=== PATIENT | male | born 1935 | race Caucasian/White ===

== ENCOUNTER 2022-08-05 05:32 | Inpatient (IN) | payer MEDICARE, SELFPAY ==
[2022-08-05] VITALS (175 sets, daily range): BP systolic 87–119; BP diastolic 45–75; PULSE 65–87; RESP 11–33; TEMP 36.5–36.6; O2SAT 74–99; BMI 22.3
--- NOTE | 2022-08-05 05:49 | ECG_ITS ---
[facility] Test Date: 2022-08-05 Pat Name: Donny Marshall Department: Room: ICU02 Gender: Male Irrigator: : 1935 Requested By: Virginia Romero Order Number: [id number] Crystal MD: Benigno Geller M.D. Measurements Intervals [place] Rate: 86 P: 39 VA: 136 QRS: -54 QRSD: 129 T: 74 QT: 386 QTc: 464 Interpretive Statements SINUS RHYTHM LEFT ANTERIOR FASCICULAR BLOCK [QRS AXIS <= -45, QR IN I, RS IN II] MARKED ST DEPRESSION, CONSIDER SUBENDOCARDIAL INJURY [0.2+ mV ST DEPRESSION] ACUTE [place] No previous ECG available for comparison Electronically Signed On 08-05-2022 17:37:12 CDT by Benigno Geller M.D. [id number]
--- NOTE | 2022-08-05 05:52 | XRR_ITS ---
PROCEDURE INFORMATION: Exam: XR Chest Exam date and time: 08/05/2022 6:00 AM Age: 87 years old Clinical indication: Shortness of breath; Prior surgery; Surgery date: 6+ months; Surgery type: Cabg. Valve replacement; Patient HX: SOB. History of chf. TECHNIQUE: Imaging protocol: Radiologic exam of the chest. Views: 1 view. COMPARISON: No relevant prior studies available. FINDINGS: Lungs: There is central lower lung predominant ground-glass opacity. Central interstitial markings are ill-defined. Pleural spaces: There is no pleural effusion or pneumothorax. Heart/Mediastinum: There is mild enlargement of the cardiac silhouette. Bones/joints: Sternal wires are present. There is no displacement to suggest sternal dehiscence. No acute fracture. XR/XR chest 1V portable [id number] IMPRESSION: Probable pulmonary edema. Infection is not excluded.
--- NOTE | 2022-08-05 05:52 | USCV_ITS ---
Donny Marshall Age: 87 Gender: M : 1935 Exam Date: 08/05/2022 08:09 Ordering Phys: Virginia Romero MD Technologist: Ariel Bland Exam Location: [facility] [place] Indication: nstemi BP: 112 / 64 HR: 75 Rhythm: Sinus Technical Quality: Technically difficult study MEASUREMENTS (Male / Female) Normal Values 2D ECHO LVOT Diameter 2.0 cm LV Ejection Fraction MOD 2C 35.6 % LV Ejection Fraction 2C AL 36.6 % IVC Diameter 1.5 cm DOPPLER AV Peak Velocity 256.4 cm/s LVOT Peak Velocity 83.0 cm/s AV Area Cont Eq vti 1.1 cm squared AV Area Cont Eq pk 1.0 cm squared MV Area PHT 5.0 cm squared Mitral E to A Ratio 2.1 MV E' Velocity 74.0 cm/s Mitral E to MV E' Ratio 31.9 Mitral E to LV E' Lateral Ratio 32.6 Mitral E to LV E' Septal Ratio 31.9 TR Peak Velocity 233.0 cm/s TR Peak Gradient 21.7 mmHg TV Peak E Velocity 76.0 cm/s Right Atrial Pressure 3.0 mmHg Pulmonary Artery Systolic Pressu 24.7 mmHg FINDINGS Left Ventricle Technically limited quality echocardiogram. Grossly LV systolic function is moderately reduced with EF of 35 to 40%. Right Ventricle Not well visualized Right Atrium Not well visualized Left Atrium Not well visualized Mitral Valve Mitral valve is grossly thickened and calcified. Aortic Valve Not well-visualized. Mildly elevated gradients across the aortic valve with mean gradient across aortic valve is 17 mmHg. Tricuspid Valve Not well-visualized. Trace tricuspid regurgitation Pulmonic Valve Not well visualized Pericardium Grossly normal Aorta Normal in size IVC Not well visualized CONCLUSIONS Technically limited quality echocardiogram because of poor ultrasonic windows. Grossly LV systolic function is moderately reduced with EF of 35 to 40%. Mildly elevated gradients across aortic valve with mean gradient across valve of 17mmHg. Trace tricuspid regurgitation. No comparison studies are available. Benigno Geller MD (Electronically Signed) Final Date: 05 August 2022 18:46 S
--- NOTE | 2022-08-05 05:58 | USCV_ITS ---
Donny Marshall Age: 87 Gender: M : 1935 Exam Date: 08/05/2022 08:38 Ordering Phys: Virginia Romero MD Technologist: Ariel Bland [place] [facility] [place]: edema PROCEDURES: Venous duplex imaging was performed in bilateral lower extremities. The venous duplex Doppler examination of both lower extremities was performed in the standard fashion. Bilaterally, the common femoral, superficial femoral, profunda femoral, popliteal, posterior tibial, greater saphenous veins, and the peroneal trunk . FINDINGS: Normal 2-D Doppler and augmentation and compressibility throughout the lower extremity venous structures. Additional imaging through the proximal calf veins also reveals no thrombus. Limited evaluation of the greater saphenous vein is patent with no thrombus. CONCLUSIONS No DVT bilateral lower extremities. Dr. Kathia Holliday DO (Electronically Signed) Final Date: 05 August 2022 11:28 S
[2022-08-05] MEDS: FUROsemide 10 mg/mL SDV 4mL 40 MG IVP ×3 (06:07→18:58)
[2022-08-05] MEDS: heparin drip 25,000 UNIT/500 ML PREMIX 20 UNIT IV (06:08)
[2022-08-05 06:11] LABS: Basophils % 0.2 %; Eosinophils % 0.1 %; Hematocrit 26.1 % (42.0-52.0); Hemoglobin 8.7 g/dL (11.7-16.6); Lymphocytes # 1.8 10^3/uL (0.8-4.8); Lymphocytes % 14.7 %; Mean Corpuscular HGB Conc 33.3 g/dL (30.0-36.0); Mean Corpuscular Volume 98.9 fl (80-94); Monocytes # 1.2 10^3/uL (0.2-0.9); Monocytes % 9.8 %; Neutrophils # 9.36 10^3/uL (1.8-7.7); Neutrophils % 74.7 %; Nucleated Red Blood Cells % 0 %; Platelet Count 206 10^3/cmm (130-400); Red Blood Count 2.64 10^6/uL (4.1-5.3); Red Cell Distribution Width 15.3 % (12.1-15.1); White Blood Count 12.5 10^3/uL (4.0-10.0)
[2022-08-05 06:28] LABS: Alanine Aminotransferase 23 U/L (0-41); Albumin Level 3.4 g/dL (3.5-5.2); Alkaline Phosphatase 50 U/L (40-130); Anion Gap 14.2 (5-19); Aspartate Amino Transferase 26 U/L (0-40); Blood Urea Nitrogen 38 mg/dL (8-23); Calcium 7.9 mg/dL (8.5-10.5); Carbon Dioxide 26 mmol/L (22-29); Chloride 96 mmol/L (98-107); Globulin 2.1 g/dL (1.3-4.6); Glucose 128 mg/dL (65-115); Osmolality Calculated 285 mOsm/kg (285-295); Potassium 4.2 mmol/L (3.5-5.1); Sodium 132 mmol/L (136-145); Total Bilirubin 0.3 mg/dL (0.15-1.2); Total Protein 5.5 g/dL (6.6-8.7)
[2022-08-05 06:32] LABS: Troponin(5th) Baseline 134 ng/L (0-15)
[2022-08-05] MEDS: morphine 4 mg/mL SDV 1 mL 2 MG IVP ×2 (06:48→15:57)
[2022-08-05 06:53] LABS: Partial Thromboplastin Time 196.9 SECONDS (23.9-36.7)
[2022-08-05 07:11] LABS: ABG PCO2 46.2 mmHg (35-45); Arterial Blood Gas Hematocrit 28.7 % (42-52); Base Excess ABG 2.9 mmol/L (-2.0-2.0); Blood Gas Allen Test Pos; Blood Gas Operator Identificat WALCI; Blood Gas Sample Site Radial, right; Blood Gas Sample Type Arterial; HCO3 ABG 28.3 mmol/L (22-26); Oxygen Device NRB; PO2 ABG 79.5 mmHg (80.0-100.0)
--- NOTE | 2022-08-05 07:12 | PM.HP ---
Providers/Chief Complaint Admitting Physician: Virginia Romero MD Chief Complaint: Chest Pain History of Present Illness Donny Marshall is a 87 year old male with a past medical history of CAD, status post CABG many years ago, history of aortic valve replacement, history of abdominal aortic aneurysm, last stents placed in 2018. He presented to [facility] last evening with chief complaints of chest pain which started close to 9 PM. Patient was in his usual state of health prior to this. Pain was rated 8 out of 10, substernal, associated with diaphoresis and shortness of breath. Patient is significantly dyspneic at the time of arrival at our facility. He is requiring 10 L on nonrebreather mask and saturating 94%. Patient's blood pressure at the outside facility was 90/60 so he did receive a 2 L fluid bolus and was running IV fluids which have now been discontinued due to concern for CHF. At this present time he rates his chest pain as 6 out of 10. States that his breathing is slightly better than before. He has not received any diuretics thus far. EMS did give him 2-3 nitros which appeared to improve in pain, however further doses have been held off due to soft blood pressures. His EKG is showing diffuse ST depression between leads V2 to V6, baseline troponin here is at 136. Previous values of Trop I from [facility] are at 0.012 and 0.04. Since presenting to the hospital he has developed a slight cough however did not have any complains of fever chills cough or expectoration prior to being at the hospital. Review of Systems General: Reports: 10 or more systems reviewed and unremarkable except in HPI and below Const: Denies: fever(s), chills or body aches Eyes: Denies: change in vision, blurry vision or photophobia ENMT: Reports: hoarseness; Denies: throat pain, enlarged tonsils, odynophagia or nasal congestion Card: Denies: chest pain, palpitations, irregular heart rhythm, edema, swelling of feet/ankles, lightheadedness, pre-syncope, dyspnea on exertion or orthopnea Resp: Denies: dyspnea, productive cough, non-productive cough, wheezing, stridor, pain on inspiration, change in phlegm color, hemoptysis or chest congestion GI: Denies: abdominal pain, nausea, vomiting, hematemesis, coffee ground emesis, dysphagia, heartburn, diarrhea, constipation, GI cramping, change in stool character, hematochezia or melena : Denies: flank pain, dysuria, urinary frequency, urinary urgency, urinary hesitancy or hematuria Musc: Denies: neck pain, back pain, extremity pain, joint swelling, joint warmth or deformity Neuro: Denies: headache(s), numbness in extremities, weakness in extremities, sensory changes, difficulty walking, frequent falls, dizziness, vertigo, behavioral changes, Slurred speech present or seizure-like activity Psych: Denies: anxiety, depression, suicidal ideation or homicidal ideation Endo: Denies: polyuria, polydipsia, tired all the time, cold intolerance or hot flashes Khris/Lymph: Denies: easy bruising or easy bleeding Medications/Allergies Allergies Allergy/AdvReac Type Severity Reaction Status Date / Time No Known Allergies Allergy Verified 08/05/22 05:50 PFSH Acute PFSH: Medical History (Updated 08/05/22 @ 07:20 by Virginia Romero MD) Abdominal aortic aneurysm Coronary artery disease Hypertension Surgical History (Updated 08/05/22 @ 07:17 by Virginia Romero MD) Aortic valve replaced S/P CABG (coronary artery bypass graft) Vitals/I&O/Wt Last Vital Signs Temp 97.9 F 08/05/22 05:30 Pulse 80 08/05/22 06:30 Resp 31 H 08/05/22 06:48 BP 117/64 08/05/22 06:30 Pulse Ox 94 08/05/22 06:48 O2 Del Method Non-Rebreather 08/05/22 05:46 08/04/22 08/05/22 08/05/22 22:59 06:59 14:59 Intake Total 15.333 / 15.333 Balance 15.333 / 15.333 Weight last 48 hrs Weight 72.5 kg Physical Exam Narrative: General: Tachypneic, on NRB currently HEENT: PERRLA, pupils bilaterally equal and reactive, pallors not present Chest: Crackles to auscultation bilateral infra axillary and infrascapular areas. CVS: S1-S2 regular, no murmurs, no tachycardia, no gallops, no rubs Abdomen: Soft, nontender, no organomegaly, bowel sounds present Neuro: No focal deficits, no facial deformity, AO x3, power 5/5 in all limbs Extremities: Pitting edema bilateral lower extremities Urinary Catheter Management: Elizabeth: Cath Placed During This Visit: yes Urinary Catheter Date of Insertion: 08/05/22 Urinary Catheter Time of Insertion: 06:15 Data 08/05/22 05:59 08/05/22 05:59 A&P Assessment and plan (1) NSTEMI (non-ST elevated myocardial infarction): Admit to ICU 87-year-old male with significant past medical history as above presenting currently with chest pain that started last night. EKG shows diffuse ST depression between leads V2 to V6. Baseline troponin here is at 130, previously dropped by from [facility] at 0.01-1.04. Patient is currently on a heparin drip which was started at outside hospital, we will continue the same He has received aspirin 325 and 3 nitros via EMS. Further doses of nitroglycerin are being held currently because of low blood pressure. Aspirin 81 mg, atorvastatin 40 mg going forward. Initial MAP 55 upon arrival, started on Levophed infusion with a goal map of greater than 65. Hypotension may be a result of nitrate therapy versus cardiogenic shock. Echocardiogram has been ordered. Cardiology consult (2) CHF (congestive heart failure): Clinically showing signs of CHF. Bilateral lower extremity edema BNP 1300 from outside hospital Check chest x-ray, bilateral crackles on auscultation currently. Unable to comment on type or chronicity of heart failure. Patient reports he takes Lasix at home, does not know his last EF. Echo ordered today Lasix 40 mg IV stat, further to be dependent on urine output Discontinue IV fluids as started at outside hospital Stat ABG, followed by BiPAP if needed, currently patient is requiring 10 to 11 L/min via nonrebreather mask. He is okay to be intubated if needed to undergo coronary angiogram today. Prior records requested from [facility]. (3) Cardiogenic shock: Currently on Levophed, titrated to a map of 65 Plan DVT prophylaxis: Currently on a heparin drip which will suffice Full code All updates discussed with his son Gigi Marshall, son request that we call son with all updates and not patient's as she is currently ill. Attestations Medical Necessity Statement*: Greater than 2 midnight admission will be needed for above defined care Coding Level of Care Code Critical Care >/= 30 minutes Diagnoses NSTEMI (non-ST elevated myocardial infarction) I21.4 CHF (congestive heart failure) I50.9 Cardiogenic shock R57.0
[2022-08-05] MEDS: ondansetron 2 mg/ML SDV 2 mL 4 MG IVP (07:34)
--- NOTE | 2022-08-05 07:46 | ECG_ITS ---
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 Measurements Intervals Davin Rate: 73 P: 34 OK: 156 QRS: -39 QRSD: 109 T: 91 QT: 389 QTc: 431 Interpretive Statements SINUS RHYTHM LEFT AXIS DEVIATION [QRS AXIS < -30] SEPTAL MYOCARDIAL INFARCTION , PROBABLY OLD [40+ ms Q WAVE IN V1/V2] ST DEPRESSION, CONSIDER SUBENDOCARDIAL INJURY [0.1+ mV ST DEPRESSION] No previous ECG available for comparison Electronically Signed On 08-05-2022 17:38:40 CDT by Benigno Geller M.D. [id number]
[2022-08-05] MEDS: perflutren protein-a microsphr 0.22 mg/mL SDV 3 mL IV (08:48)
--- NOTE | 2022-08-05 09:19 | P.CONIM_ITS ---
Providers/Reason For Consult Consulting Physician/Specialty*: Benigno Geller MD/ Cardiology Reason for Consult*: NSTEMI Requesting Physician: Dr Romero Attending Physician: Reese Garcia History of Present Illness History of Present Illness Donny Marshall is a 87 year old male With past medical history of CAD s/p CABG x2,Aortic valve replacement who presented to outside hospital with several hours of substernal chest pain. It was severe in intensity. He was transferred to our center overnight. Initial troponin was 134 . Still having mild to moderate substernal chest pain.EKG shows diffuse ST depressions with aVR elevation.Patient is also having significant shortness of breath and on non- rebreather mask. Review of Systems General: Reports: 10 or more systems reviewed and unremarkable except in HPI and below Const: Denies: fever(s), chills or body aches Eyes: Denies: change in vision, blurry vision or photophobia ENMT: Reports: hoarseness; Denies: throat pain, enlarged tonsils, odynophagia or nasal congestion Card: Denies: chest pain, palpitations, irregular heart rhythm, edema, swelling of feet/ankles, lightheadedness, pre-syncope, dyspnea on exertion or orthopnea Resp: Denies: dyspnea, productive cough, non-productive cough, wheezing, stridor, pain on inspiration, change in phlegm color, hemoptysis or chest catrina estion GI: Denies: abdominal pain, nausea, vomiting, hematemesis, coffee ground emesis, dysphagia, heartburn, diarrhea, constipation, GI cramping, change in stool character, hematochezia or melena : Denies: flank pain, dysuria, urinary frequency, urinary urgency, urinary hesitancy or hematuria Musc: Denies: neck pain, back pain, extremity pain, joint swelling, joint warmth or deformity Neuro: Denies: headache(s), numbness in extremities, weakness in extremities, sensory changes, difficulty walking, frequent falls, dizziness, vertigo, behavioral changes, Slurred speech present or seizure-like activity Psych: Denies: anxiety, depression, suicidal ideation or homicidal ideation Endo: Denies: polyuria, polydipsia, tired all the time, cold intolerance or hot flashes Khris/Lymph: Denies: easy bruising or easy bleeding Medications/Allergies Home Medications Medication Instructions Recorded Confirmed Last Taken Type allopurinol 300 mg tablet 300 mg PO DAILY 08/05/22 08/05/22 Unknown History amlodipine 10 mg tablet 10 mg PO QPM 08/05/22 08/05/22 Unknown History atorvastatin 80 mg tablet 80 mg PO QPM 08/05/22 08/05/22 Unknown History carvedilol 6.25 mg tablet 12.5 mg PO BID 08/05/22 08/05/22 Unknown History furosemide 20 mg tablet 40 mg PO DAILY 08/05/22 08/05/22 Unknown History hydralazine 25 mg tablet 25 mg PO Q8H 08/05/22 08/05/22 Unknown History levothyroxine 88 mcg tablet 88 mcg PO QAM 08/05/22 08/05/22 Unknown History potassium chloride 20 mEq 20 meq PO QAM 08/05/22 08/05/22 Unknown History tablet,extended release prednisone 20 mg tablet 20 mg PO BID 08/05/22 08/05/22 Unknown History rivaroxaban 15 mg tablet (Xarelto) 15 mg PO QPM 08/05/22 08/05/22 Unknown History tamsulosin 0.4 mg capsule 0.4 mg PO QPM 08/05/22 08/05/22 Unknown History tramadol 50 mg tablet 50 mg PO Q8H PRN Pain 08/05/22 08/05/22 Unknown History vitamin B12 2,500 mcg-folic acid 1 tab PO DAILY 08/05/22 08/05/22 Unknown History 400 mcg disintegrating tablet Allergies Allergy/AdvReac Type Severity Reaction Status Date / Time No Known Allergies Allergy Verified 08/05/22 05:50 Current Medications Generic Name Dose Route Start Last Admin Trade Name Farshadq PRN Reason Stop Dose Admin Norepinephrine Bitartrate 4 mg 254 mls @ 0 mls/hr 08/05/22 06:00 08/05/22 06:07 / Dextrose IV 2 mcg/min .Q0M MELISSA 7.62 mls/hr Administration Protocol Per Protocol Heparin Sodium/Sodium Chloride 25,000 unit in 500 mls @ 0 mls/hr 08/05/22 06:00 08/05/22 06:54 Heparin Drip IV 0 unit/kg/hr .Q0M MELISSA 0 mls/hr Titration Protocol Per Protocol Morphine Sulfate 2 mg 08/05/22 06:26 08/05/22 06:48 Morphine 4 Mg/Ml Sdv 1 Ml IVP 2 mg Q4H PRN Administration SEVERE PAIN Ondansetron HCl 4 mg 08/05/22 06:28 08/05/22 07:34 Ondansetron 2 Mg/Ml Sdv 2 Ml IVP 4 mg Q6H PRN Administration NAUSEA AND VOMITING PFSH Acute PFSH: Medical History Abdominal aortic aneurysm Coronary artery disease Hypertension Surgical History Aortic valve replaced S/P CABG (coronary artery bypass graft) Vitals/I&O/Wt Last Vital Signs Temp 97.9 F 08/05/22 07:36 Pulse 75 08/05/22 07:43 Resp 24 H 08/05/22 07:30 BP 111/62 08/05/22 07:30 Pulse Ox 94 08/05/22 09:17 O2 Del Method Non-Rebreather 08/05/22 05:46 FiO2 80 08/05/22 09:17 08/04/22 08/05/22 08/05/22 22:59 06:59 14:59 Intake Total 15.333 / 15.333 Output Total 500 / 500 Balance 15.333 / 15.333 -500 / -500 Weight last 48 hrs Weight 159 lb 13.362 oz Physical Exam Narrative: GENERAL: Patient is alert, On nonrebreather mask NECK: No jugular vein distension. [] HEENT: No cyanosis. No icterus. No pallor. [] HEART: Regular S1 and S2. ] LUNGS: Bilateral crackles CENTRAL NERVOUS SYSTEM: Grossly nonfocal. [] EXTREMITIES: Lower extremities with 1+ edema bilaterally. Urinary Catheter Management: Elizabeth: Cath Placed During This Visit: yes Urinary Catheter Date of Insertion: 08/05/22 Urinary Catheter Time of Insertion: 06:15 Data 08/05/22 05:59 08/05/22 05:59 A&P Assessment and plan (1) CHF (congestive heart failure): (2) NSTEMI (non-ST elevated myocardial infarction): (3) Cardiogenic shock: Plan Patient has presented with non-STEMI,Cardiogenic shock and is having active chest discomfort. We will diurese patient further. Will put him on BiPAP. As patient is having chest pain, will proceed with coronary angiogram in a few hours. Trend troponins. Titrate levophed IV heparin ECHO ordered Dual antiplatelet therapy Thank you for involving us with care of this patient. We will continue to follow. Please call with questions Consult Attestations Medical Necessity Statement: Care expected to cross 2 midnights. Coding Level of Care Code Acute Code for [facility] Fwd Diagnoses CHF (congestive heart failure) I50.9 NSTEMI (non-ST elevated myocardial infarction) I21.4 Cardiogenic shock R57.0
[2022-08-05 09:27] LABS: Troponin 5 2HR 466.7 ng/L (0-15); Troponin 5 2HR Delta 332.7 ABS# (0-10)
--- NOTE | 2022-08-05 09:43 | PC.NURSE ---
Patient son, Gigi, notified of current plan, updated on vitals and possibility of intubation during procedure and that patient will go to [employer] on Bipap. Son verbalized understanding and had no questions at this time.
[2022-08-05] MEDS: aspirin 81 mg EC Tablet PO (09:51)
--- NOTE | 2022-08-05 09:56 | XACV_ITS ---
Exam Room: [facility] Ht: 180 cm Wt: 72 kg BSA: 1.90 m2 Gender: Male : 1935 Exam Priority: Routine Procedure(s): Procedure Description: Diagnostic procedure Procedure Description: Venous Graft Catheterization Procedure Description: BLAS Graft Catheterization Procedure Description: Miscellaneous Procedure Description: ACT Procedure Description: Coronary Angiography Diagnostic Cath Status: Urgent Diagnostic Findings * Bypass grafts: * BLAS to LAD is patent. SVG to RCA is patent. SVG to LCx is patent. Post anastamosis tun[place]biloxi arteries have diffuse disease. * Left Main: total occlusion, TERRIE: 0 flow. * Proximal Right Coronary Artery: total occlusion, TERRIE: 0 flow. * Coronary angiography shows right dominance. PCI Status: Elective Conclusions 1. 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 4. . 5. Bypass grafts are patent. [place] arteries after anastomosis have diffuse disease. 6. Patient has prior CABG. Recommendations * Guideline directed heart failure management. * Medical therapy for non-ST elevation MN. Possibly had a thrombus that resolved with medical therapy. * Transfer back to ICU. Interventional RX Recommendation: medical therapy and/or counseling Diagnostic RX Recommendation: medical therapy and/or counseling Pressures Phase:Rest AO : 75 / 53 ( 63 ) @ 12:23:00 PM 97 / 47 ( 66 ) @ 12:29:00 PM 96 / 49 ( 67 ) @ 12:32:00 PM 74 / 57 ( 66 ) @ 12:33:00 PM Clinical Evaluation EBL: 5mL-10mL Procedural Details Procedure Consent Obtained. Pre-Procedure Time Out. Identified patient by full name and date of as verbalized by the patient/guarantor. Does the consent match the physician's order: Yes. Accurate & Complete Informed Consent: Yes. Inpatient/Outpatient History & Physical on Chart: Yes. If H&P is completed, is and addenduem needed: No; If yes, is the addendum complete: N/A. Visualize and Verify Site with Patient/Guarantor: N/A. Relevant Radiology Images available: N/A. The risks, benefits, and alternatives of sedation and/or procedure were discussed by physician. The patient agrees to continue. Procedure started. [facility] Clinical Fraility Score: 6: Moderately Frail. [employer] Indications: ACS <= 24 hours. Chest Pain Symptom Assessment: Typical Angina Symptoms. Correct patient, site and procedure confirmed by cath team. PERRLA. Strong, equal hand manufacturing mechanic bilaterally. Lungs clear x 5 lobes. IV Site on Arrival: 20 gauge in the right anticubital. IV Site on Arrival: 18 gauge in the left anticubital. Pre Procedural Pulses: bilateral dorsalis pedis was Doppled. Pt on bipap mangaged by Resp. bilateral groins was prepped with chloroprep then draped in the usual sterile fashion. Baseline sample Acquired. HR: 81 BPM. Physician notified. Admit Source: In Patient. Physician arrived. Physician scrubbed in. Immediate Pre-Procedure Time Out. Correct Patient: Yes; Correct Procedure: Yes; Correct Site: Yes; Correct Patient Position: Yes; Correct Supplies: Yes; Dried Flammable Prep: Yes; Blood Products Available: N/A;. Left AC- leovophed 2mcg/mins arrived running. IV Fluids: 0.9% NaCl at KVO. 0 mL infused prior to concrete plant laborer. Lidocaine 1% infiltrated to the right groin. Arterial access obtained with micropuncture set. A 5 [place] JL4 catheter in over wire. ACT drawn. Results 136 seconds. Therapeutic limits - pre-heparin administration 90-150 seconds and monitoring heparin during a vascular procedure >250 seconds. Views taken of left [place] coronary artery. Catheter out. A 5 [place] JR4 catheter in over wire. Multiple views taken of [place] right coronary artery. SVG's to RCA visualized and patent. BLAS to LAD visualized. Glidewire inserted. Catheter out. Wire out. Physician review of cine films. Post Procedure: Pulses reassessed and unchanged. PERRLA. Strong, equal hand manufacturing mechanic bilaterally. No VTE prophylaxis required. Medication's Wasted: Lidocaine 1% = 1 mL. Medication's Wasted: Heparin = 1000 units. Medication's Wasted: Other = 1 mg versed. Medication's Wasted: Other = 75 mcg fentanyl. Total IV fluids: 37 mL. A Manual Compression was successful obtaining hemostatsis at the Right Femoral artery insertion site. Post-op diagnosis: patent bypass grafts, occulded tun[place]bilox[place] arteries. Complications: none. Estimated blood loss: 5mL-10mL. Responsiveness - Normal response to verbal stimuli; alert and oriented, PERRLA. Airway - Unaffected, no intervention required; spontaneous ventilation. Circulation: W/N/L, pulses unchanged. Nausea/Vomiting: No. Procedure completed. Patient transferred by bed to ICU. Vital chart was stopped. Procedure started. Access Site Site: Right Femoral artery Sheath Size: 6 Fr Hemostasis Method: Manual Compression Hemostasis Success: Successful Procedure Medications Start: 11:17 AM Stop: 11:17 AM Medication: Versed 1 mg and Fentanyl 25 mcg Amount: 1 Route: I.V. I, the attending physician, have reviewed and verified all procedure medications. Yes, all medications given per verbal order History/Risk Factors Hypertension: Yes Dyslipidemia: No Peripheral Arterial Disease (PAD): No Myocardial Infarction (MN): No Obesity: No Prior Interventions PCI: Yes CABG: Yes Valve Surgery: No Report Signatures Finalized by Benigno Geller MD on 08/15/2022 01:07 PM
--- NOTE | 2022-08-05 10:58 | PC.NURSE ---
Patient in care of collaborative teacher staff at this time. RT with patient for Bipap set up.
--- NOTE | 2022-08-05 11:10 | W.PM.OPSUD ---
Surgery/Procedure H&P Update DATE OF PROCEDURE: August 05, 2022 DATE H&P PERFORMED: 08/05/22 H&P UPDATE INFORMATION: I have reviewed H&P completed within last 30 days, I have examined patient prior to procedure and No changes to prior documentation PREOP DIAGNOSIS: NSTEMI/Pulmonary edema PRIMARY INDICATION FOR PROCEDURE: NSTEMI/Pulmonary edema PLANNED PROCEDURE: Left heart cath with possible percutaneous coronary intervention PATIENT REASSESSED PRIOR TO SEDATION, WITH NO CHANGE NOTED: Yes PHYSICAL EXAM: alert, oriented x 3 and regular rate & rhythm OTHER PERTINENT EXAM FINDINGS: Has mild crackles bilaterally AIRWAY EVAL/ANESTHESIA PLAN: normal airway, ASA IV, Local Anesthesia, Risks, benefits & alternatives of sedation and/or procedure discussed and Patient agrees to continue as planned ADDITIONAL INFORMATION: Moderate sedation
--- NOTE | 2022-08-05 13:08 | ECG_ITS ---
[facility] Test Date: 2022-08-05 Pat Name: Donny Marshall Department: Room: ICU02 Gender: Male Cap Blocker: : 1935 Requested By: Virginia Romero Order Number: [id number] Crystal MD: Benigno Geller M.D. Measurements Intervals [place] Rate: 72 P: 47 SC: 150 QRS: -39 QRSD: 106 T: 90 QT: 400 QTc: 439 Interpretive Statements SINUS RHYTHM LEFT AXIS DEVIATION [QRS AXIS < -30] MODERATE ST DEPRESSION [0.05+ mV ST DEPRESSION] Compared to ECG 08/05/2022 07:46:38 Myocardial infarct finding no longer present ST (T wave) deviation still present Electronically Signed On 08-05-2022 17:37:57 CDT by Benigno Geller M.D. [id number]
[2022-08-05 13:12] LABS: Troponin 5 6HR 1152 ng/L (0-15); Troponin 5 6HR Delta 1018 ng/L (0-12)
[2022-08-05 14:22] LABS: Magnesium 1.8 mg/dL (1.7-2.3)
[2022-08-05] MEDS: clopidogrel 300 mg Tablet PO (16:10)
--- NOTE | 2022-08-05 20:00 | P.PN_ITS ---
Subjective Subjective: During visit this morning after he received Lasix, started on BiPAP, he reports he is feeling slightly better. Chest pain improving. Denies pleuritic component. Vitals/I&O/Wt Last Vital Signs Temp 97.7 F 08/05/22 16:00 Pulse 82 08/05/22 18:30 Resp 24 H 08/05/22 18:30 BP 100/62 08/05/22 18:30 Pulse Ox 91 08/05/22 18:30 O2 Del Method BiPAP 08/05/22 11:13 O2 Flow Rate 60 08/05/22 17:13 FiO2 90 08/05/22 17:13 08/05/22 08/05/22 08/05/22 06:59 14:59 22:59 Intake Total 15.333 / 15.333 0 / 0 Output Total 1400 / 1400 1300 / 2700 Balance 15.333 / 15.333 -1400 / -1400 -1300 / -2700 Weight last 48 hrs Weight 72.5 kg Physical Exam Const: COMMON NORMALS: patient oriented x3 and alert GENERAL APPEARANCE: cooperative ORIENTATION/CONSCIOUSNESS: Yes awake OTHER: Sitting up in bed. BiPAP on. HENMT: COMMON NORMALS: oropharynx normal Resp: AUSCULTATION: diminished lung sounds Cardio: COMMON NORMALS: regular rhythm, S1 normal heart sound present, S2 normal heart sound present and No murmurs present (Cardio) RHYTHM: regular rhythm HEART SOUNDS: S1 normal heart sound present and S2 normal heart sound present GI: COMMON NORMALS: Normal to inspection, nondistended, normoactive bowel sounds present, Soft to palpation and non-tender PALPATION: Yes Soft to palpation Extremity: COMMON NORMALS: no joint enlargement GENERAL: Yes edema (3+) Neuro: COMMON NORMALS: patient oriented x3 and moves all extremities SENSORIUM/ORIENTATION: Yes alert Urinary Catheter Management: Elizabeth: Cath Placed During This Visit: yes Reason for Continuing Indwelling Catheter: Accurate Measurement of Urinary Output in Critically Ill Patients Urinary Catheter Date of Insertion: 08/05/22 Urinary Catheter Time of Insertion: 06:15 Data 08/05/22 05:59 08/05/22 05:59 A&P Assessment and plan (1) NSTEMI (non-ST elevated myocardial infarction): Underwent coronary angiography without findings of any significant blockage. Consideration of possible clot that has resolved with treatment. Differential diagnosis including possibly myocarditis. Appears to be less likely secondary to PE, without pleuritic symptoms, tachycardia, no RV strain. Venous duplex was done as well and without DVT. Currently continues on anticoagulation. Consider additional assessment subsequently. Assess respiratory viral panel. Echocardiogram noted with decrease ejection fraction, 35-40%. Technically limited. Continue aspirin 81 mg, atorvastatin 40 mg going forward. Initial MAP 55 upon arrival, started on Levophed infusion with a goal map of g reater than 65. Suspected cardiogenic shock improving, weaning of pressor. Discussed with cardiology. (2) CHF (congestive heart failure): Acute systolic CHF. Showing improvement so far with Lasix, BiPAP support. Improvement in crackling. In negative balance, producing urine. Reassess volume status, renal function. Subjectively he states is starting to feel better. Follow-up chemistry panel requested. Follow-up chest x-ray. Magnesium 1.8. Replacement requested. Follow-up magnesium. Clinically showing signs of CHF. Bilateral lower extremity edema BNP 1300 from outside hospital He is okay to be intubated if needed to undergo coronary angiogram today. Prior records requested from [facility]. (3) Cardiogenic shock: Improving. Weaning off Levophed. Plan DVT prophylaxis: Currently on a heparin drip which will suffice Full code All updates discussed with his son Gigi Marshall, son request that we call son with all updates and not patient's as she is currently ill. Attestations Medical Necessity Statement*: Continue mission for assessment management of NSTEMI, acute CHF Coding Level of Care Code Critical Care >/= 30 minutes Critical care time (in minutes): 35 The high probability of a clinically significant, sudden or life threatening deterioration, as referenced in this documentation, required my full and direct attention, intervention and personal management. The critical care time shown is in addition to time spent performing any reported separately billable procedures and includes the following: [x] Data and vital sign review and interpretation [x ] Patient assessment, examination and intervention [x] Medication orders and management [x] Patient/Family updates as able [x] Care Coordination and Documen tation. Diagnoses NSTEMI (non-ST elevated myocardial infarction) I21.4 CHF (congestive heart failure) I50.9 Cardiogenic shock R57.0
[2022-08-05] MEDS: magnesium sulfate premix 2 GM/50 ML PIGGYBACK IV (20:39)
[2022-08-05 20:59] LABS: Adenovirus Not Detected (NOT DETECT); Chlamydia Pneumoniae Not Detected (NOT DETECT); Coronavirus 229E,HKU1,NL63,OC4 Not Detected (NOT DETECT); Human Metapneumovirus Not Detected (NOT DETECT); Human Rhinovirus/Enterovirus Not Detected (NOT DETECT); Influenza A Not Detected (NOT DETECT); Influenza A H1 Not Detected (NOT DETECT); Influenza A H1-2009 Not Detected (NOT DETECT); Influenza A H3 Not Detected (NOT DETECT); Influenza B Not Detected (NOT DETECT); Mycoplasma Pneumoniae Not Detected (NOT DETECT); Parainfluenza Virus Type 1 Not Detected (NOT DETECT); Parainfluenza Virus Type 2 Not Detected (NOT DETECT); Parainfluenza Virus Type 3 Not Detected (NOT DETECT); Parainfluenza Virus Type 4 Not Detected (NOT DETECT); Respiratory Syncytial Virus A Not Detected (NOT DETECT); Respiratory Syncytial Virus B Not Detected (NOT DETECT); SARS-COV-2 Not Detected (NOT DETECT)
[2022-08-06] VITALS (242 sets, daily range): BP systolic 92–124; BP diastolic 56–92; PULSE 70–101; RESP 11–32; TEMP 36.8–37.4; O2SAT 84–100
[2022-08-06 01:29] LABS: Partial Thromboplastin Time 80.3 SECONDS (23.9-36.7)
[2022-08-06 04:13] LABS: Basophils % 0.1 %; Hematocrit 29.7 % (42.0-52.0); Hemoglobin 9.6 g/dL (11.7-16.6); Lymphocytes # 1.2 10^3/uL (0.8-4.8); Lymphocytes % 6.3 %; Mean Corpuscular HGB Conc 32.3 g/dL (30.0-36.0); Mean Corpuscular Hemoglobin 32.7 pg (28.0-34.0); Mean Platelet Volume 10.5 fL (7.4-10.4); Monocytes # 1.7 10^3/uL (0.2-0.9); Neutrophils # 15.81 10^3/uL (1.8-7.7); Neutrophils % 84.1 %; Nucleated Red Blood Cells % 0 %; Platelet Count 222 10^3/cmm (130-400); Red Blood Count 2.94 10^6/uL (4.1-5.3); Red Cell Distribution Width 15.7 % (12.1-15.1); White Blood Count 18.8 10^3/uL (4.0-10.0)
[2022-08-06 04:42] LABS: Alanine Aminotransferase 53 U/L (0-41); Albumin Level 3.2 g/dL (3.5-5.2); Alkaline Phosphatase 59 U/L (40-130); Aspartate Amino Transferase 238 U/L (0-40); Blood Urea Nitrogen 33 mg/dL (8-23); Calcium 7.9 mg/dL (8.5-10.5); Carbon Dioxide 27 mmol/L (22-29); Chloride 97 mmol/L (98-107); Globulin 2.2 g/dL (1.3-4.6); Glucose 128 mg/dL (65-115); Magnesium 2.3 mg/dL (1.7-2.3); Osmolality Calculated 289 mOsm/kg (285-295); Sodium 135 mmol/L (136-145); Total Bilirubin 0.3 mg/dL (0.15-1.2); Total Protein 5.4 g/dL (6.6-8.7)
[2022-08-06 04:44] LABS: Anion Gap 15.1 (5-19); Potassium 4.1 mmol/L (3.5-5.1)
[2022-08-06] MEDS: FUROsemide 10 mg/mL SDV 4mL 40 MG IVP ×2 (06:02→15:43)
[2022-08-06] MEDS: morphine 4 mg/mL SDV 1 mL 2 MG IVP ×2 (07:40→23:08)
[2022-08-06] MEDS: ALPRAZolam 0.5 mg Tablet 0.25 MG PO (07:40)
[2022-08-06] MEDS: aspirin 81 mg EC Tablet PO (07:41)
[2022-08-06 08:06] LABS: Partial Thromboplastin Time 108.7 SECONDS (23.9-36.7)
--- NOTE | 2022-08-06 08:19 | PM.PN ---
Subjective Subjective: Patient underwent coronary angiogram Yesterday that showed a patent BLAS to LAD, SVG to RCA and SVG to left circumflex artery.[place] coronary arteries are totally occluded.Patient is feeling better. Denies chest pain. Breathing is improved. He is diuresing well. Vitals/I&O/Wt Last Vital Signs Temp 97.7 F 08/05/22 16:00 Pulse 84 08/06/22 07:20 Resp 18 08/06/22 07:40 BP 121/76 08/06/22 06:00 Pulse Ox 95 08/06/22 07:40 O2 Del Method BiPAP 08/06/22 07:20 O2 Flow Rate 60 08/05/22 17:13 FiO2 90 08/06/22 07:20 08/05/22 08/06/22 08/06/22 22:59 06:59 14:59 Intake Total 159.601 / 159.601 174.8 / 334.401 148.733 / 148.733 Output Total 1625 / 3025 300 / 3325 Balance -1465.399 / -2865.399 -125.2 / -2990.599 148.733 / 148.733 Weight last 48 hrs Weight 157 lb 10.088 oz Weight 159 lb 13.362 oz Physical Exam Narrative: GENERAL: Patient is alert, On BiPAP NECK: No jugular vein distension. [] HEENT: No cyanosis. No icterus. No pallor. [] HEART: Regular S1 and S2. ] LUNGS: Bilateral crackles CENTRAL NERVOUS SYSTEM: Grossly nonfocal. [] EXTREMITIES: Lower extremities with 1+ edema bilaterally. Urinary Catheter Management: Elizabeth: Cath Placed During This Visit: yes Reason for Continuing Indwelling Catheter: Accurate Measurement of Urinary Output in Critically Ill Patients Urinary Catheter Date of Insertion: 08/05/22 Urinary Catheter Time of Insertion: 06:15 Data 08/06/22 03:48 08/06/22 03:48 A&P Assessment and plan (1) CHF (congestive heart failure): (2) NSTEMI (non-ST elevated myocardial infarction): (3) Cardiogenic shock: Plan Patient has non-ST elevation HI. However Bypass grafts are patent.Possibly may have formed thrombus that resolved with anticogulation. Dual antiplatelet therapy with aspirin and plavix. Continue heparin gtt for 48 hours. Continue IV diuresis. Patient diuresing well. Close I and Os. Renal function is improving. ECHO shows moderate to severe LV dysfunction. Once blood pressure is stable, will start low dose beta blockers. Thank you for involving us with care of this patient. We will continue to follow. Please call with questions Attestations Medical Necessity Statement*: Care expected to cross 2 midnights. Coding Level of Care Code Acute Code for g Fwd Diagnoses CHF (congestive heart failure) I50.9 NSTEMI (non-ST elevated myocardial infarction) I21.4 Cardiogenic shock R57.0
--- NOTE | 2022-08-06 08:59 | PC.PHAR ---
Vanc trough to be drawn before 3rd dose assuming stable renal function.... Patient: Floor: Age: 87 yo Serum creatinine: 1.2 mg/dL Height: 70.9 Inches Weight (kg): 71 IBW (kg): 75.07 Dosing wt(kg): 71 Estimated Creatinine clearance (ml/min): 45.2 CRCL method: Cockcroft and Gault using ibw(default). Drug selected: Vancomycin Loading dose (mg): Vd (liters): 49.7 (factor used: 0.7 L/kg) Michael (hr-1): 0.042 Half life (hrs): 16.50 CLvanco=?? 2.087 L/hr Recommended dose: 1250 mg Interval: 24 hrs Infusion time (hrs): 1 Predicted peak (mcg/mL): 38.8 Predicted trough (mcg/mL): 14.77 Total body weight is being used for vancomycin dosing. Renal function is stable [ ] /unstable [ ] Recommendations: Give Vancomycin 1250 mg q 24 hrs with an expected Cpeak of 38.8 mcg/ml and an expected Ctrough of 14.77 mcg/ml AUC 0-24 /LIDYA Data: LIDYA 0.5 mcg/mL:?? AUC/LIDYA:? 1197.9 LIDYA 1.0 mcg/mL:?? AUC/LIDYA:? 598.9 --------- LIDYA 1.5 mcg/mL:?? AUC/LIDYA:? 399.3 LIDYA 2.0 mcg/mL:?? AUC/LIDYA:? 299.5 Renal dosing of other antibiotics (review renal dosing of other medications and list guidelines here): Thank you for the consult, will continue to follow. Signature: Christiano Staples PharmD
[2022-08-06] MEDS: clopidogrel 75 mg Tablet PO (09:37)
[2022-08-06] MEDS: vancomycin 1,250 MG/250 ML PIGGYBACK 200 MG IV (09:37)
[2022-08-06] MEDS: cefepime 1,000 MG in sodium chloride 0.9% (plus) 50 ML 100 MG IV ×2 (09:37→23:08)
[2022-08-06 10:27] LABS: Add Urine Microscopic? YES; Bilirubin Urine Neg (Negative); Blood Urine 2+ (Negative); Glucose Urine UA Norm (Normal); Ketones Urine Negative (Negative); Leukocyte Esterase Urine Negative (Negative); Nitrate Urine Negative (Negative); Protein Urine Neg (Negative); Specific Gravity, Urine 1.015 (1.005-1.030); Urine Appearance Clear (CLEAR); Urine Color Yellow (Yellow); Urobilinogen Urine Neg (Negative); pH Urine 5 (5-7)
[2022-08-06 10:28] LABS: Add Urine Culture? No; Bacteria Urine TRACE /hpf; Mucus Urine 1+ /hpf; RBC Urine 0-4 /hpf (0-2); Squamous Epithelial Cell Urine 0-4 /hpf (0-5); WBC Urine 0-4 /hpf (0-5)
[2022-08-06] MEDS: heparin drip 25,000 UNIT/500 ML PREMIX 20 UNIT IV (13:20)
[2022-08-06 14:14] LABS: Partial Thromboplastin Time 85.4 SECONDS (23.9-36.7)
[2022-08-06] MEDS: fixodent 39 gm Tube 1 APPLIC DENTAL (14:52)
--- NOTE | 2022-08-06 15:43 | PC.NURSE ---
Patient O2 on monitor remaining in mid to upper 80's, Patient on bipap at this time. Urine output for shift thus far 550ml with 480ml oral intake. Dr. Garcia verbally okayed giving dose of Lasix now instead of scheduled 1900 time.
[2022-08-06 20:06] LABS: Albumin Level 3.2 g/dL (3.5-5.2); Alkaline Phosphatase 60 U/L (40-130); Blood Urea Nitrogen 40 mg/dL (8-23); Calcium 7.9 mg/dL (8.5-10.5); Carbon Dioxide 21 mmol/L (22-29); Chloride 98 mmol/L (98-107); Globulin 2.6 g/dL (1.3-4.6); Glucose 170 mg/dL (65-115); Osmolality Calculated 292 mOsm/kg (285-295); Sodium 134 mmol/L (136-145); Total Bilirubin 0.3 mg/dL (0.15-1.2); Total Protein 5.8 g/dL (6.6-8.7)
[2022-08-06 20:07] LABS: Anion Gap 19.6 (5-19); Potassium 4.6 mmol/L (3.5-5.1)
[2022-08-06 20:08] LABS: Alanine Aminotransferase 51 U/L (0-41); Aspartate Amino Transferase 192 U/L (0-40)
[2022-08-06 20:09] LABS: Creatine Phosphokinase 780 U/L (39-308)
--- NOTE | 2022-08-06 20:11 | PC.NURSE ---
Notified primairy nurse, DORCAS Wallis of critical result
--- NOTE | 2022-08-06 20:14 | PC.NURSE ---
Notified greenhouse worker of order for picc line placement tonight.
--- NOTE | 2022-08-06 20:28 | P.PN_ITS ---
Subjective Subjective: On BiPAP this morning, he is subjectively continue to improve. Denies chest pain or pressure. Breathing continuing to improve. Vitals/I&O/Wt Last Vital Signs Temp 99.3 F 08/06/22 18:10 Pulse 93 08/06/22 19:42 Resp 32 H 08/06/22 19:42 BP 119/68 08/06/22 18:10 Pulse Ox 93 08/06/22 19:42 O2 Del Method BiPAP 08/06/22 19:42 O2 Flow Rate 6 08/06/22 15:55 FiO2 40 08/06/22 19:42 08/06/22 08/06/22 08/06/22 06:59 14:59 22:59 Intake Total 174.8 / 334.401 692.066 / 692.066 720 / 1412.066 Output Total 300 / 3325 550 / 550 Balance -125.2 / -2990.599 692.066 / 692.066 170 / 862.066 Weight last 48 hrs Weight 71.5 kg Weight 72.5 kg Physical Exam Const: COMMON NORMALS: patient oriented x3 and alert GENERAL APPEARANCE: cooperative ORIENTATION/CONSCIOUSNESS: Yes awake OTHER: Sitting up in bed. BiPAP on. HENMT: COMMON NORMALS: oropharynx normal Resp: AUSCULTATION: diminished lung sounds Cardio: COMMON NORMALS: regular rhythm, S1 normal heart sound present, S2 normal heart sound present and No murmurs present (Cardio) RHYTHM: regular rhythm HEART SOUNDS: S1 normal heart sound present and S2 normal heart sound present GI: COMMON NORMALS: Normal to inspection, nondistended, normoactive bowel sounds present, Soft to palpation and non-tender PALPATION: Yes Soft to palpation Extremity: COMMON NORMALS: no joint enlargement GENERAL: Yes edema (3+) Neuro: COMMON NORMALS: patient oriented x3 and moves all extremities SENSORIUM/ORIENTATION: Yes alert Urinary Catheter Management: Elizabeth: Cath Placed During This Visit: yes Reason for Continuing Indwelling Catheter: Accurate Measurement of Urinary Output in Critically Ill Patients Urinary Catheter Date of Insertion: 08/05/22 Urinary Catheter Time of Insertion: 06:15 Data 08/06/22 03:48 08/06/22 19:30 A&P Assessment and plan (1) CHF (congestive heart failure): Improving this morning, and negative balance, maintaining blood pressure, weaning down on oxygen requirement, came down to as low as 40% on FiO2 on BiPAP, wean down to nasal cannula 6 L. However, in the afternoon again somewhat worse breathing, had to go back on BiPAP at 40%. Noted some decrease in urine output. Bladder scan obtained, no sign of retention in the bladder. Rechecked blood chemistry, noted rise in BUN and creatinine up to 40, creatinine up to 1.6. Acute systolic CHF. Showing improvement so far with Lasix, BiPAP support. Improvement in crackling. In negative balance, producing urine. Reassess volume status, renal function. Subjectively he states is starting to feel better. Follow-up chemistry panel requested. Follow-up magnesium 2.3 Clinically showing signs of CHF. Bilateral lower extremity edema BNP 1300 from outside hospital (2) ANGELLA (acute kidney injury): With noted decrease in urine output this afternoon, rechecking chemistry, BUN up to 40, creatinine up to 1.6 from 1.2 earlier this morning. Requesting albumin infusion, changed Lasix to Lasix drip. Bladder scan obtained, without sign of retention in the bladder. Obtaining nephrology consultation. Kidney ultrasound. CK checked, 780. UA done earlier today without significant hematuria, 0.4 RBC. (3) NSTEMI (non-ST elevated myocardial infarction): Underwent coronary angiography without findings of any significant blockage. Consideration of possible clot that has resolved with treatment. Differential diagnosis including possibly myocarditis. Appears to be less likely secondary to PE, without pleuritic symptoms, tachycardia, no RV strain. Venous duplex was done as well and without DVT. Currently continues on anticoagulation. Consider additional assessment subsequently. Assess respiratory viral panel. Echocardiogram noted with decrease ejection fraction, 35-40%. Technically limited. Continue aspirin 81 mg, atorvastatin 40 mg going forward. Initial MAP 55 upon arrival, started on Levophed infusion with a goal map of greater than 65. Suspected cardiogenic shock improving, weaning of pressor. Discussed with cardiology. (4) Cardiogenic shock: Improving. Weaning off Levophed. (5) Goals of care, counseling/discussion: In addition to above conditions discussed worsening renal function with his son vicky, he will be also visited by his sister tomorrow, they will be further considering with regards to possibility of need of hemodialysis. Discussed despite initial improvement he still remains in critical condition, currently p rognosis in jeopardy with worsening renal function. The family are not sure that he would want overly aggressive care, however, will try to visit with him further. Plan DVT prophylaxis: Currently on a heparin drip which will suffice Full code All updates discussed with his son Gigi Marshall, son request that we call son with all updates and not patient's as she is currently ill. Attestations 2 Medical Necessity Statement*: Continue admission for assessment management of decompensated CHF with decreased ejection fraction, respiratory failure, worsening renal function in a gentleman of advanced age. Coding Level of Care Code Critical Care >/= 30 minutes Critical care time (in minutes): 65 The high probability of a clinically significant, sudden or life threatening deterioration, as referenced in this documentation, required my full and direct attention, intervention and personal management. The critical care time shown is in addition to time spent performing any reported separately billable procedures and includes the following: [x] Data and vital sign review and interpretation [x ] Patient assessment, examination and intervention [x] Medication orders and management [x] Patient/Family updates as able [x] Care Coordination and Documentation. Diagnoses CHF (congestive heart failure) I50.9 ANGELLA (acute kidney injury) N17.9 NSTEMI (non-ST elevated myocardial infarction) I21.4 Cardiogenic shock R57.0 Goals of care, counseling/discussion Z71.89
[2022-08-06] MEDS: atorvastatin 40 mg Tablet PO (22:07)
--- NOTE | 2022-08-06 22:26 | XRR_ITS ---
PROCEDURE INFORMATION: Exam: XR Chest Exam date and time: 08/06/2022 10:35 PM Age: 87 years old Clinical indication: Device placement; Picc; Additional info: Picc placement TECHNIQUE: Imaging protocol: Radiologic exam of the chest. Views: 1 view. COMPARISON: CR (CHEST, ) 08/05/2022 6:00 AM FINDINGS: Tubes, catheters and devices: Right-sided PICC line with tip in the superior vena cava. Lungs: Bilateral hilar to lower lobe atelectasis versus infiltrate. Pleural spaces: Unremarkable. No pleural effusion. No pneumothorax. Heart/Mediastinum: Cardiomegaly, pulmonary vascular congestion and interstitial edema. Bones/joints: Sternotomy wires. XR/XR chest 1V portable [id number] IMPRESSION: 1. Right-sided PICC line with tip in the superior vena cava. 2. Sternotomy wires. 3. Cardiomegaly, pulmonary vascular congestion and interstitial edema. 4. Bilateral hilar to lower lobe atelectasis versus infiltrate.
[2022-08-06] MEDS: albumin 25 G/100 ML BAG 60 G IV (23:06)
[2022-08-06] MEDS: FUROsemide 100 MG in sodium chloride 0.9% 40 ML IV (23:07)
[2022-08-06 23:45] LABS: Partial Thromboplastin Time 57.8 SECONDS (23.9-36.7)
[2022-08-07] VITALS (99 sets, daily range): BP systolic 76–125; BP diastolic 51–77; PULSE 70–114; RESP 10–37; TEMP 36.4–36.9; O2SAT 83–99; BMI 24.3
[2022-08-07 05:33] LABS: Basophils % 0.1 %; Hematocrit 25.9 % (42.0-52.0); Hemoglobin 8.4 g/dL (11.7-16.6); Lymphocytes # 1.3 10^3/uL (0.8-4.8); Lymphocytes % 9.2 %; Mean Corpuscular HGB Conc 32.4 g/dL (30.0-36.0); Mean Corpuscular Hemoglobin 33.1 pg (28.0-34.0); Mean Platelet Volume 10.8 fL (7.4-10.4); Monocytes # 1.3 10^3/uL (0.2-0.9); Monocytes % 9.3 %; Neutrophils # 11.35 10^3/uL (1.8-7.7); Neutrophils % 80.8 %; Nucleated Red Blood Cells % 0 %; Platelet Count 184 10^3/cmm (130-400); Red Blood Count 2.54 10^6/uL (4.1-5.3); Red Cell Distribution Width 16.1 % (12.1-15.1)
[2022-08-07 05:45] LABS: Partial Thromboplastin Time 51.4 SECONDS (23.9-36.7)
[2022-08-07 05:47] LABS: Alanine Aminotransferase 39 U/L (0-41); Albumin Level 3.3 g/dL (3.5-5.2); Alkaline Phosphatase 51 U/L (40-130); Blood Urea Nitrogen 49 mg/dL (8-23); Calcium 8.6 mg/dL (8.5-10.5); Carbon Dioxide 27 mmol/L (22-29); Chloride 96 mmol/L (98-107); Globulin 2.3 g/dL (1.3-4.6); Glucose 138 mg/dL (65-115); Magnesium 2.3 mg/dL (1.7-2.3); Osmolality Calculated 295 mOsm/kg (285-295); Sodium 135 mmol/L (136-145); Total Bilirubin 0.4 mg/dL (0.15-1.2); Total Protein 5.6 g/dL (6.6-8.7)
[2022-08-07] MEDS: heparin 5,000 unit/mL INJ 1 mL IV ×2 (05:51→20:06)
[2022-08-07 06:11] LABS: Anion Gap 16.9 (5-19); Aspartate Amino Transferase 113 U/L (0-40); Potassium 4.9 mmol/L (3.5-5.1)
[2022-08-07] MEDS: cefepime 1,000 MG in sodium chloride 0.9% (plus) 50 ML 100 MG IV ×2 (08:37→21:22)
[2022-08-07] MEDS: clopidogrel 75 mg Tablet PO (08:39)
[2022-08-07] MEDS: aspirin 81 mg EC Tablet PO (08:39)
--- NOTE | 2022-08-07 08:51 | P.CONIM_ITS ---
Providers/Reason For Consult Consulting Physician/Specialty*: [facility]/Nephrology Reason for Consult*: ANGELLA Attending Physician: Reese Garcia Primary Care Provider: Reva Alcantara MD History of Present Illness History of Present Illness Patient is a 87-year-old male with past medical history of coronary artery disease status post CABG, history of aortic valve replacement presented to the hospital due to chest pain and shortness of breath. Patient required nonrebreather mask on presentation . Patient was seen by cardiology, noted to be in cardiogenic shock with NSTEMI, currently on BiPAP and Lasix drip. Creatinine was normal on presentation worsened to 1.6 currently, nonoliguric with urine output of around 1100 cc in the last 24 hours. Electrolytes are stable. Review of Systems Narrative: CANNOT OBTAIN Medications/Allergies Home Medications Medication Instructions Recorded Confirmed Last Taken Type allopurinol 300 mg tablet 300 mg PO DAILY 08/05/22 08/05/22 Unknown History amlodipine 10 mg tablet 10 mg PO QPM 08/05/22 08/05/22 Unknown History atorvastatin 80 mg tablet 80 mg PO QPM 08/05/22 08/05/22 Unknown History carvedilol 6.25 mg tablet 12.5 mg PO BID 08/05/22 08/05/22 Unknown History furosemide 20 mg tablet 40 mg PO DAILY 08/05/22 08/05/22 Unknown History hydralazine 25 mg tablet 25 mg PO Q8H 08/05/22 08/05/22 Unknown History levothyroxine 88 mcg tablet 88 mcg PO QAM 08/05/22 08/05/22 Unknown History potassium chloride 20 mEq 20 meq PO QAM 08/05/22 08/05/22 Unknown History tablet,extended release prednisone 20 mg tablet 20 mg PO BID 08/05/22 08/05/22 Unknown History rivaroxaban 15 mg tablet (Xarelto) 15 mg PO QPM 08/05/22 08/05/22 Unknown Hi story tamsulosin 0.4 mg capsule 0.4 mg PO QPM 08/05/22 08/05/22 Unknown History tramadol 50 mg tablet 50 mg PO Q8H PRN Pain 08/05/22 08/05/22 Unknown History vitamin B12 2,500 mcg-folic acid 1 tab PO DAILY 08/05/22 08/05/22 Unknown History 400 mcg disintegrating tablet Allergies Allergy/AdvReac Type Severity Reaction Status Date / Time No Known Allergies Allergy Verified 08/05/22 05:50 Current Medications Generic Name Dose Route Start Last Admin Trade Name Freq PRN Reason Stop Dose Admin Alprazolam 0.25 mg 08/05/22 13:29 08/06/22 07:40 Alprazolam 0.5 Mg Tablet PO 0.25 mg TID PRN Administration ANXIETY Aspirin 81 mg 08/05/22 09:00 08/07/22 08:39 Aspirin 81 Mg Ec Tablet PO 81 mg DAILY MELISSA Administration Atorvastatin Calcium 40 mg 08/05/22 21:00 08/06/22 22:07 Atorvastatin 40 Mg Tablet PO 40 mg BEDTIME MELISSA Administration Clopidogrel Bisulfate 75 mg 08/06/22 09:00 08/07/22 08:39 Clopidogrel 75 Mg Tablet PO 75 mg DAILY MELISSA Administration Denture Adhesive 1 applic 08/06/22 14:44 08/06/22 14:52 Fixodent 39 Gm Tube DENTAL 1 applic PRN PRN Administration denture adhesive Heparin Sodium (Porcine) 0 unit 08/05/22 05:53 08/07/22 05:51 Heparin 5,000 Unit/Ml Inj 1 Ml IV 1,400 unit PRN PRN Administration Heparin weight-base protocol Protocol Norepinephrine Bitartrate 4 mg 254 mls @ 0 mls/hr 08/05/22 06:00 08/07/22 01:40 / Dextrose IV 2 mcg/min .Q0M MELISSA 7.62 mls/hr Administration Protocol Per Protocol Heparin Sodium/Sodium Chloride 25,000 unit in 500 mls @ 0 mls/hr 08/05/22 06:00 08/07/22 05:48 Heparin Drip IV 13.1 unit/kg/hr .Q0M MELISSA 19 mls/hr Titration Protocol Per Protocol Cefepime HCl 1,000 mg/ Sodium 50 mls @ 100 mls/hr 08/06/22 09:15 08/07/22 08:37 Chloride IV 100 mls/hr Q12H MELISSA Administration Protocol Vancomycin/PEG/NADA/Lysine/Water 1,250 mg in 250 mls @ 200 mls/hr 08/06/22 10:00 08/06/22 11:22 Vancocin IV Infused Q24H MELISSA Infusion Furosemide 100 mg/ Sodium 50 mls @ 0 mls/hr 08/06/22 20:45 08/06/22 23:07 Chloride IV 5 mg/hr .Q0M MELISSA 2.5 mls/hr Administration Protocol Per Protocol Morphine Sulfate 2 mg 08/05/22 06:26 08/06/22 23:08 Morphine 4 Mg/Ml Sdv 1 Ml IVP 2 mg Q4H PRN Administration SEVERE PAIN Ondansetron HCl 4 mg 08/05/22 06:28 08/05/22 07:34 Ondansetron 2 Mg/Ml Sdv 2 Ml IVP 4 mg Q6H PRN Administration NAUSEA AND VOMITING PFSH Acute 2 PFSH: Medical History Abdominal aortic aneurysm Coronary artery disease Hypertension Surgical History Aortic valve replaced S/P CABG (coronary artery bypass graft) Vitals/I&O/Wt Last Vital Signs Temp 98.5 F 08/07/22 06:00 Pulse 83 08/07/22 08:15 Resp 25 H 08/07/22 08:15 BP 106/64 08/07/22 08:15 Pulse Ox 94 08/07/22 08:15 O2 Del Method BiPAP 08/07/22 07:45 O2 Flow Rate 6 08/06/22 15:55 FiO2 50 08/07/22 08:00 08/06/22 08/07/22 08/07/22 22:59 06:59 14:59 Intake Total 830 / 1522.066 479 / 2001.066 Output Total 700 / 700 400 / 1100 Balance 130 / 822.066 79 / 901.066 Weight last 48 hrs Weight 79 kg Weight 71.5 kg Physical Exam Narrative: ON bipap , no distress Urinary Catheter Management: Elizabeth: Cath Placed During This Visit: yes Reason for Continuing Indwelling Catheter: Accurate Measurement of Urinary Output in Critically Ill Patients Urinary Catheter Date of Insertion: 08/05/22 Urinary Catheter Time of Insertion: 06:15 Data 08/07/22 05:00 08/07/22 05:00 A&P Assessment and plan (1) ANGELLA (acute kidney injury): Plan 1. Acute kidney injury: Secondary to shock-cardiogenic, currently on Levophed. Creatinine stable at 1.6, electrolytes stable and nonoliguric. Patient has volume overload with pulmonary edema and requiring BiPAP at 50% FiO2, will review the urine output and FiO2 requirements this afternoon and if no improvement will consider CRRT. 2. Coronary artery disease, history of CABG, now presented with NSTEMI, plans per cardiology, on Lasix drip If no significant response to Lasix drip will consider CRRT 3. Hyponatremia: Mild, monitor 4. Anemia: Hemoglobin 8.4 check iron studies transfuse if hemoglobin less than 7 Patient evaluated using audiovisual cart. Time spent 45 minutes Coding Level of Care Code Acute Code for Chg Fwd Diagnoses ANGELLA (acute kidney injury) N17.9
--- NOTE | 2022-08-07 09:27 | PM.PN ---
Subjective Subjective: Patient is chest pain-free. Still requiring BiPAP. Shortness of breath yesterday. Urine output has decreased. Creatinine went up today. Vitals/I&O/Wt Last Vital Signs Temp 98.5 F 08/07/22 06:00 Pulse 83 08/07/22 08:15 Resp 25 H 08/07/22 08:15 BP 106/64 08/07/22 08:15 Pulse Ox 94 08/07/22 08:15 O2 Del Method BiPAP 08/07/22 07:45 O2 Flow Rate 6 08/06/22 15:55 FiO2 50 08/07/22 08:00 08/06/22 08/07/22 08/07/22 22:59 06:59 14:59 Intake Total 830 / 1522.066 479 / 2001.066 240 / 240 Output Total 700 / 700 400 / 1100 Balance 130 / 822.066 79 / 901.066 240 / 240 Weight last 48 hrs Weight 174 lb 2.643 oz Weight 157 lb 10.088 oz Physical Exam Narrative: GENERAL: Patient is alert, On BiPAP NECK: No jugular vein distension. [] HEENT: No cyanosis. No icterus. No pallor. [] HEART: Regular S1 and S2. ] LUNGS: Bilateral crackles CENTRAL NERVOUS SYSTEM: Grossly nonfocal. [] EXTREMITIES: Lower extremities with 1+ edema bilaterally. Urinary Catheter Management: Elizabeth: Cath Placed During This Visit: yes Reason for Continuing Indwelling Catheter: Accurate Measurement of Urinary Output in Critically Ill Patients Urinary Catheter Date of Insertion: 08/05/22 Urinary Catheter Time of Insertion: 06:15 Data 08/08/22 02:15 08/08/22 07:00 A&P Assessment and plan (1) CHF (congestive heart failure): (2) NSTEMI (non-ST elevated myocardial infarction): (3) Cardiogenic shock: Plan Patient has non-ST elevation MT. However Bypass grafts are patent.Possibly may have formed thrombus that resolved with anticogulation. Medical therapy Dual antiplatelet therapy with aspirin and plavix. Continue heparin gtt for 48 hours. Nephrology on board. Lasix gtt. monitor renal function. Off levophed Thank you for involving us with care of this patient. We will continue to follow. Please call with questions Attestations Medical Necessity Statement*: Care expected to cross 2 midnights Coding Level of Care Code Acute Code for [facility] Fwd Diagnoses CHF (congestive heart failure) I50.9 NSTEMI (non-ST elevated myocardial infarction) I21.4 Cardiogenic shock R57.0
[2022-08-07] MEDS: vancomycin 1,250 MG/250 ML PIGGYBACK 200 MG IV (10:03)
[2022-08-07 12:01] LABS: Partial Thromboplastin Time 64.3 SECONDS (23.9-36.7)
[2022-08-07] MEDS: heparin drip 25,000 UNIT/500 ML PREMIX 19 UNIT IV (12:49)
[2022-08-07 14:48] LABS: Albumin Level 3.4 g/dL (3.5-5.2); Blood Urea Nitrogen 51 mg/dL (8-23); Calcium 8.5 mg/dL (8.5-10.5); Carbon Dioxide 25 mmol/L (22-29); Chloride 95 mmol/L (98-107); Glucose 155 mg/dL (65-115); Magnesium 2.3 mg/dL (1.7-2.3); Phosphorus 4.2 mg/dL (2.5-4.5); Sodium 133 mmol/L (136-145)
[2022-08-07 14:56] LABS: Anion Gap 17.5 (5-19); Potassium 4.5 mmol/L (3.5-5.1)
--- NOTE | 2022-08-07 16:25 | XRR_ITS ---
PROCEDURE INFORMATION: Exam: XR Chest Exam date and time: 08/07/2022 4:45 PM Age: 87 years old Clinical indication: Device placement; Other: Dialysis line placement; Additional info: Diaylsis line placement TECHNIQUE: Imaging protocol: Radiologic exam of the chest. Views: 1 view. COMPARISON: CR (CHEST, ) 08/06/2022 10:35 PM FINDINGS: Tubes, catheters and devices: Right PICC line terminates in the distal SVC. Right central dialysis line terminates at the cavoatrial junction. Lungs: Less conspicuous opacities at the lung bases. Pleural spaces: No pleural effusion. No pneumothorax. Heart/Mediastinum: Stable heart size. Bones/joints: Sternotomy wires noted. Visualized osseous structures are intact. XR/XR chest 1V portable [id number] IMPRESSION: Proper positioning of support apparatus.
[2022-08-07] MEDS: sodium chloride 0.9% 1,000 mL Bag CRRT (16:56)
[2022-08-07] MEDS: PrismaSol BGK 4/2.5 - 5,000 mL Bag 5000 ML CRRT ×5 (16:56→22:07)
--- NOTE | 2022-08-07 17:00 | PM.ACPR ---
Procedure/Consent Consent: Consent for Procedure: Consent obtained from patient, Risks & Benefits reviewed and Agrees to proceed with procedure Procedure Narrative: After obtaining informed consent, POCUS interrogation of the right atrial jugular vein demonstrated that it is patent and compressible. The right neck was prepped with ChloraPrep and sterilely draped. Ultrasound probe was draped into the field. Patient was placed in Trendelenburg position. Right internal jugular vein was cannulated under ultrasound visualization. Guidewire threaded to nearly 20 cm but no further. Angiocatheter was passed over the guidewire and the guidewire was removed with no blood return. The angiocatheter was removed and pressure was applied. Access was then obtained again under ultrasound visualization using the micropuncture needle. There was excellent blood return from the angiocatheter, and the guidewire threaded completely with no resistance. Stab wound was made over the wire with a #11 blade. Tract was sequentially dilated up using Seldinger technique. The catheter was then placed and guidewire removed. Both ports aspirated and flushed freely with saline. Catheter was not heparinized as treatment is to start immediately. Catheter was sutured in place with 3-0 silk and an occlusive sterile dressing was applied. Patient tolerated the procedure well. Chest x-ray confirmed catheter tip at the atriocaval junction and no pneumothorax. Acute Procedures Central Line Placement: Right IJ: Patient placed on monitor/pulse ox: Yes MD prep: mask, gown and gloves Central line prep: Chlorhexidine scrub and sterile drapes applied Local anesthesia used: lidocaine 1% Amount of anesthesia used (ml): 2 Ultrasound used for placement: Yes Central line lumen inserted: double (temporary dialysis catheter) Post procedure: sutured in place, good blood return, all ports aspirated, flushed, capped and sterile dressing applied Post procedure x-ray: tip of catheter in good position and no pneumothorax seen Patient tolerated procedure: well and no complications Complications: none
--- NOTE | 2022-08-07 17:28 | PC.NURSE ---
CRRT started at 1700. Lasix gtt held per Dr. King while patient is receiving CRRT.
[2022-08-07] MEDS: morphine 4 mg/mL SDV 1 mL 2 MG IVP (19:12)
[2022-08-07 19:49] LABS: Albumin Level 3.4 g/dL (3.5-5.2); Anion Gap 21.4 (5-19); Blood Urea Nitrogen 45 mg/dL (8-23); Calcium 8.5 mg/dL (8.5-10.5); Carbon Dioxide 22 mmol/L (22-29); Chloride 96 mmol/L (98-107); Glucose 158 mg/dL (65-115); Magnesium 2.4 mg/dL (1.7-2.3); Potassium 4.4 mmol/L (3.5-5.1); Sodium 135 mmol/L (136-145)
[2022-08-07] MEDS: ALPRAZolam 0.5 mg Tablet 0.25 MG PO (20:05)
[2022-08-07] MEDS: atorvastatin 40 mg Tablet PO (20:05)
--- NOTE | 2022-08-07 20:21 | P.PN_ITS ---
Subjective Subjective: No chest pain. Tolerating BiPAP okay. Did notice being more dyspneic last night. Had a discussion today with family, understanding that dialysis may not improve his kidney function, but may help his symptoms from congestive heart failure, may be associated with complications, but would also be able to discontinue it at any time in favor of comfort measures alone. Would start with CRRT, and consensus was that he decided to proceed with trial of dialysis. Vitals/I&O/Wt Last Vital Signs Temp 98.5 F 08/07/22 06:00 Pulse 92 08/07/22 19:47 Resp 26 H 08/07/22 19:12 BP 88/51 08/07/22 18:30 Pulse Ox 93 08/07/22 19:47 O2 Del Method BiPAP 08/07/22 07:45 O2 Flow Rate 6 08/06/22 15:55 FiO2 45 08/07/22 19:47 08/07/22 08/07/22 08/07/22 06:59 14:59 22:59 Intake Total 479 / 2001.066 673.317 / 673.317 415.930 / 1089.247 Output Total 400 / 1100 150 / 150 Balance 79 / 901.066 523.317 / 523.317 415.930 / 939.247 Weight last 48 hrs Weight 79 kg Weight 71.5 kg Physical Exam Narrative: On BiPAP. Later family at his bedside. Const: COMMON NORMALS: patient oriented x3 and alert GENERAL APPEARANCE: cooperative ORIENTATION/CONSCIOUSNESS: Yes awake OTHER: Sitting up in bed. BiPAP on. HENMT: COMMON NORMALS: oropharynx normal Resp: AUSCULTATION: diminished lung sounds Cardio: COMMON NORMALS: regular rhythm, S1 normal heart sound present, S2 normal heart sound present and No murmurs present (Cardio) RHYTHM: regular rhythm HEART SOUNDS: S1 normal heart sound present and S2 normal heart sound present GI: COMMON NORMALS: Normal to inspection, nondistended, normoactive bowel sounds present, Soft to palpation and non-tender PALPATION: Yes Soft to palpation Extremity: COMMON NORMALS: no joint enlargement GENERAL: Yes edema (1+) Neuro: COMMON NORMALS: patient oriented x3 and moves all extremities SENSORIUM/ORIENTATION: Yes alert Urinary Catheter Management: Elizabeth: Cath Placed During This Visit: yes Reason for Continuing Indwelling Catheter: Accurate Measurement of Urinary Output in Critically Ill Patients Urinary Catheter Date of Insertion: 08/05/22 Urinary Catheter Time of Insertion: 06:15 Data 08/07/22 05:00 08/07/22 19:25 A&P Assessment and plan (1) CHF (congestive heart failure): Persistent hypoxia, persistent congestive changes on chest x-ray, less conspicuous opacities on chest x-ray last night. Further reduction in urine output, oliguria, without urine production this afternoon despite Lasix drip, albumin. Requiring BiPAP at 45%. After extensive discussion consideration with both nephrology and myself patient and family decided that he would like to try dialysis with CRRT. Requested dialysis catheter. CRRT arrangements underway. Discussed with cardiology as well, continue current treatment. Monitor I&O, weights. Follow-up chemistry panel requested. Follow-up magnesium 2.4 Myocarditis considered less likely. (2) ANGELLA (acute kidney injury): Discussed with nephrology this morning. After additional morning and discussion as above, dialysis catheter requested. Starting CRRT. Kidney ultrasound reviewed, without acute findings. (3) NSTEMI (non-ST elevated myocardial infarction): Underwent coronary angiography without findings of any significant blockage. Considered clot that has resolved with treatment. Differential diagnosis including possibly myocarditis. Appears to be less likely secondary to PE, without pleuritic symptoms, tachycardia, no RV strain. Venous duplex was done as well and without DVT. Currently continues on anticoagulation. Consider additional assessment subsequently. Assess respiratory viral panel. Echocardiogram noted with decrease ejection fraction, 35-40%. Technically limited. Continue aspirin 81 mg, atorvastatin 40 mg going forward. Initial MAP 55 upon arrival, started on Levophed infusion with a goal map of greater than 65. Suspected cardiogenic shock improving, weaning of pressor. Discussed with cardiology. (4) Cardiogenic shock: Improving. Pressor support as needed to maintain MAP. (5) Goals of care, counseling/discussion: Discussion today regarding CODE STATUS he would not want chest compressions in case of cardiac arrest, but would be okay with defibrillation if needed. Additional Giurgius care discussion as above regarding hemodialysis with him, his and daughter who are at bedside as well as his son on speaker phone. Plan Lost IV access, PICC line placed. DVT prophylaxis: Currently on a heparin drip which will suffice Full code All updates discussed with his son Gigi Marshall, son request that we call son with all updates and not patient's as she is currently ill. Attestations Medical Necessity Statement*: Continue admission for assessment management of decompensated CHF with reduced ejection fraction, in the setting of oliguria progressing to anuria with acute renal failure requiring dialysis. Coding Level of Care Code Critical Care >/= 30 minutes Critical care time (in minutes): 55 The high probability of a clinically significant, sudden or life threatening deterioration, as referenced in this documentation, required my full and direct attention, intervention and personal management. The critical care time shown is in addition to time spent performing any reported separately billable procedures and includes the following: [x] Data and vital sign review and interpretation [x ] Patient assessment, examination and intervention [x] Medication orders and management [x] Patient/Family updates as able [x] Care Coordination and Documentation. Diagnoses CHF (congestive heart failure) I50.9 ANGELLA (acute kidney injury) N17.9 NSTEMI (non-ST elevated myocardial infarction) I21.4 Cardiogenic shock R57.0 Goals of care, counseling/discussion Z71.89
--- NOTE | 2022-08-07 21:00 | USR_ITS ---
PROCEDURE INFORMATION: Exam: US Retroperitoneal; Complete; Kidneys and Bladder Exam date and time: 08/07/2022 10:53 AM Age: 87 years old Clinical indication: Other: Marcus TECHNIQUE: Imaging protocol: Real-time ultrasound of the retroperitoneum with image documentation. Complete exam focused on the kidneys and bladder. COMPARISON: No relevant prior studies available. FINDINGS: Right kidney: The right kidney measures 10.7 cm in length. No stones. No hydronephrosis. Left kidney: The left kidney measures 11.3 cm in length. There is an exophytic simple cyst measuring 3.6 cm. No stones. No hydronephrosis. Urinary bladder: Suboptimally visualized due to under distension from Elizabeth catheter. US/US renal BI with PV bladder IMPRESSION: No acute findings.
[2022-08-07] MEDS: HYDROmorphone 1 mg/mL INJ 1 mL IVP (21:46)
[2022-08-07] MEDS: HYDROcodone-acetaminophen 5-325 mg Tablet 1 TAB PO (22:47)
[2022-08-07] MEDS: glycerin adult supp 1 EACH PR (22:49)
[2022-08-08] VITALS (104 sets, daily range): BP systolic 88–122; BP diastolic 47–80; PULSE 63–90; RESP 7–33; TEMP 35.7–36.2; O2SAT 86–99
[2022-08-08 01:09] LABS: Partial Thromboplastin Time 88.6 SECONDS (23.9-36.7)
--- NOTE | 2022-08-08 02:00 | PC.NURSE ---
Patient tolerated CRRT well with slight decrease in Hypotension. Levophed titrated accordingly up to a highest of 6mcg/min. Hospitalist notified of increase in pain primarily in back of neck. Patient reports recent fall with Xray signs of arthritis. Received new med orders from Dr. Kraft reflected in the MAR. Ecology Teacher reported that CRRT fluids were running low for prescribed PrismaSol. Message was left for Business Services Officer Nephrology to receive order for possible change in fluids. Voicemail was left around 0200 but did not receive call back untill 0630. Dr. King verbally gave approval to change fluids to and this nurse requested the put in the orders due to protocol. (Nurses are unable to change these orders). Information passed on to dayshift nurse with approximately one hour between next bag change due @ 0800.
[2022-08-08 02:29] LABS: Basophils % 0.1 %; Hematocrit 25.3 % (42.0-52.0); Hemoglobin 8.1 g/dL (11.7-16.6); Lymphocytes # 1.3 10^3/uL (0.8-4.8); Lymphocytes % 8.7 %; Mean Corpuscular Hemoglobin 32.7 pg (28.0-34.0); Monocytes # 1.2 10^3/uL (0.2-0.9); Monocytes % 7.9 %; Neutrophils # 12.43 10^3/uL (1.8-7.7); Neutrophils % 82.3 %; Nucleated Red Blood Cells % 0 %; Platelet Count 176 10^3/cmm (130-400); Red Blood Count 2.48 10^6/uL (4.1-5.3); White Blood Count 15.1 10^3/uL (4.0-10.0)
[2022-08-08 02:39] LABS: Albumin Level 3.2 g/dL (3.5-5.2); Anion Gap 14.5 (5-19); Blood Urea Nitrogen 38 mg/dL (8-23); Calcium 8.5 mg/dL (8.5-10.5); Carbon Dioxide 26 mmol/L (22-29); Chloride 100 mmol/L (98-107); Glucose 143 mg/dL (65-115); Magnesium 2.4 mg/dL (1.7-2.3); Phosphorus 3.6 mg/dL (2.5-4.5); Potassium 4.5 mmol/L (3.5-5.1); Sodium 136 mmol/L (136-145)
[2022-08-08] MEDS: HYDROmorphone 1 mg/mL INJ 1 mL IVP ×3 (03:13→20:56)
[2022-08-08] MEDS: PrismaSol BGK 4/2.5 - 5,000 mL Bag 5000 ML CRRT ×3 (03:17→03:23)
[2022-08-08 04:37] LABS: Alanine Aminotransferase 63 U/L (0-41); Albumin Level 3.2 g/dL (3.5-5.2); Alkaline Phosphatase 59 U/L (40-130); Anion Gap 14.5 (5-19); Aspartate Amino Transferase 87 U/L (0-40); Blood Urea Nitrogen 37 mg/dL (8-23); Calcium 8.3 mg/dL (8.5-10.5); Carbon Dioxide 26 mmol/L (22-29); Chloride 100 mmol/L (98-107); Globulin 2.5 g/dL (1.3-4.6); Glucose 136 mg/dL (65-115); Magnesium 2.5 mg/dL (1.7-2.3); Osmolality Calculated 293 mOsm/kg (285-295); Potassium 4.5 mmol/L (3.5-5.1); Sodium 136 mmol/L (136-145); Total Bilirubin 0.5 mg/dL (0.15-1.2); Total Protein 5.7 g/dL (6.6-8.7)
[2022-08-08] MEDS: HYDROcodone-acetaminophen 5-325 mg Tablet 1 TAB PO ×3 (05:58→19:42)
[2022-08-08 07:46] LABS: Albumin Level 3.3 g/dL (3.5-5.2); Anion Gap 14.9 (5-19); Blood Urea Nitrogen 30 mg/dL (8-23); Calcium 8.5 mg/dL (8.5-10.5); Carbon Dioxide 27 mmol/L (22-29); Chloride 99 mmol/L (98-107); Glucose 116 mg/dL (65-115); Magnesium 2.6 mg/dL (1.7-2.3); Phosphorus 3.3 mg/dL (2.5-4.5); Potassium 4.9 mmol/L (3.5-5.1); Sodium 136 mmol/L (136-145)
[2022-08-08 07:49] LABS: Partial Thromboplastin Time 72.2 SECONDS (23.9-36.7)
--- NOTE | 2022-08-08 08:06 | PM.PN ---
Subjective Subjective: Patient still short of breath. Not on pressors. On CRRT Vitals/I&O/Wt Last Vital Signs Temp 96.8 F L 08/08/22 02:30 Pulse 70 08/08/22 06:00 Resp 22 H 08/08/22 06:00 BP 110/63 08/08/22 06:00 Pulse Ox 91 08/08/22 06:00 O2 Del Method BiPAP 08/07/22 23:00 O2 Flow Rate 6 08/06/22 15:55 FiO2 45 08/08/22 04:00 08/07/22 08/08/22 08/08/22 22:59 06:59 14:59 Intake Total 428.122 / 1101.439 266.219 / 1367.658 Balance 428.122 / 951.439 266.219 / 1217.658 Weight last 48 hrs Weight 162 lb Weight 174 lb 2.643 oz Physical Exam Narrative: GENERAL: Patient is alert, On BiPAP NECK: No jugular vein distension. [] HEENT: No cyanosis. No icterus. No pallor. [] HEART: Regular S1 and S2. ] LUNGS: Bilateral crackles CENTRAL NERVOUS SYSTEM: Grossly nonfocal. [] EXTREMITIES: Lower extremities with 1+ edema bilaterally. Urinary Catheter Management: Elizabeth: Cath Placed During This Visit: yes Reason for Continuing Indwelling Catheter: Accurate Measurement of Urinary Output in Critically Ill Patients Urinary Catheter Date of Insertion: 08/05/22 Urinary Catheter Time of Insertion: 06:15 Data 08/09/22 04:03 08/09/22 07:39 A&P Assessment and plan (1) CHF (congestive heart failure): (2) NSTEMI (non-ST elevated myocardial infarction): (3) Cardiogenic shock: Plan Patient has non-ST elevation OR. However Bypass grafts are patent.Possibly had formed thrombus that resolved with anticogulation. Medical therapy Dual antiplatelet therapy with aspirin and plavix. Continue anticoagulation Nephrology on board. On CRRT. Off levophed Thank you for involving us with care of this patient. We will continue to follow. Please call with questions Attestations Medical Necessity Statement*: Care expected to cross 2 midnights. Coding Level of Care Code Acute Code for [facility] Diagnoses CHF (congestive heart failure) I50.9 NSTEMI (non-ST elevated myocardial infarction) I21.4 Cardiogenic shock R57.0
[2022-08-08] MEDS: [UNRECOGNIZED DRUG - OTHER] 5000 ML CRRT ×8 (08:45→22:45)
[2022-08-08] MEDS: aspirin 81 mg EC Tablet PO (09:17)
[2022-08-08] MEDS: clopidogrel 75 mg Tablet PO (09:17)
[2022-08-08] MEDS: cefepime 1,000 MG in sodium chloride 0.9% (plus) 50 ML 100 MG IV ×2 (09:17→21:07)
[2022-08-08] MEDS: vancomycin 1,250 MG/250 ML PIGGYBACK 200 MG IV (09:18)
--- NOTE | 2022-08-08 10:36 | PC.SOCIAL ---
IMM Update pg 2 of IMM updated. Patient is currently on BIPAP and in critical condition not anticipating DC in the next 24 hours. Called and left message w/ patients son. Provided CM number for call back if had any questions. Copy left @ bedside and copy dated, initialed and placed in chart.
--- NOTE | 2022-08-08 11:48 | P.PN_ITS ---
Subjective Subjective: on CRRT Medications: Reviewed: Yes Vitals/I&O/Wt Last Vital Signs Temp 96.2 F L 08/08/22 09:15 Pulse 68 08/08/22 10:34 Resp 16 08/08/22 10:00 BP 95/57 08/08/22 10:00 Pulse Ox 96 08/08/22 10:34 O2 Del Method BiPAP 08/08/22 09:15 O2 Flow Rate 45 08/08/22 09:15 FiO2 45 08/08/22 10:34 08/07/22 08/08/22 08/08/22 22:59 06:59 14:59 Intake Total 428.122 / 1101.439 266.219 / 1367.658 300 / 300 Balance 428.122 / 951.439 266.219 / 1217.658 300 / 300 Weight last 48 hrs Weight 73.482 kg Weight 79 kg Physical Exam Urinary Catheter Management: Elizabeth: Cath Placed During This Visit: yes Reason for Continuing Indwelling Catheter: Accurate Measurement of Urinary Output in Critically Ill Patients Urinary Catheter Date of Insertion: 08/05/22 Urinary Catheter Time of Insertion: 06:15 Data 08/08/22 02:15 08/08/22 07:00 A&P Assessment and plan (1) ANGELLA (acute kidney injury): Plan 1. Acute kidney injury: Secondary to shock-cardiogenic, currently on Levophed. Creatinine stable at 1.6, electrolytes stable and nonoliguric. Patient has volume overload with pulmonary edema and requiring BiPAP at 50% FiO2, CRRT started , tolerating well 2. Coronary artery disease, history of CABG, now presented with NSTEMI, plans p er cardiology, 3. Hyponatremia: Mild, monitor 4. Anemia: Hemoglobin 8.1 check iron studies transfuse if hemoglobin less than 7 Patient evaluated using audiovisual cart. Time spent 45 minutes Attestations Medical Necessity Statement*: PER MEDICINE Coding Level of Care Code Acute Code for [facility] Fwd Diagnoses ANGELLA (acute kidney injury) N17.9
--- NOTE | 2022-08-08 13:23 | P.PN_ITS ---
Subjective Subjective: Did not have overnight. Could not sleep very well. Feels sore in the back of his neck and legs hurt. Denies chest pain. Medications: Reviewed: Yes Vitals/I&O/Wt Last Vital Signs Temp 96.2 F L 08/08/22 09:15 Pulse 70 08/08/22 13:21 Resp 28 H 08/08/22 12:00 BP 94/66 08/08/22 12:00 Pulse Ox 95 08/08/22 13:21 O2 Del Method BiPAP 08/08/22 09:15 O2 Flow Rate 45 08/08/22 09:15 FiO2 45 08/08/22 13:21 08/07/22 08/08/22 08/08/22 22:59 06:59 14:59 Intake Total 428.122 / 1101.439 266.219 / 1367.658 300 / 300 Balance 428.122 / 951.439 266.219 / 1217.658 300 / 300 Weight last 48 hrs Weight 73.482 kg Weight 79 kg Physical Exam Const: COMMON NORMALS: patient oriented x3 and alert GENERAL APPEARANCE: cooperative and frail appearing ORIENTATION/CONSCIOUSNESS: Yes awake HENMT: COMMON NORMALS: oropharynx normal OTHER: Full face BiPAP mask. Neck/C-Spine: COMMON NORMALS: no JVD Resp: COMMON NORMALS: normal respiratory effort AUSCULTATION: diminished lung sounds Cardio: COMMON NORMALS: no JVD, regular rhythm, S1 normal heart sound present, S2 normal heart sound present and No murmurs present (Cardio) RHYTHM: regular rhythm HEART SOUNDS: S1 normal heart sound present and S2 normal heart sound present GI: COMMON NORMALS: Normal to inspection, nondistended, normoactive bowel sounds present, Soft to palpation and non-tender PALPATION: Yes Soft to palpation Extremity: COMMON NORMALS: no joint enlargement GENERAL: Yes edema (1+) Neuro: COMMON NORMALS: patient oriented x3 and moves all extremities SENSORIUM/ORIENTATION: Yes alert Skin: COMMON NORMALS: no rashes or lesions noted GENERAL SKIN EXAM: no rashes or lesions noted Urinary Catheter Management: Elizabeth: Cath Placed During This Visit: yes Reason for Continuing Indwelling Catheter: Accurate Measurement of Urinary Output in Critically Ill Patients Urinary Catheter Date of Insertion: 08/05/22 Urinary Catheter Time of Insertion: 06:15 Data 08/08/22 02:15 08/08/22 13:04 A&P Assessment and plan (1) CHF (congestive heart failure): Started on CRRT. Continue. Monitor I&O. Monitor weights. (2) ANGELLA (acute kidney injury): Currently on CRRT. Follow-up chemistry. Follow-up urine output. (3) NSTEMI (non-ST elevated myocardial infarction): Appreciate cardiology recommendations, documentation reviewed. Continue aspirin, Plavix. Heparin drip for now. (4) Cardiogenic shock: Levophed as needed to maintain (5) Goals of care, counseling/discussion: Continue trial treatment and supportive care, including CRRT Plan Leukocytosis: With some persistence. Pulmonary changes most likely secondary to decompensated CHF, however, with leukocytosis and hypoxia for now empirically continue cefepime and vancomycin. Respiratory viral noted unremarkable. PICC line placed 08/06 Attestations Medical Necessity Statement*: Continue admission for assessment management of decompensated CHF, anuric ANGELLA, status post non-STEMI Coding Level of Care Code Critical Care >/= 30 minutes Critical care time (in minutes): 30 The high probability of a clinically significant, sudden or life threatening deterioration, as referenced in this documentation, required my full and direct attention, intervention and personal management. The critical care time shown is in addition to time spent performing any reported separately billable procedures and includes the following: [x] Data and vital sign review and interpretation [x ] Patient assessment, examination and intervention [x] Medication orders and management [x] Patient/Family updates as able [x] Care Coordination and Documentation. Diagnoses CHF (congestive heart failure) I50.9 ANGELLA (acute kidney injury) N17.9 NSTEMI (non-ST elevated myocardial infarction) I21.4 Cardiogenic shock R57.0 Goals of care, counseling/discussion Z71.89
[2022-08-08 13:29] LABS: Partial Thromboplastin Time 52.7 SECONDS (23.9-36.7)
[2022-08-08 13:39] LABS: Albumin Level 3.2 g/dL (3.5-5.2); Anion Gap 18.9 (5-19); Blood Urea Nitrogen 27 mg/dL (8-23); Calcium 8.2 mg/dL (8.5-10.5); Carbon Dioxide 20 mmol/L (22-29); Chloride 101 mmol/L (98-107); Glucose 105 mg/dL (65-115); Magnesium 2.4 mg/dL (1.7-2.3); Phosphorus 3.6 mg/dL (2.5-4.5); Potassium 4.9 mmol/L (3.5-5.1); Sodium 135 mmol/L (136-145)
[2022-08-08 13:52] LABS: Creatinine Clr Calc Pharmacy 40.6895
[2022-08-08] MEDS: bisacodyl 10 mg Supp PR (14:39)
--- NOTE | 2022-08-08 14:45 | PC.NURSE ---
New Orders Received Called Dr. Degroot and spoke with her regarding CRRT & fluids. Received orders to discontinue CRRT once using last bag of 4K+ 1 Phosphate 2.5 Ca2+, will reassess resuming CRRT after morning labs result.
[2022-08-08] MEDS: heparin drip 25,000 UNIT/500 ML PREMIX 18.44 UNIT IV (18:45)
[2022-08-08 19:44] LABS: Partial Thromboplastin Time 43.3 SECONDS (23.9-36.7)
[2022-08-08 20:13] LABS: Albumin Level 3.6 g/dL (3.5-5.2); Blood Urea Nitrogen 25 mg/dL (8-23); Calcium 8.4 mg/dL (8.5-10.5); Carbon Dioxide 22 mmol/L (22-29); Chloride 100 mmol/L (98-107); Glucose 99 mg/dL (65-115); Magnesium 2.5 mg/dL (1.7-2.3); Phosphorus 4.2 mg/dL (2.5-4.5); Sodium 135 mmol/L (136-145)
[2022-08-08 20:22] LABS: Creatinine Clr Calc Pharmacy 40.6895
[2022-08-08] MEDS: heparin 5,000 unit/mL INJ 1 mL IV (20:36)
[2022-08-08] MEDS: atorvastatin 40 mg Tablet PO (21:08)
[2022-08-09] VITALS (105 sets, daily range): BP systolic 71–127; BP diastolic 40–75; PULSE 59–86; RESP 7–32; TEMP 36.1–36.7; O2SAT 84–100
[2022-08-09] MEDS: [UNRECOGNIZED DRUG - OTHER] 5000 ML CRRT ×5 (00:47→09:00)
[2022-08-09] MEDS: HYDROmorphone 1 mg/mL INJ 1 mL IVP (01:05)
[2022-08-09 02:38] LABS: Albumin Level 3.1 g/dL (3.5-5.2); Anion Gap 18.7 (5-19); Blood Urea Nitrogen 24 mg/dL (8-23); Calcium 8.6 mg/dL (8.5-10.5); Carbon Dioxide 20 mmol/L (22-29); Chloride 100 mmol/L (98-107); Glucose 99 mg/dL (65-115); Magnesium 2.6 mg/dL (1.7-2.3); Phosphorus 4.5 mg/dL (2.5-4.5); Potassium 4.7 mmol/L (3.5-5.1); Sodium 134 mmol/L (136-145)
[2022-08-09 02:39] LABS: Partial Thromboplastin Time 115.8 SECONDS (23.9-36.7)
[2022-08-09 04:40] LABS: Basophils % 0.2 %; Hemoglobin 8.7 g/dL (11.7-16.6); Lymphocytes # 0.9 10^3/uL (0.8-4.8); Lymphocytes % 5.8 %; Mean Corpuscular HGB Conc 31.1 g/dL (30.0-36.0); Mean Corpuscular Hemoglobin 32.2 pg (28.0-34.0); Mean Corpuscular Volume 103.7 fl (80-94); Mean Platelet Volume 11.1 fL (7.4-10.4); Monocytes % 6.2 %; Neutrophils # 13.83 10^3/uL (1.8-7.7); Neutrophils % 86.6 %; Nucleated Red Blood Cells % 0.1 %; Platelet Count 205 10^3/cmm (130-400)
[2022-08-09 05:05] LABS: Alanine Aminotransferase 89 U/L (0-41); Albumin Level 3.5 g/dL (3.5-5.2); Alkaline Phosphatase 75 U/L (40-130); Anion Gap 19.8 (5-19); Aspartate Amino Transferase 72 U/L (0-40); Blood Urea Nitrogen 24 mg/dL (8-23); Calcium 8.6 mg/dL (8.5-10.5); Carbon Dioxide 21 mmol/L (22-29); Chloride 100 mmol/L (98-107); Globulin 2.7 g/dL (1.3-4.6); Glucose 93 mg/dL (65-115); Magnesium 2.6 mg/dL (1.7-2.3); Osmolality Calculated 286 mOsm/kg (285-295); Potassium 4.8 mmol/L (3.5-5.1); Sodium 136 mmol/L (136-145); Total Bilirubin 0.6 mg/dL (0.15-1.2); Total Protein 6.2 g/dL (6.6-8.7)
--- NOTE | 2022-08-09 07:08 | PC.NURSE ---
Confusion Throughout night, patient became increasingly confused and attempting to climb out of bed. Dr. Romero notified; no new orders received.
[2022-08-09 08:11] LABS: Albumin Level 3.4 g/dL (3.5-5.2); Anion Gap 19.9 (5-19); Blood Urea Nitrogen 22 mg/dL (8-23); Calcium 8.6 mg/dL (8.5-10.5); Carbon Dioxide 20 mmol/L (22-29); Chloride 98 mmol/L (98-107); Glucose 98 mg/dL (65-115); Magnesium 2.6 mg/dL (1.7-2.3); Phosphorus 4.4 mg/dL (2.5-4.5); Potassium 4.9 mmol/L (3.5-5.1); Sodium 133 mmol/L (136-145)
[2022-08-09] MEDS: aspirin 81 mg EC Tablet PO (08:18)
[2022-08-09] MEDS: cefepime 1,000 MG in sodium chloride 0.9% (plus) 50 ML 100 MG IV (08:18)
[2022-08-09] MEDS: clopidogrel 75 mg Tablet PO (08:18)
[2022-08-09 08:26] LABS: Blood Gas Allen Test Pos; Blood Gas Sample Site Brachial, left; Blood Gas Sample Type Arterial; Ionized Calcium Level - ABG 1.2 mmol/L (1.1-1.4); Oxygen Device BIPAP
--- NOTE | 2022-08-09 08:33 | XRR_ITS ---
PROCEDURE INFORMATION: Exam: XR Chest Exam date and time: 08/09/2022 7:43 AM Age: 87 years old Clinical indication: Condition or disease; Lung condition and disease; Respiratory failure; Status not specified; Additional info: Resp fail TECHNIQUE: Imaging protocol: Radiologic exam of the chest. Views: 1 view. COMPARISON: CR (CHEST, ) 08/07/2022 4:45 PM FINDINGS: Tubes, catheters and devices: Termination of central venous catheters in the distal superior vena cava. Lungs: COPD, interstitial prominence, and bibasilar airspace disease, with mild interval worsening left basilar airspace disease. Pleural spaces: Questionable small pleural effusions. Heart/Mediastinum: No cardiomegaly. Bypass surgery. Vasculature: Calcification of the thoracic aorta. Bones/joints: Osteopenia and degenerative change. XR/XR chest 1V portable [id number] IMPRESSION: COPD, interstitial prominence, and bibasilar airspace disease, with mild interval worsening left basilar airspace disease.
[2022-08-09] MEDS: bisacodyl 10 mg Supp PR (08:58)
[2022-08-09] MEDS: meropenem 1,000 MG in sodium chloride 0.9% (plus) 50 ML 100 MG IV ×2 (08:59→20:06)
[2022-08-09] MEDS: vancomycin 1,250 MG/250 ML PIGGYBACK 200 MG IV (09:17)
[2022-08-09] MEDS: dexmedetomidine 400 MCG in sodium chloride 0.9% (100 ml) 100 ML IV (09:29)
--- NOTE | 2022-08-09 09:34 | PM.PN ---
Subjective Subjective: Patient is stable. No chest pain. Has shortness of breath. On CRRT Vitals/I&O/Wt Last Vital Signs Temp 97.5 F L 08/09/22 02:00 Pulse 71 08/09/22 08:42 Resp 24 H 08/09/22 08:42 BP 114/57 08/09/22 08:00 Pulse Ox 95 08/09/22 08:42 O2 Del Method Heated High Flow 08/09/22 08:41 O2 Flow Rate 60 08/09/22 08:42 FiO2 100 08/09/22 08:42 08/08/22 08/09/22 08/09/22 22:59 06:59 14:59 Intake Total 195.845 / 694.745 151.9 / 846.645 50 / 50 Output Total 16 / 16 60 / 76 Balance 179.845 / 678.745 91.9 / 770.645 50 / 50 Weight last 48 hrs Weight 162 lb Physical Exam Narrative: GENERAL: Patient is alert, On BiPAP NECK: No jugular vein distension. [] HEENT: No cyanosis. No icterus. No pallor. [] HEART: Regular S1 and S2. ] LUNGS: Diminished air entry CENTRAL NERVOUS SYSTEM: Grossly nonfocal. [] EXTREMITIES: Lower extremities with 1+ edema bilaterally. Urinary Catheter Management: Elizabeth: Cath Placed During This Visit: yes Reason for Continuing Indwelling Catheter: Accurate Measurement of Urinary Output in Critically Ill Patients Urinary Catheter Date of Insertion: 08/05/22 Urinary Catheter Time of Insertion: 06:15 Data 08/10/22 05:20 08/10/22 07:49 A&P Assessment and plan (1) CHF (congestive heart failure): (2) NSTEMI (non-ST elevated myocardial infarction): (3) Cardiogenic shock: Plan Medical therapy for CAD and NSTEMI. On CRRT. Nephrology on board. Continue dual antiplatelet therapy Thank you for involving us with care of this patient. We will continue to follow. Please call with questions Attestations Medical Necessity Statement*: Care expected to cross 2 midnights. Coding Level of Care Code Acute Code for [facility] Diagnoses CHF (congestive heart failure) I50.9 NSTEMI (non-ST elevated myocardial infarction) I21.4 Cardiogenic shock R57.0
[2022-08-09 10:00] LABS: Vancomycin Trough 11.7 ug/mL (10-15)
[2022-08-09] MEDS: PrismaSol BGK 4/2.5 - 5,000 mL Bag 5000 ML CRRT ×7 (11:18→22:17)
[2022-08-09 11:22] LABS: Adenovirus Not Detected (NOT DETECT); Chlamydia Pneumoniae Not Detected (NOT DETECT); Coronavirus 229E,HKU1,NL63,OC4 Not Detected (NOT DETECT); Human Metapneumovirus Not Detected (NOT DETECT); Human Rhinovirus/Enterovirus Not Detected (NOT DETECT); Influenza A Not Detected (NOT DETECT); Influenza A H1 Not Detected (NOT DETECT); Influenza A H1-2009 Not Detected (NOT DETECT); Influenza A H3 Not Detected (NOT DETECT); Influenza B Not Detected (NOT DETECT); Mycoplasma Pneumoniae Not Detected (NOT DETECT); Parainfluenza Virus Type 1 Not Detected (NOT DETECT); Parainfluenza Virus Type 2 Not Detected (NOT DETECT); Parainfluenza Virus Type 3 Not Detected (NOT DETECT); Parainfluenza Virus Type 4 Not Detected (NOT DETECT); Respiratory Syncytial Virus A Not Detected (NOT DETECT); Respiratory Syncytial Virus B Not Detected (NOT DETECT); SARS-COV-2 Not Detected (NOT DETECT)
[2022-08-09] MEDS: sodium chloride 0.9% 1,000 mL Bag CRRT (13:42)
[2022-08-09 14:11] LABS: Albumin Level 3.2 g/dL (3.5-5.2); Anion Gap 15.6 (5-19); Blood Urea Nitrogen 25 mg/dL (8-23); Calcium 7.8 mg/dL (8.5-10.5); Carbon Dioxide 22 mmol/L (22-29); Chloride 103 mmol/L (98-107); Glucose 95 mg/dL (65-115); Magnesium 2.6 mg/dL (1.7-2.3); Phosphorus 3.7 mg/dL (2.5-4.5); Potassium 4.6 mmol/L (3.5-5.1); Sodium 136 mmol/L (136-145)
[2022-08-09 16:25] LABS: ABG PCO2 35.3 mmHg (35-45); ABG PH Result 7.38 (7.35-7.45); Arterial Blood Gas Hematocrit 29.7 % (42-52); Base Excess ABG -3.6 mmol/L (-2.0-2.0); Oxygen Saturation ABG 86.8; PO2 ABG 54.6 mmHg (80.0-100.0); Potassium Level - ABG 4.7 mmol/L (3.5-5.0)
[2022-08-09 16:26] LABS: Alveolar-Arterial Oxygen Gradi 6.7 mmHg (5-10); Carboxyhemoglobin 0.9 %THgb (0.4-20.1); HGB O2 Sat 85.5 % (95-100); Methemoglobin 0.6 % (0.4-1.5); Total Hemoglobin 9.7 g/dL (14-18)
--- NOTE | 2022-08-09 16:26 | P.PN_ITS ---
Subjective Subjective: n CRRT Medications: Reviewed: Yes Vitals/I&O/Wt Last Vital Signs Temp 97.5 F L 08/09/22 02:00 Pulse 65 08/09/22 16:00 Resp 9 L 08/09/22 16:00 BP 109/66 08/09/22 16:00 Pulse Ox 100 08/09/22 16:00 O2 Del Method Heated High Flow 08/09/22 08:41 O2 Flow Rate 60 08/09/22 13:12 FiO2 60 08/09/22 15:06 08/09/22 08/09/22 08/09/22 06:59 14:59 22:59 Intake Total 151.9 / 846.645 514.732 / 514.732 35.433 / 550.165 Output Total 60 / 76 Balance 91.9 / 770.645 514.732 / 514.732 35.433 / 550.165 Weight last 48 hrs Weight 73.482 kg Physical Exam Urinary Catheter Management: Elizabeth: Cath Placed During This Visit: yes Reason for Continuing Indwelling Catheter: Accurate Measurement of Urinary Output in Critically Ill Patients Urinary Catheter Date of Insertion: 08/05/22 Urinary Catheter Time of Insertion: 06:15 Data 08/09/22 04:03 08/09/22 13:48 Micro: Microbiology 08/09/22 13:11 Bacterial Antigens - Final Urine,Clean Catch 08/09/22 13:11 Legionella Urinary Antigen - Final Urine Catheterized A&P Assessment and plan (1) ANGELLA (acute kidney injury): Plan 1. Acute kidney injury: Secondary to shock-cardiogenic, currently on Levophed. Creatinine stable at 1.6, electrolytes stable and nonoliguric. Patient has volume overload with pulmonary edema and requiring BiPAP at 50% FiO2, CRRT started , tolerating well Will continue CRRT for another 24 hours and reassess renal function 2. Coronary artery disease, history of CABG, now presented with NSTEMI, plans per cardiology, 3. Hyponatremia: Mild, monitor 4. Anemia: Hemoglobin 8.1 check iron studies transfuse if hemoglobin less than 7 Patient evaluated using audiovisual cart. Time spent 45 minutes Attestations Medical Necessity Statement*: per medicine Coding Level of Care Code Acute Code for [facility] Diagnoses ANGELLA (acute kidney injury) N17.9
--- NOTE | 2022-08-09 16:26 | PC.NURSE ---
Telenephrology Dr. King rounded, plans to continue CRRT for another 24hours.
[2022-08-09 16:57] LABS: Partial Thromboplastin Time 46.4 SECONDS (23.9-36.7)
--- NOTE | 2022-08-09 18:18 | PC.NURSE ---
Patient remains pleasantly confused. Able to tolerate HHFNC for an hour at a time, then bipap dependant. Family came to visit. Continue CRRT.
[2022-08-09] MEDS: atorvastatin 40 mg Tablet PO (20:13)
[2022-08-09 20:20] LABS: Albumin Level 3.5 g/dL (3.5-5.2); Anion Gap 16.5 (5-19); Blood Urea Nitrogen 23 mg/dL (8-23); Calcium 8.2 mg/dL (8.5-10.5); Carbon Dioxide 23 mmol/L (22-29); Chloride 102 mmol/L (98-107); Glucose 90 mg/dL (65-115); Magnesium 2.6 mg/dL (1.7-2.3); Phosphorus 2.9 mg/dL (2.5-4.5); Potassium 4.5 mmol/L (3.5-5.1); Sodium 137 mmol/L (136-145)
--- NOTE | 2022-08-09 21:23 | P.PN_ITS ---
Subjective Subjective: Today he is feeling a bit tired. This morning feels somewhat anxious. Eagerly anticipating a visit from his family. Medications: Reviewed: Yes Vitals/I&O/Wt Last Vital Signs Temp 96.9 F L 08/09/22 20:00 Pulse 74 08/09/22 20:30 Resp 19 H 08/09/22 20:30 BP 111/66 08/09/22 20:30 Pulse Ox 100 08/09/22 20:30 O2 Del Method BiPAP 08/09/22 20:00 O2 Flow Rate 60 08/09/22 13:12 FiO2 55 08/09/22 20:00 08/09/22 08/09/22 08/09/22 06:59 14:59 22:59 Intake Total 151.9 / 846.645 514.732 / 514.732 372.967 / 887.699 Output Total 60 / 76 Balance 91.9 / 770.645 514.732 / 514.732 372.967 / 887.699 Weight last 48 hrs Weight 73.482 kg Physical Exam Const: COMMON NORMALS: patient oriented x3 and alert GENERAL APPEARANCE: cooperative and frail appearing ORIENTATION/CONSCIOUSNESS: Yes awake HENMT: COMMON NORMALS: oropharynx normal OTHER: Heated high flow cannula Neck/C-Spine: COMMON NORMALS: no JVD Resp: COMMON NORMALS: normal respiratory effort and clear to auscultation bilaterally AUSCULTATION: clear to auscultation bilaterally and diminished lung sounds Cardio: COMMON NORMALS: no JVD, regular rhythm, S1 normal heart sound present, S2 normal heart sound present and No murmurs present (Cardio) RHYTHM: regular rhythm HEART SOUNDS: S1 normal heart sound present and S2 normal heart sound present GI: COMMON NORMALS: Normal to inspection, nondistended, normoactive bowel sounds present, Soft to palpation and non-tender PALPATION: Yes Soft to palpation Extremity: COMMON NORMALS: no joint enlargement and no pedal edema GENERAL: Yes edema (1+) Neuro: COMMON NORMALS: patient oriented x3 and moves all extremities SENSORIUM/ORIENTATION: Yes alert Skin: COMMON NORMALS: no rashes or lesions noted GENERAL SKIN EXAM: no rashes or lesions noted Urinary Catheter Management: Elizabeth: Cath Placed During This Visit: yes Reason for Continuing Indwelling Catheter: Accurate Measurement of Urinary Outpu t in Critically Ill Patients Urinary Catheter Date of Insertion: 08/05/22 Urinary Catheter Time of Insertion: 06:15 Data 08/09/22 04:03 08/09/22 19:49 Micro: Microbiology 08/09/22 13:11 Bacterial Antigens - Final Urine,Clean Catch 08/09/22 13:11 Legionella Urinary Antigen - Final Urine Catheterized A&P Assessment and plan (1) Respiratory failure: This morning feeling anxious, tachypneic. Started on Precedex, added also low- dose Ativan as needed. With improvement. Transitioned to heated high flow. Chest x-ray. With noted interstitial prominence, bibasilar airspace disease, mild interval worsening left basilar airspace disease. Antibiotic adjusted, changed from cefepime in case also causing him some toxic encephalopathy, empirically switched to meropenem. Continue vancomycin. Suspicion of pneumonia is lower, but cannot exclude at this time. He does have low bit of phlegm. Additionally continues on CRRT for decompensated CHF. (2) CHF (congestive heart failure): Continues on CRRT, tolerating well this morning, blood pressure softer this afternoon and had to restart on Levophed. Discussed with nephrology this morning, plans for continuation today, reassessment again tomorrow if able to discontinue. Monitor I&O. Monitor weights. Discussed with cardiology. (3) ANGELLA (acute kidney injury): Continues on CRRT, tolerating well this morning, blood pressure softer this afternoon and had to restart on Levophed. Discussed with nephrology this morning, plans for continuation today, reassessment again tomorrow if able to discontinue. Follow-up chemistry. Follow-up urine output. (4) NSTEMI (non-ST elevated myocardial infarction): Appreciate cardiology recommendations, documentation reviewed. Continue aspirin, Plavix. Heparin drip for now. (5) Cardiogenic shock: Levophed as needed to maintain (6) Goals of care, counseling/discussion: Continue trial treatment and supportive care, including CRRT Plan Leukocytosis: With some persistence. Pulmonary changes most likely secondary to decompensated CHF, however, with leukocytosis and hypoxia for now empirically continue cefepime and vancomycin. Respiratory viral noted unremarkable. Repeat chest x-ray, possibly some worsening of left basilar airspace disease. More an xious today. WAntibiotic adjusted, changed from cefepime to meropenem. Continue vancomycin. PICC line placed 08/06 Attestations Medical Necessity Statement*: Admission for the management of respiratory failure, decompensated CHF, possible pneumonia, NSTEMI, anuric ANGELLA, gentleman with underlying CAD of advanced age. Coding Level of Care Code Critical Care >/= 30 minutes Critical care time (in minutes): 40 The high probability of a clinically significant, sudden or life threatening deterioration, as referenced in this documentation, required my full and direct attention, intervention and personal management. The critical care time shown is in addition to time spent performing any reported separately billable procedures and includes the following: [x] Data and vital sign review and interpretation [x ] Patient assessment, examination and intervention [x] Medication orders and management [x] Patient/Family updates as able [x] Care Coordination and Documentation. Diagnoses Respiratory failure J96.90 CHF (congestive heart failure) I50.9 ANGELLA (acute kidney injury) N17.9 NSTEMI (non-ST elevated myocardial infarction) I21.4 Cardiogenic shock R57.0 Goals of care, counseling/discussion Z71.89
[2022-08-09 23:11] LABS: Partial Thromboplastin Time 47.1 SECONDS (23.9-36.7)
[2022-08-09] MEDS: heparin 5,000 unit/mL INJ 1 mL IV (23:48)
[2022-08-10] VITALS (105 sets, daily range): BP systolic 73–133; BP diastolic 42–86; PULSE 64–87; RESP 10–36; TEMP 36–37.2; O2SAT 87–100
[2022-08-10] MEDS: heparin drip 25,000 UNIT/500 ML PREMIX 19 UNIT IV (01:23)
[2022-08-10] MEDS: LORazepam 2 mg/mL INJ 1 mL 0.25 MG IVP (02:38)
[2022-08-10 03:09] LABS: Albumin Level 3.3 g/dL (3.5-5.2); Anion Gap 14.5 (5-19); Blood Urea Nitrogen 23 mg/dL (8-23); Calcium 8.7 mg/dL (8.5-10.5); Carbon Dioxide 25 mmol/L (22-29); Chloride 101 mmol/L (98-107); Glucose 93 mg/dL (65-115); Magnesium 2.7 mg/dL (1.7-2.3); Phosphorus 2.3 mg/dL (2.5-4.5); Potassium 4.5 mmol/L (3.5-5.1); Sodium 136 mmol/L (136-145)
[2022-08-10] MEDS: PrismaSol BGK 4/2.5 - 5,000 mL Bag 5000 ML CRRT ×5 (03:31→08:52)
[2022-08-10 05:34] LABS: Basophils % 0.1 %; Eosinophils % 0.1 %; Hematocrit 28.1 % (42.0-52.0); Lymphocytes % 6.3 %; Mean Corpuscular Hemoglobin 32.7 pg (28.0-34.0); Mean Corpuscular Volume 102.2 fl (80-94); Mean Platelet Volume 10.6 fL (7.4-10.4); Monocytes # 1.3 10^3/uL (0.2-0.9); Neutrophils # 13.33 10^3/uL (1.8-7.7); Neutrophils % 84.4 %; Nucleated Red Blood Cells % 0.1 %; Platelet Count 213 10^3/cmm (130-400); Red Blood Count 2.75 10^6/uL (4.1-5.3); White Blood Count 15.8 10^3/uL (4.0-10.0)
[2022-08-10 05:48] LABS: Partial Thromboplastin Time 52.1 SECONDS (23.9-36.7)
[2022-08-10] MEDS: heparin 5,000 unit/mL INJ 1 mL IV ×2 (06:04→20:37)
[2022-08-10 08:14] LABS: Albumin Level 3.3 g/dL (3.5-5.2); Blood Urea Nitrogen 18 mg/dL (8-23); Calcium 8.7 mg/dL (8.5-10.5); Carbon Dioxide 25 mmol/L (22-29); Chloride 101 mmol/L (98-107); Glucose 94 mg/dL (65-115); Magnesium 2.7 mg/dL (1.7-2.3); Phosphorus 2.1 mg/dL (2.5-4.5); Sodium 136 mmol/L (136-145)
[2022-08-10 08:15] LABS: Anion Gap 14.7 (5-19); Potassium 4.7 mmol/L (3.5-5.1)
[2022-08-10] MEDS: meropenem 1,000 MG in sodium chloride 0.9% (plus) 50 ML 100 MG IV ×2 (09:11→20:00)
[2022-08-10] MEDS: clopidogrel 75 mg Tablet PO (09:24)
[2022-08-10] MEDS: aspirin 81 mg EC Tablet PO (09:24)
[2022-08-10] MEDS: polyethylene glycol 3350 Pkt 17 gm PO ×2 (09:26→17:04)
[2022-08-10 10:02] LABS: Thyroid Stimulating Hormone 15.74 uIU/mL (0.27-4.20)
--- NOTE | 2022-08-10 10:52 | PC.SOCIAL ---
Imm update Imm updated with patient at bedside. Copy of page 2 provided. Patient verbalized understanding. Copy in chart initialed, dated and timed.
[2022-08-10] MEDS: vancomycin 1,250 MG/250 ML PIGGYBACK 200 MG IV (11:00)
--- NOTE | 2022-08-10 11:04 | P.PN_ITS ---
Subjective Subjective: Patient denies chest pain Vitals/I&O/Wt Last Vital Signs Temp 98.9 F 08/10/22 07:15 Pulse 81 08/10/22 10:00 Resp 24 H 08/10/22 10:00 BP 100/55 08/10/22 10:00 Pulse Ox 100 08/10/22 10:00 O2 Del Method BiPAP 08/10/22 09:15 O2 Flow Rate 60 08/10/22 09:14 FiO2 60 08/10/22 09:15 08/09/22 08/10/22 08/10/22 22:59 06:59 14:59 Intake Total 514.967 / 1029.699 302.375 / 1332.074 50 / 50 Output Total 34 / 56 Balance 492.967 / 1007.699 268.375 / 1276.074 50 / 50 Physical Exam Narrative: GENERAL: Patient is alert, On BiPAP NECK: No jugular vein distension. [] HEENT: No cyanosis. No icterus. No pallor. [] HEART: Regular S1 and S2. ] LUNGS: Diminished air entry CENTRAL NERVOUS SYSTEM: Grossly nonfocal. [] EXTREMITIES: Lower extremities with 1+ edema bilaterally. Urinary Catheter Management: Elizabeth: Cath Placed During This Visit: yes Reason for Continuing Indwelling Catheter: Accurate Measurement of Urinary Output in Critically Ill Patients Urinary Catheter Date of Insertion: 08/05/22 Urinary Catheter Time of Insertion: 06:15 Data 08/11/22 02:46 08/11/22 15:40 Micro: Microbiology 08/09/22 13:11 Bacterial Antigens - Final Urine,Clean Catch 08/09/22 13:11 Legionella Urinary Antigen - Final Urine Catheterized A&P Assessment and plan (1) CHF (congestive heart failure): (2) NSTEMI (non-ST elevated myocardial infarction): (3) Cardiogenic shock: Plan Continue dual antiplatelet therapy. Monitor renal function. As needed Levophed. Ambulate with patient as possible. We will repeat limited echocardiogram tomorrow. Thank you for involving us with care of this patient. We will continue to follow. Please call with questions Attestations Medical Necessity Statement*: Care expected to cross 2 midnights. Coding Level of Care Code Acute Code for [facility] Diagnoses CHF (congestive heart failure) I50.9 NSTEMI (non-ST elevated myocardial infarction) I21.4 Cardiogenic shock R57.0
--- NOTE | 2022-08-10 13:29 | PM.PN ---
Subjective Subjective: on crrt Medications: Reviewed: Yes Vitals/I&O/Wt Last Vital Signs Temp 96.8 F L 08/10/22 12:15 Pulse 77 08/10/22 12:15 Resp 24 H 08/10/22 12:15 BP 98/62 08/10/22 12:15 Pulse Ox 93 08/10/22 12:15 O2 Del Method BiPAP 08/10/22 12:15 O2 Flow Rate 60 08/10/22 09:14 FiO2 60 08/10/22 12:15 08/09/22 08/10/22 08/10/22 22:59 06:59 14:59 Intake Total 514.967 / 1029.699 302.375 / 1332.074 183.667 / 183.667 Output Total 34 / 56 Balance 492.967 / 1007.699 268.375 / 1276.074 183.667 / 183.667 Physical Exam Urinary Catheter Management: Elizabeth: Cath Placed During This Visit: yes Reason for Continuing Indwelling Catheter: Accurate Measurement of Urinary Output in Critically Ill Patients Urinary Catheter Date of Insertion: 08/05/22 Urinary Catheter Time of Insertion: 06:15 Data 08/10/22 05:20 08/10/22 07:49 Micro: Microbiology 08/09/22 13:11 Bacterial Antigens - Final Urine,Clean Catch 08/09/22 13:11 Legionella Urinary Antigen - Final Urine Catheterized A&P Assessment and plan (1) ANGELLA (acute kidney injury): Plan 1. Acute kidney injury: Secondary to shock-cardiogenic, currently on Levophed. Creatinine stable at 1.6, electrolytes stable and nonoliguric. Patient has volume overload with pulmonary edema and requiring BiPAP at 60% FiO2, CRRT started , tolerated well and 6.2 L net nagative balance Will hold CRRT and assess his UOP and O2 requirement despite aggressive UF no improvement in Resp Status so far 2. Coronary artery disease, history of CABG, now presented with NSTEMI, plans per cardiology, 3. Hyponatremia: Mild, monitor 4. Anemia: Hemoglobin 8.1 check iron studies transfuse if hemoglobin less than 7 Patient evaluated using audiovisual cart. Time spent 45 minutes Attestations Medical Necessity Statement*: per medicine Coding Level of Care Code Acute Code for [facility] Diagnoses ANGELLA (acute kidney injury) N17.9
[2022-08-10] MEDS: heparin drip 25,000 UNIT/500 ML PREMIX 21 UNIT IV (14:00)
--- NOTE | 2022-08-10 14:02 | PC.NURSE ---
Addendum entered by Nilesh Carroll RN 08/10/22 14:05: Per Dr Helm, CRRT has been discontinued. Blood returned to patient. Dialysis catheter lines flushed with heparin. Pablo will reassess tomorrow and determine if CRRT needs to be started again. Net fluid balance during CRRT has been -6274 mL. Original Note: Per Dr Helm, CRRT has been discontinued. SHe will reassess tomorrow and determine if it needs to be started again. Net fluid balance during CRRT has been -6274 mL.
--- NOTE | 2022-08-10 14:57 | CTR_ITS ---
PROCEDURE INFORMATION: Exam: CT Chest Without Contrast; Diagnostic Exam date and time: 08/10/2022 4:05 PM Age: 87 years old Clinical indication: Fever; Prior surgery; Surgery date: 6+ months; Surgery type: Cabg, valve placement, penile pump; Additional info: Persistent leukocytosis, hypoxia, cardiogenic shock TECHNIQUE: Imaging protocol: Diagnostic computed tomography of the chest without contrast. Radiation optimization: All CT scans at this facility use at least one of these dose optimization techniques: automated exposure control; mA and/or kV adjustment per patient size (includes targeted exams where dose is matched to clinical indication); or iterative reconstruction. REPORTING DATA: Count of CT and Cardiac NM exams in prior 12 months: This patient has received 0 known CTs and 0 known cardiac nuclear medicine studies in the 12 months prior to the current study. COMPARISON: CR XR chest 1V portable [id number] 08/09/2022 7:43 AM RADIATION DOSE METRICS: Total DLP (mGy-cm): 786.6 FINDINGS: Tubes, catheters and devices: Right-sided central line terminating within the SVC. Additional PICC line also terminating in the SVC. Lungs: Moderate sized bilateral pleural effusions with adjacent passive atelectasis of the lower lung zones. Thickened interlobular septa anteriorly upper lung zones that may be secondary to CHF. Pleural spaces: See Lungs finding. Heart: Heart is mildly enlarged. Extensive calcification of coronary arteries. No significant pericardial effusion. Lymph nodes: Unremarkable. No enlarged lymph nodes. Vasculature: Diffuse atherosclerotic changes with extensive calcification of the aortic wall. No aortic aneurysm. Bones/joints: Evidence of prior median sternotomy. No acute bony abnormalities. Soft tissues: Unremarkable. PROCEDURE INFORMATION: Exam: CT Abdomen And Pelvis Without Contrast Exam date and time: 08/10/2022 4:05 PM Age: 87 years old Clinical indication: Fever; Prior surgery; Surgery date: 6+ months; Surgery type: Cabg, valve placement, penile pump; Additional info: Persistent leukocytosis, hypoxia, cardiogenic shock TECHNIQUE: Imaging protocol: Computed tomography of the abdomen and pelvis without contrast. Radiation optimization: All CT scans at this facility use at least one of these dose optimization techniques: automated exposure control; mA and/or kV adjustment per patient size (includes targeted exams where dose is matched to clinical indication); or iterative reconstruction. REPORTING DATA: Count of CT and Cardiac NM exams in prior 12 months: This patient has received 0 known CTs and 0 known cardiac nuclear medicine studies in the 12 months prior to the current study. COMPARISON: US renal BI with PV bladder 08/07/2022 10:53 AM RADIATION DOSE METRICS: Total DLP (mGy-cm): 786.6 FINDINGS: Tubes, catheters and devices: Penile implant present with calcified reservoir within the left lower anterior pelvis. Lungs: Lung bases are clear. Liver: Normal. No mass. Gallbladder and bile ducts: Gallbladder has been removed. Bile ducts are not appreciably dilated. Pancreas: Normal. No ductal dilation. Spleen: Normal. No splenomegaly. Adrenal glands: Normal. No mass. Kidneys and ureters: Tiny nonobstructing right renal stone. Small cortical cysts both kidneys. Stomach and bowel: Scattered diverticuli large bowel without evidence of diverticulitis. Appendix: No evidence of appendicitis. Intraperitoneal space: Unremarkable. No free air. No significant fluid collection. Vasculature: Diffuse atherosclerotic changes of the abdominal aorta and iliac vessels. Evidence of aortoiliac graft. Lymph nodes: Unremarkable. No enlarged lymph nodes. Urinary bladder: There is a Elizabeth catheter balloon within the urinary bladder which is collapsed and difficult to further assess. Reproductive: Prostate gland is mildly enlarged. Bones/joints: Unremarkable. No acute fracture. Soft tissues: Mild generalized in the anasarca in the soft tissues likely due to volume overload. Mild postop changes within the lower abdominal wall. CT/[place] [id number] IMPRESSION: 1. Mild cardiomegaly with moderate bibasilar pleural effusions and adjacent lower lobe atelectasis. 2. Extensive calcification of the coronary arteries and thoracic aorta. IMPRESSION: 1. No acute findings within the abdomen or pelvis. 2. Negative for abscess collection or evidence of inflammatory process in the abdomen and pelvis. 3. Additional chronic findings as above. COMMENTS: Consistent with the [employer]'s Incidental Findings Committee white paper (J Am Kellee Radiol 2018): Any incidental renal lesion less than 1 cm or classified as too small to characterize, or any incidental cystic renal lesion characterized as simple-appearing, is likely benign. No follow-up imaging is recommended for these lesions per consensus recommendations based on imaging criteria.
--- NOTE | 2022-08-10 15:04 | P.PN_ITS ---
Subjective Subjective: Last night he became anxious, received Ativan, however, after that was lethargic and had to be restarted on BiPAP. This morning he is somewhat somnolent, opens his eyes temporarily, tells me he is not in pain, I cannot really get much more information from him. Medications: Reviewed: Yes Vitals/I&O/Wt Last Vital Signs Temp 96.8 F L 08/10/22 12:15 Pulse 70 08/10/22 14:00 Resp 11 L 08/10/22 14:00 BP 88/50 08/10/22 14:00 Pulse Ox 97 08/10/22 14:00 O2 Del Method Heated High Flow 08/10/22 14:00 O2 Flow Rate 60 08/10/22 14:00 FiO2 80 08/10/22 14:00 08/10/22 08/10/22 08/10/22 06:59 14:59 22:59 Intake Total 302.375 / 1332.074 433.667 / 433.667 Output Total 34 / 56 Balance 268.375 / 1276.074 433.667 / 433.667 Physical Exam 2 Narrative: On revisit son at bedside. Const: GENERAL APPEARANCE: cooperative, lethargic and frail appearing ORIENTATION/CONSCIOUSNESS: Yes lethargic HENMT: COMMON NORMALS: oropharynx normal OTHER: BiPAP in the morning, on revisit heated high flow cannula Neck/C-Spine: COMMON NORMALS: no JVD Resp: COMMON NORMALS: normal respiratory effort and clear to auscultation bilaterally AUSCULTATION: clear to auscultation bilaterally and diminished lung sounds bilateral in the lower lung bustillo Cardio: COMMON NORMALS: no JVD, regular rhythm, S1 normal heart sound present, S2 normal heart sound present and No murmurs present (Cardio) RHYTHM: regular rhythm HEART SOUNDS: S1 normal heart sound present and S2 normal heart sound present GI: COMMON NORMALS: Normal to inspection, nondistended, normoactive bowel sounds present, Soft to palpation and non-tender PALPATION: Yes Soft to palpation Extremity: COMMON NORMALS: no joint enlargement and no pedal edema Neuro: COMMON NORMALS: moves all extremities SENSORIUM/ORIENTATION: Yes lethargic Skin: COMMON NORMALS: no rashes or lesions noted GENERAL SKIN EXAM: no rashes or lesions noted Urinary Catheter Management: Elizabeth: Cath Placed During This Visit: yes Reason for Continuing Indwelling Catheter: Accurate Measurement of Urinary Output in Critically Ill Patients Urinary Catheter Date of Insertion: 08/05/22 Urinary Catheter Time of Insertion: 06:15 Data 08/10/22 05:20 08/10/22 07:49 Micro: Microbiology 08/09/22 13:11 Bacterial Antigens - Final Urine,Clean Catch 08/09/22 13:11 Legionella Urinary Antigen - Final Urine Catheterized A&P Assessment and plan (1) Respiratory failure: Overnight had to be placed on BiPAP although sounds like it was more due to a 30 after Ativan after being anxious last night. This morning we B but lethargic. Switched over to high flow. Currently 60% FiO2, saturation is 100%, discussed with RT we will try to taper off oxygen, try to target saturation 88% as he does appear to also have emphysema/likely undiagnosed COPD. He did well tolerating CRRT. Removal of about 6-1/4 L. Still hypoxia persisting. Does have cardiomyopathy and does appear to have low output failure with soft blood pressure, multiorgan injury with ANGELLA, some transaminitis, also some changes in mental status. However, discussed also with his son as unclear cause of leukocytosis. Some of this could be secondary to hypoperfusion, possibly hypoperfusion of the gut, but difficult to confirm. He has not had abdominal tenderness. Did have some constipation/distention, but had a bowel movement last night. We discussed additional steps with additional evaluation with Fungitell, galactomannan, and starting empiric antifungal. Additionally discussed assessment by CT chest abdomen pelvis. Discussed consideration evaluation at higher level care facility. Currently CRRT is stopped, pending reassessment of renal function, urine output. (2) Leukocytosis: As above, not clear because of leukocytosis, possibly hypoperfusion secondary to low output failure, recommend as discussed cannot exclude possibility of pneumonia or other infection. Additional evaluation with CT chest abdomen pelvis. Continue empiric broad- spectrum antibiotics, added antifungal. Additionally requested Fungitell, galactomannan. Follow-up repeat blood cultures. (3) Encephalopathy: Encephalopathy possibly cardiac in nature, low output cardiac failure, possibly metabolic with respiratory failure, or possibly another cause. This morning lethargic additionally probably from receiving benzodiazepine yesterday as well, although it was rather small dose. Additional imaging assessment as above. (4) CHF (congestive heart failure): For now CRRT stopped, pending reassessment of renal function, urine output. About 6-1/4 L removed with CRRT. Concern for low output failure with persistently soft blood pressures, AMS, multiorgan injury with ANGELLA, some transaminitis. Additional work-up as above. In the meantime Levophed support to maintain MAP. Cardiology and nephrology document patient reviewed. Monitor I&O. Monitor weights. (5) ANGELLA (acute kidney injury): CRRT stopped for now, pending reassessment. Monitor I&O. Continues on CRRT, tolerating well this morning, blood pressure softer this afternoon and had to restart on Levophed. Discussed with nephrology this morning, plans for continuation today, reasse ssment again tomorrow if able to discontinue. Follow-up chemistry. Follow-up urine output. (6) NSTEMI (non-ST elevated myocardial infarction): Appreciate cardiology recommendations, documentation reviewed. Continue aspirin, Plavix. Heparin drip for now. (7) Cardiogenic shock: Levophed as needed to maintain (8) Goals of care, counseling/discussion: Continue trial treatment and supportive care, including CRRT Further discussed with family plans for additional work-up, reassess over the next couple of days response to treatments and with further information additional discussion to take place with consideration of further goals of care. Plan PICC line placed 6/2 Attestations Medical Necessity Statement*: Continue admission for assessment management of respiratory failure, no further cardiac failure, multiorgan injury, further assessment of leukocytosis and additional conditions. Coding Level of Care Code Critical Care >/= 30 minutes Critical care time (in minutes): 35 The high probability of a clinically significant, sudden or life threatening deterioration, as referenced in this documentation, required my full and direct attention, intervention and personal management. The critical care time shown is in addition to time spent performing any reported separately billable procedures and includes the following: [x] Data and vital sign review and interpretation [x ] Patient assessment, examination and intervention [x] Medication orders and management [x] Patient/Family updates as able [x] Care Coordination and Documentation. Diagnoses Respiratory failure J96.90 Leukocytosis D72.829 Encephalopathy G93.40 CHF (congestive heart failure) I50.9 ANGELLA (acute kidney injury) N17.9 NSTEMI (non-ST elevated myocardial infarction) I21.4 Cardiogenic shock R57.0 Goals of care, counseling/discussion Z71.89
[2022-08-10 16:31] LABS: Cortisol Random 26.47 ug/dL (2.47-19.5)
--- NOTE | 2022-08-10 17:40 | PC.NURSE ---
SHift SUmmary: Uneventful shift Patient. Rested in bed throughout the day. CRRT was discontinued at 1300 and july e restarted tommorow. Patient has had a variable mental status ranging from alert to difficult to arouse. He has been confused throughout the shift but easily reoriented. Net fluid balance from CRRT session has been -6274 mL. Patient has had very little to eat today, about 150mL of an ensure drink. OFten times his mental status does not allow him to drink, when he is alert enough to eat he states he gets out of breath and fatigued by eating so he only drinks small amounts. Has been on and off of bipap and HHF throughout the day, but more time spent on the high flow, currently on 50L, 65%.
[2022-08-10] MEDS: atorvastatin 40 mg Tablet PO (20:00)
[2022-08-10 20:10] LABS: Partial Thromboplastin Time 52.5 SECONDS (23.9-36.7)
[2022-08-11] VITALS (107 sets, daily range): BP systolic 76–119; BP diastolic 40–81; PULSE 60–123; RESP 12–40; TEMP 36.6–37.7; O2SAT 85–100
[2022-08-11 03:07] LABS: Basophils % 0.1 %; Eosinophils % 0.2 %; Hematocrit 25.8 % (42.0-52.0); Hemoglobin 8.3 g/dL (11.7-16.6); Lymphocytes # 1.2 10^3/uL (0.8-4.8); Lymphocytes % 8.5 %; Mean Corpuscular HGB Conc 32.2 g/dL (30.0-36.0); Mean Corpuscular Hemoglobin 33.1 pg (28.0-34.0); Mean Corpuscular Volume 102.8 fl (80-94); Mean Platelet Volume 10.7 fL (7.4-10.4); Monocytes # 1.3 10^3/uL (0.2-0.9); Monocytes % 9.6 %; Neutrophils # 10.91 10^3/uL (1.8-7.7); Neutrophils % 80.5 %; Nucleated Red Blood Cells % 0.1 %; Platelet Count 186 10^3/cmm (130-400); Red Blood Count 2.51 10^6/uL (4.1-5.3); White Blood Count 13.6 10^3/uL (4.0-10.0)
[2022-08-11 03:23] LABS: Partial Thromboplastin Time 73.5 SECONDS (23.9-36.7)
[2022-08-11 03:28] LABS: Alanine Aminotransferase 68 U/L (0-41); Alkaline Phosphatase 76 U/L (40-130); Anion Gap 16.5 (5-19); Aspartate Amino Transferase 39 U/L (0-40); Blood Urea Nitrogen 34 mg/dL (8-23); Calcium 8.5 mg/dL (8.5-10.5); Carbon Dioxide 22 mmol/L (22-29); Chloride 103 mmol/L (98-107); Globulin 2.7 g/dL (1.3-4.6); Glucose 85 mg/dL (65-115); Magnesium 2.7 mg/dL (1.7-2.3); Osmolality Calculated 291 mOsm/kg (285-295); Phosphorus 2.2 mg/dL (2.5-4.5); Potassium 4.5 mmol/L (3.5-5.1); Sodium 137 mmol/L (136-145); Total Bilirubin 0.6 mg/dL (0.15-1.2); Total Protein 5.7 g/dL (6.6-8.7)
[2022-08-11] MEDS: meropenem 1,000 MG in sodium chloride 0.9% (plus) 50 ML 100 MG IV ×2 (08:42→20:26)
[2022-08-11] MEDS: clopidogrel 75 mg Tablet PO (08:42)
[2022-08-11] MEDS: aspirin 81 mg EC Tablet PO (08:42)
[2022-08-11] MEDS: polyethylene glycol 3350 Pkt 17 gm PO (08:45)
[2022-08-11] MEDS: vancomycin 1,250 MG/250 ML PIGGYBACK 200 MG IV (10:53)
[2022-08-11 11:06] LABS: Partial Thromboplastin Time 66.4 SECONDS (23.9-36.7)
[2022-08-11 11:34] LABS: T4 Total 5.1 mcg/dL (4.9-10.5)
--- NOTE | 2022-08-11 11:42 | PC.NURSE ---
NUrse has alerted Dr butler to increaseing levophed requirements. Start this morning at 2mcg. Now on 12. Other vitals within normal limits. patient does not appear to be in distress. No new orders received. Will continue to monitor.
--- NOTE | 2022-08-11 13:10 | ECG_ITS ---
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 Measurements Intervals [place] Rate: 66 P: -14 AL: 140 QRS: -53 QRSD: 138 T: 123 QT: 411 QTc: 433 Interpretive Statements SINUS RHYTHM WITH FREQUENT VENTRICULAR PREMATURE COMPLEXES INTRAVENTRICULAR CONDUCTION DELAY [130+ ms QRS DURATION] SEPTAL MYOCARDIAL INFARCTION , OF INDETERMINATE AGE [40+ ms Q WAVE IN V1/V2] Compared to ECG 08/05/2022 13:08:13 Ventricular premature complex(es) now present Intraventricular conduction delay now present Myocardial infarct finding now present Left-axis deviation no longer present ST (T wave) deviation no longer present Electronically Signed On 08-11-2022 18:20:23 CDT by Benigno Geller M.D. [id number]
--- NOTE | 2022-08-11 13:29 | USCV_ITS ---
Donny Marshall Age: 87 Gender: M : 1935 Exam Date: 08/11/2022 14:11 Ordering Phys: Benigno Geller M.D ([email or web address]) Technologist: DEMOND [place] [facility] [place]: INCREASE PRESSOR REQUIRMENTS, RYTHM CHANGES BP: 82 / 50 HR: 75 Rhythm: Sinus Technical Quality: Suboptimal MEASUREMENTS (Male / Female) Normal Values 2D ECHO LV Ejection Fraction MOD 2C 42.4 % LV Ejection Fraction 2C AL 42.6 % LA Width 3.3 cm LA Height 4.5 cm RA Width 2.5 cm RA Height 4.0 cm IVC Diameter 1.5 cm DOPPLER Right Atrial Pressure 3.0 mmHg FINDINGS Left Ventricle Right Ventricle Right Atrium Left Atrium Mitral Valve Aortic Valve Tricuspid Valve Pulmonic Valve Pericardium Aorta IVC CONCLUSIONS Technically very quality echocardiogram because of poor ultrasonic windows Grossly LV systolic function is severely reduced. Regional wall motion normalities cannot be assessed because of poor visualization. Benigno Geller MD (Electronically Signed) Final Date: 12 August 2022 18:20 S
--- NOTE | 2022-08-11 13:40 | PC.NURSE ---
Patient has developed more frequent PVCs and levophed is now at 16. NUrse alerted Dr love to rhythm changes and increased levophed requirements. REceived orders for an EKG and to report results to Dr Geller. NUrse compelted EKG, shows SR with frequent PVCs. Alerted Dr Geller to the above findings. REceived orders to draw a MAG level, BMP, and a limited Echocardiogram with contrast to assess Ejection Fraction.
[2022-08-11 14:06] LABS: Partial Thromboplastin Time 62.2 SECONDS (23.9-36.7)
[2022-08-11 14:45] LABS: Glucose Point of Care 175 mg/dL (70-110)
[2022-08-11] MEDS: perflutren protein-a microsphr 0.22 mg/mL SDV 3 mL IV (14:49)
--- NOTE | 2022-08-11 14:55 | PM.PN ---
Subjective Subjective: more awake today Medications: Reviewed: Yes Vitals/I&O/Wt Last Vital Signs Temp 98.2 F 08/11/22 13:15 Pulse 77 08/11/22 14:27 Resp 22 H 08/11/22 14:27 BP 111/59 08/11/22 14:15 Pulse Ox 91 08/11/22 14:27 O2 Del Method High Flow Nasal Cannula 08/11/22 13:15 O2 Flow Rate 50 08/11/22 14:27 FiO2 69 08/11/22 14:27 08/10/22 08/11/22 08/11/22 22:59 06:59 14:59 Intake Total 907.728 / 1371.455 260.000 / 1036.085 7343.914 / 1123.914 Output Total 75 / 105 100 / 100 Balance 877.728 / 1341.455 185.000 / 8340.676 7898.914 / 1023.914 Physical Exam Narrative: awake , alert on high flow o2 s1 s2 rrr per report no edema Urinary Catheter Management: Elizabeth: Cath Placed During This Visit: yes Reason for Continuing Indwelling Catheter: Accurate Measurement of Urinary Output in Critically Ill Patients Urinary Catheter Date of Insertion: 08/05/22 Urinary Catheter Time of Insertion: 06:15 Data 08/11/22 02:46 08/11/22 02:46 A&P Assessment and plan (1) ANGELLA (acute kidney injury): Plan 1. Acute kidney injury: Secondary to shock-cardiogenic, currently on Levophed. Creatinine stable at 1.6, electrolytes stable and nonoliguric. Patient has volume overload with pulmonary edema and was on CRRT - tolerated well and 6.2 L net nagative balance Will hold CRRT and assess his UOP and O2 requirement - continue to monitor off CRRT 2. Coronary artery disease, history of CABG, now presented with NSTEMI, plans per cardiology, 3. Hyponatremia: Mild, monitor 4. Anemia: Hemoglobin 8.1 check iron studies transfuse if hemoglobin less than 7 Patient evaluated using audiovisual cart. Time spent 45 minutes Attestations Medical Necessity Statement*: per medicine Coding Level of Care Code Acute Code for [facility] Fwd Diagnoses ANGELLA (acute kidney injury) N17.9
--- NOTE | 2022-08-11 15:18 | PC.PHAR ---
PHARMACY TO DOSE - VANCOMYCIN With the patient's decline in renal function, we calculated the new dose of vancomycin at 1250mg every 48 hours. This extends the current regimen from every 24 hours where the trough was drawn at 11.7 on 08/09. With this updated frequency, this should give a predicted peak of 34.6 mcg/ml and a trough of 10.69 mcg/ml. Pharmacy will continue to monitor this patient's renal and trough values, making adjustments as necessary. Please let us know if there is anything else we can do in the care of this patient. Thanks, Henry Muniz, Pharm.D.
[2022-08-11 16:10] LABS: Anion Gap 19.4 (5-19); Blood Urea Nitrogen 43 mg/dL (8-23); Calcium 9.1 mg/dL (8.5-10.5); Carbon Dioxide 21 mmol/L (22-29); Chloride 97 mmol/L (98-107); Glucose 129 mg/dL (65-115); Magnesium 2.6 mg/dL (1.7-2.3); Osmolality Calculated 289 mOsm/kg (285-295); Potassium 4.4 mmol/L (3.5-5.1); Sodium 133 mmol/L (136-145)
--- NOTE | 2022-08-11 17:54 | P.PN_ITS ---
Subjective Subjective: She is awake and alert this morning. Was placed in the recliner. Denies pain or discomfort. No chest pain. Breathing comfortable with heated high flow cannula. States that he does feel he is quite weak. Discussing with him regarding pleural effusion, consideration of thoracentesis, he states we will consider it . Medications: Reviewed: Yes Vitals/I&O/Wt Last Vital Signs Temp 98.2 F 08/11/22 13:15 Pulse 73 08/11/22 15:32 Resp 22 H 08/11/22 14:27 BP 111/59 08/11/22 14:15 Pulse Ox 92 08/11/22 15:32 O2 Del Method High Flow Nasal Cannula 08/11/22 13:15 O2 Flow Rate 50 08/11/22 14:27 FiO2 60 08/11/22 15:32 08/11/22 08/11/22 08/11/22 06:59 14:59 22:59 Intake Total 260.000 / 8844.421 6332.914 / 1123.914 428.308 / 1552.222 Output Total 75 / 105 100 / 100 Balance 185.000 / 2243.341 8531.914 / 1023.914 428.308 / 1452.222 Physical Exam Const: COMMON NORMALS: patient oriented x3 and alert GENERAL APPEARANCE: cooperative, lethargic and frail appearing ORIENTATION/CONSCIOUSNESS: Yes awake and Yes lethargic HENMT: COMMON NORMALS: oropharynx normal OTHER: HHF cannula Neck/C-Spine: COMMON NORMALS: no JVD Resp: COMMON NORMALS: normal respiratory effort and clear to auscultation bilaterally AUSCULTATION: clear to auscultation bilaterally and diminished lung sounds bilateral in the lower lung bustillo Cardio: COMMON NORMALS: no JVD, regular rhythm, S1 normal heart sound present, S2 normal heart sound present and No murmurs present (Cardio) RHYTHM: regular rhythm HEART SOUNDS: S1 normal heart sound present and S2 normal heart sound present GI: COMMON NORMALS: Normal to inspection, nondistended, normoactive bowel sounds present, Soft to palpation and non-tender PALPATION: Yes Soft to palpation Extremity: COMMON NORMALS: no joint enlargement and no pedal edema Neuro: COMMON NORMALS: patient oriented x3 and moves all extremities SENSORIUM/ORIENTATION: Yes alert and Yes lethargic Skin: COMMON NORMALS: no rashes or lesions noted GENERAL SKIN EXAM: no rashes or lesions noted Urinary Catheter Management: Elizabeth: Cath Placed During This Visit: yes Reason for Continuing Indwelling Catheter: Accurate Measurement of Urinary Output in Critically Ill Patients Urinary Catheter Date of Insertion: 08/05/22 Urinary Catheter Time of Insertion: 06:15 Data 08/11/22 02:46 08/11/22 15:40 A&P Assessment and plan (1) Respiratory failure: This morning awake and alert. Switched to HHF cannula. To transfer to recliner transiently flow increased to 40 L 60%, subsequently doing a bit better down to 50%. In the evening tired again, went back to BiPAP. Lasted longer today. CT scan reviewed with him and his son. Discussing with him regarding possible thoracentesis he states we will consider it . Blood pressure was soft today and had to increase in Levophed support, so we will revisit again tomorrow at which point his son will be visiting and we can discuss at that time. Discussed risks, alternatives, potential benefits including fluid sample for additional assessment with leukocytosis, as well as little bit faster symptom relief of dyspnea. Leukocytosis noted with improvement today down to 13.6 Nephrology following him up off CRRT to reassess. Did make him a bit more urine than yesterday. Continue meropenem, vancomycin. Pending Fungitell, galactomannan, and starting empiric voriconazole. Additionally discussed assessment by CT chest abdomen pelvis. Discussed consideration evaluation at higher level care facility. (2) Leukocytosis: Mild improvement today at 13.6. Continue empiric antibiotics, empiric antifungal for now. Follow-up blood counts. No obvious pneumonia on CT chest. No obvious intra-abdominal pathology on CT abdomen pelvis. As above, not clear because of leukocytosis, possibly hypoperfusion secondary to low output failure, recommend as discussed cannot exclude possibility of pneumonia or other infection. Additional evaluation with CT chest abdomen pelvis. Continue empiric broad- spectrum antibiotics, added antifungal. Additionally requested Fungitell, galactomannan. (3) Hypotension: Shock, suspect cardiogenic shock, possibility of degree of hypovolemia, although still noted moderate pleural effusions on CT. Levophed support, he is suggesting management of CRRT. Improvement in blood pressure this evening. Monitor blood pressures. Maintain MAP. (4) Encephalopathy: Today more alert. Generally weak. Encephalopathy possibly cardiac in nature, low output cardiac failure, possibly metabolic with respiratory failure, or possibly another cause. This morning lethargic additionally probably from receiving benzodiazepine yesterday as well, although it was rather small dose. Additional imaging assessment as above. (5) CHF (congestive heart failure): For now CRRT stopped, pending reassessment of renal function, urine output. About 6-1/4 L removed with CRRT. Concern for low output failure with persistently soft blood pressures, AMS, multiorgan injury with ANGELLA, some transaminitis. Additional work-up as above. In the meantime Levophed support to maintain MAP. Cardiology and nephrology document patient reviewed. Monitor I&O. Monitor weights. (6) ANGELLA (acute kidney injury): CRRT stopped for now, pending reassessment. Monitor I&O. Continues on CRRT, tolerating well this morning, blood pressure softer this afternoon and had to restart on Levophed. Discussed with nephrology this morning, plans for continuation today, reassessment again tomorrow if able to discontinue. Follow-up chemistry. Follow-up urine output. (7) NSTEMI (non-ST elevated myocardial infarction): Appreciate cardiology recommendations, documentation reviewed. Continue aspirin, Plavix. Heparin drip for now. (8) Cardiogenic shock: Levophed as needed to maintain (9) Goals of care, counseling/discussion: Continue trial treatment and supportive care, including CRRT Further discussed with family plans for additional work-up, reassess over the next couple of days response to treatments and with further information additional discussion to take place with consideration of further goals of care. Plan PICC line placed 08/06 Attestations Medical Necessity Statement*: Continue admission for assessment management of respiratory failure, no further cardiac failure, multiorgan injury, further assessment of leukocytosis and additional conditions. Coding Level of Care Code Critical Care >/= 30 minutes Critical care time (in minutes): 35 The high probability of a clinically significant, sudden or life threatening deterioration, as referenced in this documentation, required my full and direct attention, intervention and personal management. The critical care time shown is in addition to time spent performing any reported separately billable procedures and includes the following: [x] Data and vital sign review and interpretation [x ] Patient assessment, examination and intervention [x] Medication orders and management [x] Patient/Family updates as able [x] Care Coordination and Documentation. Diagnoses Respiratory failure J96.90 Leukocytosis D72.829 Hypotension I95.9 Encephalopathy G93.40 CHF (congestive heart failure) I50.9 ANGELLA (acute kidney injury) N17.9 NSTEMI (non-ST elevated myocardial infarction) I21.4 Cardiogenic shock R57.0 Goals of care, counseling/discussion Z71.89
--- NOTE | 2022-08-11 18:00 | PM.PN ---
Subjective Subjective: Patient has been feeling more energetic today. He does have frequent PVCs. Denies chest pain. Says breathing is better than before Vitals/I&O/Wt Last Vital Signs Temp 98.2 F 08/11/22 13:15 Pulse 73 08/11/22 15:32 Resp 22 H 08/11/22 14:27 BP 111/59 08/11/22 14:15 Pulse Ox 92 08/11/22 15:32 O2 Del Method High Flow Nasal Cannula 08/11/22 13:15 O2 Flow Rate 50 08/11/22 14:27 FiO2 60 08/11/22 15:32 08/11/22 08/11/22 08/11/22 06:59 14:59 22:59 Intake Total 260.000 / 1102.703 0081.914 / 1123.914 428.308 / 1552.222 Output Total 75 / 105 100 / 100 Balance 185.000 / 8818.705 2505.914 / 1023.914 428.308 / 1452.222 Physical Exam Narrative: GENERAL: Patient is alert, On BiPAP NECK: No jugular vein distension. [] HEENT: No cyanosis. No icterus. No pallor. [] HEART: Regular S1 and S2. ] LUNGS: Diminished air entry CENTRAL NERVOUS SYSTEM: Grossly nonfocal. [] EXTREMITIES: Lower extremities with 1+ edema bilaterally. Urinary Catheter Management: Elizabeth: Cath Placed During This Visit: yes Reason for Continuing Indwelling Catheter: Accurate Measurement of Urinary Output in Critically Ill Patients Urinary Catheter Date of Insertion: 08/05/22 Urinary Catheter Time of Insertion: 06:15 Data 08/12/22 04:54 08/12/22 04:54 A&P Assessment and plan (1) Encephalopathy: (2) Cardiogenic shock: (3) CHF (congestive heart failure): (4) NSTEMI (non-ST elevated myocardial infarction): (5) ANGELLA (acute kidney injury): Plan Patient had non-ST elevation [place] at the presentation.. He went into cardiogenic shock. On and off requiring pressor support. He is overall feeling better but has not recovered his renal function. Was on CRRT. Nephrology on board. Goals of care discussion will be appropriate as coronary angiogram showed grafts were patent. After touchdown there is disease in [place] coronary arteries. Likely developed thrombus in the was resolved with anticoagulation however patient had significant LV dysfunction. 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 Right now cannot be started on beta-blockers given his requirement of Levophed on and off. Repeat limited echocardiogram with contrast today. Keep electrolytes repleted Thank you for involving us with care of this patient. We will continue to follow. please call with questions. Attestations Medical Necessity Statement*: Care expected to cross 2 midnights. Coding Level of Care Code Acute Code for [facility] Fwd Diagnoses Encephalopathy G93.40 Cardiogenic shock R57.0 CHF (congestive heart failure) I50.9 NSTEMI (non-ST elevated myocardial infarction) I21.4 ANGELLA (acute kidney injury) N17.9
--- NOTE | 2022-08-11 19:35 | PC.NURSE ---
SHift SUmmary: Patient was much more alert today than yesterday. ALert to person, place, time, and situation. About to hold a conversation. Got up to a recliner for about 6 hours and ate breakfast and lunch. Levophed requirements went up as high as 18 today, but were able to be titrated back down to 10. Near end of shift patient was becoming tired out and had to be placed back on the bipap. TOtal urine output during day shift 08/11/2022 has been 200mL, compared to yesterdays day shift of 75mL. 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
[2022-08-11] MEDS: heparin drip 25,000 UNIT/500 ML PREMIX 22 UNIT IV (19:38)
[2022-08-11 19:47] LABS: Partial Thromboplastin Time 59.4 SECONDS (23.9-36.7)
[2022-08-11] MEDS: atorvastatin 40 mg Tablet PO (20:26)
[2022-08-12] VITALS (107 sets, daily range): BP systolic 83–128; BP diastolic 46–80; PULSE 32–111; RESP 10–29; TEMP 35.9–36.8; O2SAT 81–100
--- NOTE | 2022-08-12 03:15 | ECG_ITS ---
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 Measurements Intervals [place] Rate: 59 P: 0 NE: 0 QRS: -24 QRSD: 130 T: 114 QT: 332 QTc: 331 Interpretive Statements ATRIAL FLUTTER WITH SLOW VENTRICULAR RESPONSE WITH ABERRANT CONDUCTION OR VENTRICULAR PREMATURE COMPLEXES SEPTAL MYOCARDIAL INFARCTION , OF INDETERMINATE AGE [40+ ms Q WAVE IN V1/V2] INTERPRETATION BASED ON A DEFAULT AGE OF 40 YEARS Compared to ECG 08/11/2022 13:20:03 Sinus rhythm no longer present Intraventricular conduction delay no longer present Myocardial infarct finding still present Electronically Signed On 08-12-2022 15:40:58 CDT by Benigno Geller M.D. [email or web address]/store/NU/[id number] f
--- NOTE | 2022-08-12 03:15 | ECG_ITS ---
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 Measurements Intervals [place] Rate: 59 P: 0 DE: 0 QRS: -24 QRSD: 130 T: 114 QT: 332 QTc: 331 Interpretive Statements ATRIAL FLUTTER WITH SLOW VENTRICULAR RESPONSE WITH ABERRANT CONDUCTION OR VENTRICULAR PREMATURE COMPLEXES SEPTAL MYOCARDIAL INFARCTION , OF INDETERMINATE AGE [40+ ms Q WAVE IN V1/V2] INTERPRETATION BASED ON A DEFAULT AGE OF 40 YEARS Compared to ECG 08/11/2022 13:20:03 Sinus rhythm no longer present Intraventricular conduction delay no longer present Myocardial infarct finding still present Electronically Signed On 08-12-2022 15:40:46 CDT by Benigno Geller M.D. [email or web address].[employer]/store/[id number] f
[2022-08-12 03:36] LABS: Blood Urea Nitrogen 52 mg/dL (8-23); Calcium 8.8 mg/dL (8.5-10.5); Carbon Dioxide 19 mmol/L (22-29); Chloride 94 mmol/L (98-107); Glucose 122 mg/dL (65-115); Magnesium 2.5 mg/dL (1.7-2.3); Osmolality Calculated 283 mOsm/kg (285-295); Sodium 129 mmol/L (136-145)
[2022-08-12 04:22] LABS: Troponin(5th) Baseline > 10000 ng/L (0-15)
[2022-08-12 05:13] LABS: Basophils % 0.2 %; Eosinophils # 0.1 10^3/uL (0.0-0.8); Eosinophils % 0.8 %; Lymphocytes # 2.3 10^3/uL (0.8-4.8); Lymphocytes % 13.4 %; Mean Corpuscular Hemoglobin 32.7 pg (28.0-34.0); Mean Platelet Volume 10.9 fL (7.4-10.4); Monocytes # 1.5 10^3/uL (0.2-0.9); Monocytes % 8.6 %; Neutrophils # 12.94 10^3/uL (1.8-7.7); Neutrophils % 75.1 %; Nucleated Red Blood Cells % 0.2 %; Platelet Count 207 10^3/cmm (130-400); Red Blood Count 2.45 10^6/uL (4.1-5.3); White Blood Count 17.2 10^3/uL (4.0-10.0)
[2022-08-12 05:30] LABS: Alanine Aminotransferase 50 U/L (0-41); Albumin Level 2.6 g/dL (3.5-5.2); Alkaline Phosphatase 66 U/L (40-130); Anion Gap 20.7 (5-19); Aspartate Amino Transferase 30 U/L (0-40); Blood Urea Nitrogen 52 mg/dL (8-23); Calcium 8.8 mg/dL (8.5-10.5); Carbon Dioxide 19 mmol/L (22-29); Chloride 96 mmol/L (98-107); Globulin 2.7 g/dL (1.3-4.6); Glucose 117 mg/dL (65-115); Osmolality Calculated 287 mOsm/kg (285-295); Potassium 4.7 mmol/L (3.5-5.1); Sodium 131 mmol/L (136-145); Total Bilirubin 0.4 mg/dL (0.15-1.2); Total Protein 5.3 g/dL (6.6-8.7)
[2022-08-12 05:45] LABS: Troponin 5 2HR Delta 0 ABS# (0-10)
[2022-08-12 05:46] LABS: Troponin 5 2HR > 10000 ng/L (0-15)
--- NOTE | 2022-08-12 06:27 | ECG_ITS ---
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 Measurements Intervals [place] Rate: 68 P: 0 HI: 0 QRS: -26 QRSD: 122 T: 106 QT: 318 QTc: 339 Interpretive Statements ATRIAL FLUTTER WITH ABERRANT CONDUCTION OR VENTRICULAR PREMATURE COMPLEXES SEPTAL MYOCARDIAL INFARCTION , OF INDETERMINATE AGE [40+ ms Q WAVE IN V1/V2] ST DEPRESSION, CONSIDER SUBENDOCARDIAL INJURY [0.1+ mV ST DEPRESSION] INTERPRETATION BASED ON A DEFAULT AGE OF 40 YEARS Compared to ECG 08/11/2022 13:20:03 Aberrant conduction of supraventricular beat(s) now present ST (T wave) deviation now present Sinus rhythm no longer present Ventricular premature complex(es) no longer present Intraventricular conduction delay no longer present Myocardial infarct finding still present Electronically Signed On 08-12-2022 15:41:06 CDT by Benigno Geller M.D. [email or web address]/store/NU/[id number]/[id number]
--- NOTE | 2022-08-12 06:34 | ECG_ITS ---
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 Measurements Intervals [place] Rate: 111 P: 0 OR: 0 QRS: 269 QRSD: 132 T: 84 QT: 382 QTc: 521 Interpretive Statements Sinus rhythm with ventricular bigeminy RIGHT AXIS DEVIATION [QRS AXIS > 100] RIGHT BUNDLE BRANCH BLOCK [120+ ms QRS DURATION, UPRIGHT V1, 40+ ms S IN I/aVL/V4/V5/V6] Compared to ECG 08/11/2022 13:20:03 Right-axis deviation now present Right bundle-branch block now present Sinus rhythm no longer present Ventricular premature complex(es) no longer present Intraventricular conduction delay no longer present Myocardial infarct finding still present Electronically Signed On 08-12-2022 15:43:05 CDT by Benigno Geller M.D. [email or web address].[email or web address]/store/[id number]
[2022-08-12 07:50] LABS: Partial Thromboplastin Time 68.9 SECONDS (23.9-36.7)
--- NOTE | 2022-08-12 08:07 | PM.PN ---
Subjective Subjective: No significant improvement in patient's condition. Renal function worsening. Requiring Levophed for blood pressure support. Vitals/I&O/Wt Last Vital Signs Temp 97.1 F L 08/12/22 03:45 Pulse 53 L 08/12/22 07:55 Resp 28 H 08/12/22 07:55 BP 97/53 08/12/22 06:00 Pulse Ox 99 08/12/22 07:55 O2 Del Method BiPAP 08/12/22 07:55 O2 Flow Rate 50 08/11/22 14:27 FiO2 60 08/12/22 07:55 08/11/22 08/12/22 08/12/22 22:59 06:59 14:59 Intake Total 817.562 / 2302.526 619.669 / 2922.195 Output Total 200 / 300 125 / 425 Balance 617.562 / 2002.526 494.669 / 2497.195 Physical Exam Narrative: GENERAL: Patient is alert, On BiPAP NECK: No jugular vein distension. [] HEENT: No cyanosis. No icterus. No pallor. [] HEART: Regular S1 and S2. ] LUNGS: Diminished air entry CENTRAL NERVOUS SYSTEM: Grossly nonfocal. [] EXTREMITIES: Lower extremities with 1+ edema bilaterally. Urinary Catheter Management: Elizabeth: Cath Placed During This Visit: yes Reason for Continuing Indwelling Catheter: Accurate Measurement of Urinary Output in Critically Ill Patients Urinary Catheter Date of Insertion: 08/05/22 Urinary Catheter Time of Insertion: 06:15 Data 08/13/22 03:36 08/13/22 03:36 A&P Assessment and plan (1) Encephalopathy: (2) Cardiogenic shock: (3) CHF (congestive heart failure): (4) NSTEMI (non-ST elevated myocardial infarction): (5) ANGELLA (acute kidney injury): Plan No significant improvement in patient's overall condition. I had a detailed discussion with patient's son regarding cardiogenic shock, renal failure and high oxygen requirements. He showed understanding. They are discussing about comfort care/hospice amongst the family. They will inform about the decision. Echocardiogram performed yesterday shows severely reduced LV systolic function however is of limited quality. Continue dual antiplatelet therapy. Keep electrolytes repleted Thank you for involving us with care of this patient. We will continue to follow. please call with questions. Attestations Medical Necessity Statement*: Care expected to cross 2 midnights. Coding Level of Care Code Acute Code for Chg Fwd Diagnoses Encephalopathy G93.40 Cardiogenic shock R57.0 CHF (congestive heart failure) I50.9 NSTEMI (non-ST elevated myocardial infarction) I21.4 ANGELLA (acute kidney injury) N17.9
[2022-08-12] MEDS: aspirin 81 mg EC Tablet PO (09:06)
[2022-08-12] MEDS: clopidogrel 75 mg Tablet PO (09:06)
[2022-08-12] MEDS: meropenem 1,000 MG in sodium chloride 0.9% (plus) 50 ML 100 MG IV (09:06)
[2022-08-12] MEDS: polyethylene glycol 3350 Pkt 17 gm PO (09:06)
[2022-08-12 09:34] LABS: LAB Peripheral Smear Sent for Review
--- NOTE | 2022-08-12 09:55 | PC.SOCIAL ---
Imm update Imm updated with patient at bedside. Copy of page 2 provided. Patient verbalized understanding. Copy in chart initialed, dated and timed.
--- NOTE | 2022-08-12 10:43 | PC.PHAR ---
[id number] VANCOMYCIN: Pt SCr up today from 2.2 to 2.8. Frequency adjusted to q48 hours 08/11 to begin 08/13. dosing should still be within limits. will continue to monitor labs and levels for possible need to adjust.
[2022-08-12] MEDS: HYDROcodone-acetaminophen 5-325 mg Tablet 1 TAB PO (10:44)
--- NOTE | 2022-08-12 11:16 | ECG_ITS ---
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 Measurements Intervals [place] Rate: 56 P: 52 ME: 154 QRS: -5 QRSD: 132 T: 226 QT: 400 QTc: 389 Interpretive Statements SINUS BRADYCARDIA WITH OCCASIONAL VENTRICULAR PREMATURE COMPLEXES WITH OCCASIONAL SUPRAVENTRICULAR PREMATURE COMPLEXES INTRAVENTRICULAR CONDUCTION DELAY [130+ ms QRS DURATION] SEPTAL MYOCARDIAL INFARCTION , PROBABLY OLD [40+ ms Q WAVE IN V1/V2] Compared to ECG 08/12/2022 03:15:05 Intraventricular conduction delay now present Atrial flutter no longer present Myocardial infarct finding still present Electronically Signed On 08-12-2022 15:42:25 CDT by Benigno Geller M.D. [email or web address].[employer]/store/OM/[id number]
[2022-08-12] MEDS: lidocaine 5% Patch 1 PATCH TOPICAL ×2 (12:27→22:20)
[2022-08-12] MEDS: norepinephrine 8 MG in dextrose 5 % 500 ML 38.1 MG IV (13:52)
[2022-08-12] MEDS: HYDROmorphone 1 mg/mL INJ 1 mL IVP ×2 (13:56→19:55)
--- NOTE | 2022-08-12 17:08 | PC.NURSE ---
Shift SUmmary: Patient has rested in bed throughout the day. Has been on bipap for most of the day, was taken off occaisonally for meals or PO medications. Unable to tolerated being off of bipap for more than 10 minutes before he starts to desaturate and becomes short of breath. He only ate small amounts today due to fatigue and shortness of breath. Patients Bipap is on 50% FIO2, but he has started needing 100% during revoering from bipap removal. Time to recover after being placed back on bipap has been increasing, nurse has become hesitant to remove bipap unless necessary. Initially heart rhythm was variable, chaing form afib, to sinus seven, to NS with multiple PVCs, a flutters. But later in the day it became a consistent bradycardic rhythm in the mid 50's. Levophed requirements have been 10-12 mics. TOtal urine output has been 250 mL.
--- NOTE | 2022-08-12 18:30 | PM.PN ---
Subjective Subjective: on BIPAP Medications: Reviewed: Yes Vitals/I&O/Wt Last Vital Signs Temp 98.1 F 08/12/22 17:15 Pulse 52 L 08/12/22 17:30 Resp 15 08/12/22 17:30 BP 102/67 08/12/22 17:30 Pulse Ox 90 08/12/22 17:30 O2 Del Method BiPAP 08/12/22 17:15 O2 Flow Rate 50 08/11/22 14:27 FiO2 50 08/12/22 17:15 08/12/22 08/12/22 08/12/22 06:59 14:59 22:59 Intake Total 619.669 / 2922.195 634.823 / 634.823 235.255 / 870.078 Output Total 125 / 425 125 / 125 125 / 250 Balance 494.669 / 2497.195 509.823 / 509.823 110.255 / 620.078 Physical Exam Narrative: awake , alert on high flow o2 s1 s2 rrr per report no edema Urinary Catheter Management: Elizabeth: Cath Placed During This Visit: yes Reason for Continuing Indwelling Catheter: Accurate Measurement of Urinary Output in Critically Ill Patients Urinary Catheter Date of Insertion: 08/05/22 Urinary Catheter Time of Insertion: 06:15 Data 08/12/22 04:54 08/12/22 04:54 Micro: Microbiology 08/11/22 13:50 Gram Stain - Final Sputum - Expectorated Sputum Sputum Culture - Preliminary 08/12/22 10:25 Blood Culture - Preliminary Blood SPECIMEN COLLECTED 08/12/22 09:53 Blood Culture - Preliminary Blood SPECIMEN COLLECTED A&P Assessment and plan (1) ANGELLA (acute kidney injury): Plan 1. Acute kidney injury: Secondary to shock-cardiogenic, currently on Levophed. Creatinine stable at 1.6, electrolytes stable and non oliguric. Patient has volume overload with pulmonary edema and S/P CRRT - on Levophed 14 mcg , - pt wont likely tolerate CRRT /HD 2. Coronary artery disease, history of CABG, now presented with NSTEMI, plans per cardiology, 3. Hyponatremia: Mild, monitor 4. Anemia: Hemoglobin 8.1 check iron studies transfuse if hemoglobin less than 7 Patient evaluated using audiovisual cart. Time spent 45 minutes Attestations Medical Necessity Statement*: per medicine Coding Level of Care Code Acute Code for Chg Fwd Diagnoses ANGELLA (acute kidney injury) N17.9
--- NOTE | 2022-08-12 18:43 | P.PN_ITS ---
Subjective Subjective: This morning he is bothered by pain in the back of his neck, cannot get his head comfortable to lay back on the pillow with significant neck arthritis. Denies chest pain. Medications: Reviewed: Yes Vitals/I&O/Wt Last Vital Signs Temp 98.1 F 08/12/22 17:15 Pulse 54 L 08/12/22 18:30 Resp 20 H 08/12/22 18:30 BP 110/58 08/12/22 18:30 Pulse Ox 92 08/12/22 18:30 O2 Del Method BiPAP 08/12/22 18:30 O2 Flow Rate 50 08/11/22 14:27 FiO2 50 08/12/22 18:30 08/12/22 08/12/22 08/12/22 06:59 14:59 22:59 Intake Total 619.669 / 2922.195 634.823 / 634.823 235.255 / 870.078 Output Total 125 / 425 125 / 125 125 / 250 Balance 494.669 / 2497.195 509.823 / 509.823 110.255 / 620.078 Physical Exam Narrative: On revisit son visiting him. Const: COMMON NORMALS: patient oriented x3 and alert GENERAL APPEARANCE: cooperative, lethargic and frail appearing ORIENTATION/CONSCIOUSNESS: Yes awake and Yes lethargic HENMT: COMMON NORMALS: oropharynx normal OTHER: Fullface BiPAP mask Cervical kyphosis. Neck/C-Spine: COMMON NORMALS: no JVD Resp: COMMON NORMALS: normal respiratory effort and clear to auscultation bilaterally AUSCULTATION: clear to auscultation bilaterally and diminished lung sounds bilateral in the lower lung bustillo Cardio: COMMON NORMALS: no JVD, regular rhythm, S1 normal heart sound present, S2 normal heart sound present and No murmurs present (Cardio) RHYTHM: regular rhythm HEART SOUNDS: S1 normal heart sound present and S2 normal heart sound present GI: COMMON NORMALS: Normal to inspection, nondistended, normoactive bowel sounds present, Soft to palpation and non-tender PALPATION: Yes Soft to palpation Extremity: COMMON NORMALS: no joint enlargement and no pedal edema Neuro: COMMON NORMALS: patient oriented x3 and moves all extremities SENSORIUM/ORIENTATION: Yes alert and Yes lethargic Skin: COMMON NORMALS: no rashes or lesions noted GENERAL SKIN EXAM: no rashes or lesions noted Urinary Catheter Management: Elizabeth: Cath Placed During This Visit: yes Reason for Continuing Indwelling Catheter: Accurate Measurement of Urinary Output in Critically Ill Patients Urinary Catheter Date of Insertion: 08/05/22 Urinary Catheter Time of Insertion: 06:15 Data 08/12/22 04:54 08/12/22 04:54 Micro: Microbiology 08/11/22 13:50 Gram Stain - Final Sputum - Expectorated Sputum Sputum Culture - Preliminary 08/12/22 10:25 Blood Culture - Preliminary Blood SPECIMEN COLLECTED 08/12/22 09:53 Blood Culture - Preliminary Blood SPECIMEN COLLECTED A&P Assessment and plan (1) Respiratory failure: Unfortunately has not been able to wean off BiPAP, and when switching temporarily to high flow cannula, takes him longer to recover saturation. Had a difficult night, yesterday with ectopy, few runs of VT, overnight again, started amiodarone, bradycardia this morning. Overnight troponin checked noted to be elevated over 10,000. Still hypotensive, still on 12-14 mcg/min of Levophed. He is hemodynamically too unstable to resume dialysis per discussion with nephrology. Discussing with cardiology suspected distal coronary ischemia in the setting of renal failure as well. Persistent low output failure. Limited TTE with low EF. Coronary angiography was considered by cardiology, but deemed not likely to meaningfully contribute, similarly with consideration of Impella. Unfortunately overall prognosis is poor and recovery any closer to his prior condition if at all possible likely to be long and arduous. Thoracentesis was also considered, however, with condition not improving, currently would be difficult with hypotension, and not likely to give meaningful long-term benefit. Further goals of care discussions took place today with discussion of options going forward. Family will further consider options including continuation of life support measures, consideration of possibly LTAC, versus continuation of current measures with addition of comfort measures, versus transition to full comfort measures and will let us know likely tomorrow. Continue empiric antibiotics for now as well but we will switch from meropenem to Zosyn given he is unable to dialyze. Requested blood culture. Nephrology following him up off CRRT to reassess. Did make him a bit more urine than yesterday. Pending Fungitell, galactomannan, and starting empiric voriconazole. (2) CHF (congestive heart failure): Unable to resume CRRT currently. Additional goals of care discussions underway. Consideration of transition to emphasis on comfort measures. Overnight quite bit of ectopy, runs of VT, was started amiodarone. This morning bradycardic amiodarone was stopped. Previously about 6-1/4 L removed with CRRT. Concern for low output failure with persistently soft blood pressures, AMS, multiorgan injury with ANGELLA, some transaminitis. In the meantime Levophed support to maintain MAP. Cardiology and nephrology document patient reviewed. Monitor I&O. Monitor weights. (3) Leukocytosis: Again worsened after difficult night. Change from meropenem to Zosyn as he cannot dialyze, continue vancomycin, continue empiric antifungal for now. Requested blood culture. Follow-up blood counts. No obvious pneumonia on CT chest. No obvious intra-abdominal pathology on CT abdomen pelvis. As above, not clear because of leukocytosis, possibly hypoperfusion secondary to low output failure, recommend as discussed cannot exclude possibility of pneumonia or other infection. Additional evaluation with CT chest abdomen pelvis. Continue empiric broad- spectrum antibiotics, added antifungal. Additionally requested Fungitell, galactomannan. (4) Hypotension: Continues to require pressors. Continue Levophed to maintain MAP. (5) Encephalopathy: On 08/11 he was more alert. Today weaker, although gives some brief responses. Encephalopathy possibly cardiac in nature, low output cardiac failure, possibly metabolic with respiratory failure, or possibly another cause. This morning lethargic additionally probably from receiving benzodiazepine yesterday as well, although it was rather small dose. Additional imaging assessment as above. (6) ANGELLA (acute kidney injury): CRRT was stopped pending reassessment of renal function. Currently unable to resume due to persistent high pressor requirement. Monitor I&O. Continues on CRRT, tolerating well this morning, blood pressure softer this afternoon and had to restart on Levophed. Discussed with nephrology this morning, plans for continuation today, reassessment again tomorrow if able to discontinue. Follow-up chemistry. Follow-up urine output. (7) NSTEMI (non-ST elevated myocardial infarction): Appreciate cardiology recommendations, documentation reviewed. Continue aspirin, Plavix. Heparin drip for now. (8) Cardiogenic shock: Levophed as needed to maintain MAP (9) Goals of care, counseling/discussion: Overall prognosis is poor. Discussed with his aunt, family to further discuss goals of care and revisit tomorrow. Plan PICC line placed 6/2 Attestations Medical Necessity Statement*: Continue admission for assessment management of respiratory failure, low output heart failure, multiorgan injury, further assessment of leukocytosis and additional conditions. Coding Level of Care Code Critical Care >/= 30 minutes Critical care time (in minutes): 40 The high probability of a clinically significant, sudden or life threatening deterioration, as referenced in this documentation, required my full and direct attention, intervention and personal management. The critical care time shown is in addition to time spent performing any reported separately billable procedures and includes the following: [x] Data and vital sign review and interpretation [x ] Patient assessment, examination and intervention [x] Medication orders and management [x] Patient/Family updates as able [x] Care Coordination and Documentation. Diagnoses Respiratory failure J96.90 CHF (congestive heart failure) I50.9 Leukocytosis D72.829 Hypotension I95.9 Encephalopathy G93.40 ANGELLA (acute kidney injury) N17.9 NSTEMI (non-ST elevated myocardial infarction) I21.4 Cardiogenic shock R57.0 Goals of care, counseling/discussion Z71.89
[2022-08-12] MEDS: piperacillin-tazobactam 3.375 GM in sodium chloride 0.9% (plus) 50 ML IV (20:04)
[2022-08-12] MEDS: heparin drip 25,000 UNIT/500 ML PREMIX 22 UNIT IV (20:04)
[2022-08-12] MEDS: atorvastatin 40 mg Tablet PO (22:21)
[2022-08-12] MEDS: alteplase 1 mg/mL SDV 2 mL 2 MG INTRACATH ×2 (22:35→22:41)
[2022-08-12] MEDS: alteplase 1 mg/mL SDV 2 mL INTRACATH (22:40)
[2022-08-13] VITALS (77 sets, daily range): BP systolic 75–127; BP diastolic 38–69; PULSE 48–75; RESP 7–28; TEMP 36.4–36.5; O2SAT 85–100; BMI 22.6
[2022-08-13] MEDS: HYDROmorphone 1 mg/mL INJ 1 mL IVP ×5 (03:12→22:46)
[2022-08-13] MEDS: piperacillin-tazobactam 3.375 GM in sodium chloride 0.9% (plus) 50 ML IV ×2 (03:13→11:53)
[2022-08-13 04:09] LABS: Basophils # 0.1 10^3/uL (0.0-0.1); Basophils % 0.3 %; Eosinophils # 0.2 10^3/uL (0.0-0.8); Eosinophils % 1.1 %; Hematocrit 24.4 % (42.0-52.0); Hemoglobin 7.9 g/dL (11.7-16.6); Lymphocytes # 2.3 10^3/uL (0.8-4.8); Lymphocytes % 14.5 %; Mean Corpuscular HGB Conc 32.4 g/dL (30.0-36.0); Mean Corpuscular Hemoglobin 32.8 pg (28.0-34.0); Mean Corpuscular Volume 101.2 fl (80-94); Mean Platelet Volume 11.3 fL (7.4-10.4); Monocytes # 1.4 10^3/uL (0.2-0.9); Monocytes % 8.7 %; Neutrophils # 11.32 10^3/uL (1.8-7.7); Neutrophils % 72.3 %; Nucleated Red Blood Cells # 0.1 /100WBC; Nucleated Red Blood Cells % 0.4 %; Platelet Count 220 10^3/cmm (130-400); Red Blood Count 2.41 10^6/uL (4.1-5.3); White Blood Count 15.7 10^3/uL (4.0-10.0)
[2022-08-13 04:35] LABS: Alanine Aminotransferase 40 U/L (0-41); Albumin Level 2.7 g/dL (3.5-5.2); Alkaline Phosphatase 92 U/L (40-130); Anion Gap 19.3 (5-19); Aspartate Amino Transferase 27 U/L (0-40); Blood Urea Nitrogen 73 mg/dL (8-23); Calcium 9.2 mg/dL (8.5-10.5); Carbon Dioxide 21 mmol/L (22-29); Chloride 94 mmol/L (98-107); Globulin 2.8 g/dL (1.3-4.6); Glucose 127 mg/dL (65-115); Osmolality Calculated 291 mOsm/kg (285-295); Potassium 5.3 mmol/L (3.5-5.1); Sodium 129 mmol/L (136-145); Total Bilirubin 0.4 mg/dL (0.15-1.2); Total Protein 5.5 g/dL (6.6-8.7)
[2022-08-13 04:36] LABS: Partial Thromboplastin Time 110.8 SECONDS (23.9-36.7)
[2022-08-13] MEDS: norepinephrine 8 MG in dextrose 5 % 500 ML 38.1 MG IV (05:13)
--- NOTE | 2022-08-13 08:02 | PC.NURSE ---
son called for update this am ... aware of status will talk with and will probably go comfort care will be up today
[2022-08-13] MEDS: lidocaine 5% Patch 1 PATCH TOPICAL (09:22)
--- NOTE | 2022-08-13 10:40 | PM.PN ---
Subjective Subjective: Patient's condition unchanged. Vitals/I&O/Wt Last Vital Signs Temp 97.6 F 08/13/22 04:14 Pulse 48 L 08/13/22 09:00 Resp 12 08/13/22 09:00 BP 110/51 08/13/22 09:00 Pulse Ox 100 08/13/22 09:00 O2 Del Method BiPAP 08/13/22 08:02 O2 Flow Rate 50 08/11/22 14:27 FiO2 40 08/13/22 10:00 08/12/22 08/13/22 08/13/22 22:59 06:59 14:59 Intake Total 1067.255 / 1702.078 849.033 / 2551.111 50 / 50 Output Total 264 / 389 150 / 539 Balance 803.255 / 1313.078 699.033 / 2011.111 50 / 50 Weight last 48 hrs Weight 162 lb Physical Exam Narrative: GENERAL: Patient is drowsy, On BiPAP NECK: No jugular vein distension. [] HEENT: No cyanosis. No icterus. No pallor. [] HEART: Regular S1 and S2. ] LUNGS: Diminished air entry CENTRAL NERVOUS SYSTEM: Grossly nonfocal. [] EXTREMITIES: Lower extremities with 1+ edema bilaterally. Urinary Catheter Management: Elizabeth: Cath Placed During This Visit: yes Reason for Continuing Indwelling Catheter: Accurate Measurement of Urinary Output in Critically Ill Patients Urinary Catheter Date of Insertion: 08/05/22 Urinary Catheter Time of Insertion: 06:15 Data 08/13/22 03:36 08/13/22 03:36 Micro: Microbiology 08/12/22 10:25 Blood Culture - Preliminary Blood NEGATIVE TO DATE 08/12/22 09:53 Blood Culture - Preliminary Blood NEGATIVE TO DATE 08/11/22 13:50 Gram Stain - Final Sputum - Expectorated Sputum Sputum Culture - Preliminary A&P Assessment and plan (1) Encephalopathy: (2) Cardiogenic shock: (3) CHF (congestive heart failure): (4) NSTEMI (non-ST elevated myocardial infarction): (5) ANGELLA (acute kidney injury): Plan Patient's overall condition is unchanged. No significant improvement. Family has decided to proceed with comfort care measures Thank you for involving us with care of this patient. We will sign off. Please call with questions. Attestations Medical Necessity Statement*: Care expected to cross 2 midnights. Coding Level of Care Code Acute Code for Chg Fwd Diagnoses Encephalopathy G93.40 Cardiogenic shock R57.0 CHF (congestive heart failure) I50.9 NSTEMI (non-ST elevated myocardial infarction) I21.4 ANGELLA (acute kidney injury) N17.9
[2022-08-13] MEDS: vancomycin 1,250 MG/250 ML PIGGYBACK 200 MG IV (10:43)
--- NOTE | 2022-08-13 11:49 | P.PN_ITS ---
Subjective Subjective: Patient appears comfortable. He is wearing BiPAP with Scuba mask. No acute overnight per nursing. Awaiting for family for continued goals of care discussions. Medications: Reviewed: Yes Vitals/I&O/Wt Last Vital Signs Temp 97.6 F 08/13/22 04:14 Pulse 49 L 08/13/22 10:57 Resp 12 08/13/22 09:00 BP 110/51 08/13/22 09:00 Pulse Ox 98 08/13/22 10:57 O2 Del Method BiPAP 08/13/22 08:02 O2 Flow Rate 50 08/11/22 14:27 FiO2 40 08/13/22 10:57 08/12/22 08/13/22 08/13/22 22:59 06:59 14:59 Intake Total 1067.255 / 1702.078 849.033 / 2551.111 50 / 50 Output Total 264 / 389 150 / 539 Balance 803.255 / 1313.078 699.033 / 2011.111 50 / 50 Weight last 48 hrs Weight 73.482 kg Physical Exam Narrative: General: Patient is sleeping. On BiPAP. Frail appearing. Head: Normocephalic. Eyes closed. Neck: No JVD. Cardiovascular: Bradycardic. No gallops. No murmurs. Lungs: Breath sounds diminished in bilateral bases. Faint dependent crackes. On BiPAP. No wheezing. Skin: No jaundice. No rashes. Abdomen: Soft. Not distended. Hypoactive bowel sounds. Extremities: No cyanosis or clubbing. Musculoskeletal: Poor muscular development. Neurological: No myoclonus. Urinary Catheter Management: Elizabeth: Cath Placed During This Visit: yes Reason for Continuing Indwelling Catheter: Accurate Measurement of Urinary Outpu t in Critically Ill Patients Urinary Catheter Date of Insertion: 08/05/22 Urinary Catheter Time of Insertion: 06:15 Data 08/13/22 03:36 08/13/22 03:36 Micro: Microbiology 08/12/22 10:25 Blood Culture - Preliminary Blood NEGATIVE TO DATE 08/12/22 09:53 Blood Culture - Preliminary Blood NEGATIVE TO DATE 08/11/22 13:50 Gram Stain - Final Sputum - Expectorated Sputum Sputum Culture - Preliminary A&P Assessment and plan (1) Goals of care, counseling/discussion: Patient remains critically ill Plan for ongoing goals of care conversations Per signout, family contemplating transition to comfort care pathway Follow up family wishes (2) Respiratory failure: Patient remains on BiPAP, noted to be BiPAP dependent in prior days Optimize fluid status Continue antimicrobials - Zosyn, Vanc, Vfend Fungal labs are pending DuoNebs Ongoing goals of care (3) Cardiogenic shock: He remains in shock Continue Levophed (4) CHF (congestive heart failure): Remains volume overloaded Previously on CRRT Evaluated by cardiology and nephrology Strict I&Os Daily weights (5) ANGELLA (acute kidney injury): Previously on CRRT Nephrology following Monitor renal function Consider additional PROMOTIONS SPECIALIST pending family wishes (6) NSTEMI (non-ST elevated myocardial infarction): Cardiology evaluated Continue aspirin Continue Plavix Continue statin Discontinue heparin drip (7) Encephalopathy: Secondary to acute metabolic encephalopathy Treat underlying pathology Avoid sedating medications Encourage family participation in care Plan DVT ppx: Heparin Code status: Limited Attestations Medical Necessity Statement*: Patient remains critically ill requiring ongoing hospitailization for non- invasive mechanical ventilation, vasopressor support, and supportive care. Critical Care Time: The high probability of a clinically significant, sudden or life threatening deterioration of the patient's respiratory, cardiac, circulatory system(s) required my full and direct attention, intervention and personal management. The critical care time is as shown. This time is in addition to time spent performing any reported procedures but includes the following: [x] Data and vital sign review and interpretation [x] Patient assessment, examination and intervention [x] Documentation [x] Medication orders and management Critical Care Time (min): 35 Coding Level of Care Code Acute Code for Chg Fwd Diagnoses Goals of care, counseling/discussion Z71.89 Respiratory failure J96.90 Cardiogenic shock R57.0 CHF (congestive heart failure) I50.9 ANGELLA (acute kidney injury) N17.9 NSTEMI (non-ST elevated myocardial infarction) I21.4 Encephalopathy G93.40
--- NOTE | 2022-08-13 13:59 | PC.NURSE ---
Family here at bedside talked with doctor here aware of status have decided to make pt comfort care at this time .. Dilaudid given iv
[2022-08-13] MEDS: LORazepam 2 mg/mL INJ 1 mL 0.5 MG IVP ×2 (14:13→22:40)
--- NOTE | 2022-08-13 14:17 | PC.NURSE ---
family left started medication for comfort
--- NOTE | 2022-08-13 16:07 | PC.NURSE ---
on 2lnc at this time medication for comfort given oral care done
--- NOTE | 2022-08-13 20:16 | PC.NURSE ---
Code status change confirmed with Dr. Bansal, this nurse requested to be changed by physician to comfort care in record. Physician unable to do so due to being out of facility, requested this nurse update to comfort measures. Comfort care orders already in place and noted in patient's report. Status updated by nurse to Comfort Measures Only .
--- NOTE | 2022-08-13 21:14 | PC.NURSE ---
Family updated on patient's status @2100. No major changes since transition to comfort care. Family gave permission to release body to [facility] home in [facility] when needed. Requested to call with update in the morning to allow family to rest overnight. Information passed along to night staff.
[2022-08-14] VITALS (19 sets, daily range): BP systolic 45–76; BP diastolic 27–46; PULSE 0–84; RESP 8–17; O2SAT 51–91
[2022-08-14] MEDS: HYDROmorphone 1 mg/mL INJ 1 mL IVP ×4 (00:53→06:04)
[2022-08-14] MEDS: LORazepam 2 mg/mL INJ 1 mL 0.5 MG IVP (03:45)
--- NOTE | 2022-08-14 06:14 | PC.NURSE ---
Patient was provided frequent comfort care including: oral swabs, pain medication, anxiety medication. Family was updated at start of shift and end of shift by nurse. BP has trended down through shift with maps now in the mid 40s.
[2022-08-14] MEDS: glycopyrrolate 0.2 mg/mL SDV 2 mL IV (06:43)
--- NOTE | 2022-08-14 10:03 | PC.NURSE ---
pt at 0904. Called pt's son Gigi at approximately 0830 when patient's heart rate and oxygen saturation dropped. Son was very nice and said that they had already said their goodbyes yesterday and that nobody would be coming in to see him. I let him know that I would keep him updated. I was at patient's bedside when he went asystole at 0904. Pt's time of was 0904. I called and notified his son Gigi and tank house operator was also called and notified. Bait Painter called [facility]. Arrangements were already made for patient to go to [facility] in [place].
--- NOTE | 2022-08-14 10:48 | P.DS_ITS ---
Discharge Providers Date of Admission: 08/05/22 05:32 Date of Discharge: August 14, 2022 Attending Provider at Admission: Virginia Romero MD Attending Provider at Discharge: Randy Bansal MD Consults: Cardiology General Surgery Nephrology Primary Care Provider: Reva Alcantara MD Diagnoses at Discharge Discharge Diagnosis (1) Encephalopathy: Status: Acute (2) Cardiogenic shock: Status: Acute (3) CHF (congestive heart failure): Status: Acute (4) NSTEMI (non-ST elevated myocardial infarction): Status: Acute (5) ANGELLA (acute kidney injury): Status: Acute Reason for Visit Reason for Visit: Chest Pain Physical Exam Urinary Catheter Management: Elizabeth: Cath Placed During This Visit: yes Reason for Continuing Indwelling Catheter: Hospice/Comfort/Palliative Care Urinary Catheter Date of Insertion: 08/05/22 Urinary Catheter Time of Insertion: 06:15 Discharge Data Studies Completed and Pending Completed Studies During Hospitalization Category Date Time Status CT chest abdomen pelvis [place] [id number] Cat Scan 08/10/22 14:57 Completed ] Routine CXRP [XR chest 1V portable [id number]] Routine Exams 08/09/22 08:33 Completed CXRP [XR chest 1V portable 26621] Stat Exams 08/05/22 05:52 Completed CXRP [XR chest 1V portable 41604] Stat Exams 08/06/22 22:26 Completed XR chest 1V portable 43142 Routine Exams 08/07/22 16:25 [place] [id number] Routine Ultrasound 08/05/22 05:58 Completed CV. echo wo/w contrast [id number] Routine Ultrasound 08/05/22 05:52 Completed US echo limited with contrast [CV. echo lmt w/w contras Ultrasound 08/11/22 13:29 Completed 91589] Routine US renal BI with PV bladder Routine Ultrasound 08/07/22 21:00 Completed Pending at discharge Category Date Time Status ACCOUNTING GENERALIST request for service Routine Exams 08/05/22 09:56 Taken Blood Culture Stat Lab 08/12/22 10:25 Results Fungitell Glucan Assay (Blood) Routine Lab 08/10/22 02:07 Received GALACTOMANAN [Aspergillus AG,EIA,Serum] Routine Lab 08/10/22 02:07 Received Histoplasma Galactomannan Ag Routine Lab 08/10/22 20:22 Received Sputum Culture and Gram Stain Routine Lab 08/11/22 13:50 Results Radiology Impressions Renal Ultrasound 08/07/22 21:00 IMPRESSION: No acute findings. Chest X-Ray 08/09/22 08:33 IMPRESSION: COPD, interstitial prominence, and bibasilar airspace disease, with mild interval worsening left basilar airspace disease. Chest/Abdomen/Pelvis CT 08/10/22 14:57 IMPRESSION: 1. Mild cardiomegaly with moderate bibasilar pleural effusions and adjacent lower lobe atelectasis. 2. Extensive calcification of the coronary arteries and thoracic aorta. IMPRESSION: 1. No acute findings within the abdomen or pelvis. 2. Negative for abscess collection or evidence of inflammatory process in the abdomen and pelvis. 3. Additional chronic findings as above. COMMENTS: Consistent with the [place] [employer]'s Incidental Findings Committee white paper (J Am Kellee Radiol 2018): Any incidental renal lesion less than 1 cm or classified as too small to characterize, or any incidental cystic renal lesion characterized as simple-appearing, is likely benign. No follow-up imaging is recommended for these lesions per consensus recommendations based on imaging criteria. Laboratory Results WBC 15.7 10^3/uL (4.0-10.0) H 08/13/22 03:36 RBC 2.41 10^6/uL (4.1-5.3) L 08/13/22 03:36 Hgb 7.9 g/dL (11.7-16.6) L 08/13/22 03:36 Hct 24.4 % (42.0-52.0) L 08/13/22 03:36 MCV 101.2 fl (80-94) H 08/13/22 03:36 MCH 32.8 pg (28.0-34.0) 08/13/22 03:36 MCHC 32.4 g/dL (30.0-36.0) 08/13/22 03:36 RDW 16.0 % (12.1-15.1) H 08/13/22 03:36 Plt Count 220 10^3/cmm (130-400) 08/13/22 03:36 MPV 11.3 fL (7.4-10.4) H 08/13/22 03:36 Neut % (Auto) 72.3 % 08/13/22 03:36 Lymph % (Auto) 14.5 % 08/13/22 03:36 Hopkins % (Auto) 8.7 % 08/13/22 03:36 Eos % (Auto) 1.1 % 08/13/22 03:36 Baso % (Auto) 0.3 % 08/13/22 03:36 Neut # (Auto) 11.32 10^3/uL (1.8-7.7) H 08/13/22 03:36 Lymph # (Auto) 2.3 10^3/uL (0.8-4.8) 08/13/22 03:36 Hopkins # (Auto) 1.4 10^3/uL (0.2-0.9) H 08/13/22 03:36 Eos # (Auto) 0.2 10^3/uL (0.0-0.8) 08/13/22 03:36 Baso # (Auto) 0.1 10^3/uL (0.0-0.1) 08/13/22 03:36 Nucleated RBC % (auto) 0.4 % 08/13/22 03:36 Nucleated RBCs # 0.1 /100WBC 08/13/22 03:36 Peripher Smr Path Cons Sent for review 08/12/22 04:54 APTT 110.8 SECONDS (23.9-36.7) H D 08/13/22 03:36 Specimen Type Arterial 08/09/22 08:12 Sample Site Brachial, left 08/09/22 08:12 ABG pH 7.38 (7.35-7.45) 08/09/22 08:12 ABG pCO2 35.3 mmHg (35-45) 08/09/22 08:12 ABG pO2 54.6 mmHg (80.0-100.0) L 08/09/22 08:12 ABG HCO3 21.0 mmol/L (22-26) L 08/09/22 08:12 ABG O2 Saturation 86.8 08/09/22 08:12 ABG Base Excess -3.6 mmol/L (-2.0-2.0) L 08/09/22 08:12 Les Test Pos 08/09/22 08:12 A-a O2 Gradient 6.7 mmHg (5-10) 08/09/22 08:12 Hematocrit 29.7 % (42-52) L 08/09/22 08:12 Hgb O2 Saturation 85.5 % (95-100) L 08/09/22 08:12 Carboxyhemoglobin 0.9 %THgb (0.4-20.1) 08/09/22 08:12 Methemoglobin 0.6 % (0.4-1.5) 08/09/22 08:12 Total Hemoglobin 9.7 g/dL (14-18) L 08/09/22 08:12 Sodium 135.0 mmol/L (131-143) 08/09/22 08:12 Potassium 4.7 mmol/L (3.5-5.0) 08/09/22 08:12 Glucose 109.0 mg/dL (70-115) 08/09/22 08:12 Ionized Calcium 1.2 mmol/L (1.1-1.4) 08/09/22 08:12 O2 Delivery Device Bipap 08/09/22 08:12 O2 Liters/Min 15.0 % 08/05/22 07:00 FiO2 40.0 % 08/09/22 08:12 Enterprise Mobility Architect ID Poly Operator 08/09/22 08:12 Sodium 129 mmol/L (136-145) L 08/13/22 03:36 Potassium 5.3 mmol/L (3.5-5.1) H 08/13/22 03:36 Chloride 94 mmol/L (98-107) L 08/13/22 03:36 Carbon Dioxide 21 mmol/L (22-29) L 08/13/22 03:36 Anion Gap 19.3 (5-19) H 08/13/22 03:36 BUN 73 mg/dL (8-23) H 08/13/22 03:36 Creatinine 2.9 mg/dL (0.7-1.2) H 08/13/22 03:36 GFR Calculation Not Reportable 08/13/22 03:36 Glucose 127 mg/dL (65-115) H 08/13/22 03:36 POC Glucose 175 mg/dL (70-110) H 08/11/22 14:42 Calculated Osmolality 291 mOsm/kg (285-295) 08/13/22 03:36 Calcium 9.2 mg/dL (8.5-10.5) 08/13/22 03:36 Phosphorus 2.2 mg/dL (2.5-4.5) L 08/11/22 02:46 Magnesium 2.5 mg/dL (1.7-2.3) H 08/12/22 03:05 Total Bilirubin 0.4 mg/dL (0.15-1.2) 08/13/22 03:36 AST 27 U/L (0-40) 08/13/22 03:36 ALT 40 U/L (0-41) 08/13/22 03:36 Alkaline Phosphatase 92 U/L (40-130) 08/13/22 03:36 Creatine Kinase 780 U/L (39-308) H* 08/06/22 19:30 Troponin T Baseline > 92970 ng/L (0-15) H* 08/12/22 03:05 Troponin T 120 Minute > 67860 ng/L (0-15) H 08/12/22 04:54 Delta Troponin T 0 ABS# (0-10) 08/12/22 04:54 Troponin T Hi Sens 6Hr 1152 ng/L (0-15) H 08/05/22 12:30 Troponin T Hi Sens 6Hr Delta 1018 ng/L (0-12) H* 08/05/22 12:30 Total Protein 5.5 g/dL (6.6-8.7) L 08/13/22 03:36 Albumin 2.7 g/dL (3.5-5.2) L 08/13/22 03:36 Globulin 2.8 g/dL (1.3-4.6) 08/13/22 03:36 TSH 15.74 uIU/mL (0.27-4.20) H 08/10/22 07:49 Thyroxine (T4) 5.1 mcg/dL (4.9-10.5) 08/09/22 09:23 Random Cortisol 26.47 ug/dL (2.47-19.5) H 08/10/22 07:49 Urine Color Yellow (Yellow) 08/06/22 09:53 Urine Appearance Clear (CLEAR) 08/06/22 09:53 Urine pH 5 (5-7) 08/06/22 09:53 Ur Specific Lingle 1.015 (1.005-1.030) 08/06/22 09:53 Urine Protein Neg (Negative) 08/06/22 09:53 Urine Glucose (UA) Norm (Normal) 08/06/22 09:53 Urine Ketones Negative (Negative) 08/06/22 09:53 Urine Blood 2+ (Negative) H 08/06/22 09:53 Urine Nitrate Negative (Negative) 08/06/22 09:53 Urine Bilirubin Neg (Negative) 08/06/22 09:53 Urine Urobilinogen Neg mg/dL (Negative) 08/06/22 09:53 Ur Leukocyte Esterase Negative (Negative) 08/06/22 09:53 Urine RBC 0-4 /hpf (0-2) H 08/06/22 09:53 Urine WBC 0-4 /hpf (0-5) H 08/06/22 09:53 Ur Squamous Epith Cells 0-4 /hpf (0-5) H 08/06/22 09:53 Amorphous Sediment Not Reportable 08/06/22 09:53 Urine Bacteria Trace /hpf (NONE) 08/06/22 09:53 Urine Mucus 1+ /hpf 08/06/22 09:53 Nasal Influ A H1 2008 PCR Not detected (NOT DETECT) 08/09/22 09:17 Vancomycin Trough 11.7 ug/mL (10-15) 08/09/22 09:23 Adenovirus (PCR) Not detected (NOT DETECT) 08/09/22 09:17 C. pneumoniae DNA (PCR) Not detected (NOT DETECT) 08/09/22 09:17 Coronavirus 229E (PCR) Not detected (NOT DETECT) 08/09/22 09:17 Human Metapneumovir PCR Not detected (NOT DETECT) 08/09/22 09:17 Influenza A (H1) PCR Not detected (NOT DETECT) 08/09/22 09:17 Influenza A (H3) PCR Not detected (NOT DETECT) 08/09/22 09:17 Influenza Type A (PCR) Not detected (NOT DETECT) 08/09/22 09:17 Influenza Type B (PCR) Not detected (NOT DETECT) 08/09/22 09:17 M. pneumoniae (PCR) Not detected (NOT DETECT) 08/09/22 09:17 Parainfluenza 1 (PCR) Not detected (NOT DETECT) 08/09/22 09:17 Parainfluenza 2 (PCR) Not detected (NOT DETECT) 08/09/22 09:17 Parainfluenza 3 (PCR) Not detected (NOT DETECT) 08/09/22 09:17 Parainfluenza 4 (PCR) Not detected (NOT DETECT) 08/09/22 09:17 RSV Type A (PCR) Not detected (NOT DETECT) 08/09/22 09:17 RSV Type B (PCR) Not detected (NOT DETECT) 08/09/22 09:17 Entero/Rhino (PCR) Not detected (NOT DETECT) 08/09/22 09:17 SARS-CoV-2 (PCR) Not detected (NOT DETECT) 08/09/22 09:17 Vitals Last Vital Signs Temp 97.6 F 08/13/22 04:14 Pulse 0 L 08/14/22 09:00 Resp 12 08/14/22 09:00 BP 45/27 08/14/22 09:00 Pulse Ox 51 L 08/14/22 09:00 O2 Del Method Nasal Cannula 08/14/22 09:00 O2 Flow Rate 2 08/14/22 09:00 FiO2 40 08/13/22 18:00 Discharge Plan Discharge Patient Disposition: Condition: Stable Prescriptions: No Action atorvastatin 80 mg tablet 80 mg PO QPM carvedilol 6.25 mg tablet 12.5 mg PO BID prednisone 20 mg tablet 20 mg PO BID hydralazine 25 mg tablet 25 mg PO Q8H tramadol 50 mg tablet 50 mg PO Q8H PRN (Reason: Pain) levothyroxine 88 mcg tablet 88 mcg PO QAM tamsulosin 0.4 mg capsule 0.4 mg PO QPM amlodipine 10 mg tablet 10 mg PO QPM allopurinol 300 mg tablet 300 mg PO DAILY furosemide 20 mg tablet 40 mg PO DAILY Xarelto 15 mg tablet 15 mg PO QPM potassium chloride 20 mEq tablet extended release 20 meq PO QAM vitamin E25-ystdu acid 2,500-400 mcg Tablet,Disintegrating 1 tab PO DAILY Patient Instructions: Opioid Safety Coding Level of Care Code Acute Code for g Fwd Diagnoses Encephalopathy G93.40 Cardiogenic shock R57.0 CHF (congestive heart failure) I50.9 NSTEMI (non-ST elevated myocardial infarction) I21.4 ANGELLA (acute kidney injury) N17.9
--- NOTE | 2022-08-14 17:00 | PM.DDS ---
Discharge Providers DDS Date of Admission: 08/05/22 05:32 Date Summary Completed: 08/14/22 Attending Provider at Admission: Virginia Romero MD Time of : 09:04 Attending Provider at Discharge: Randy Bansal MD Pronouncing Clinician: Randy Bansal Consults: Cardiology General Surgery Nephrology Primary Care Provider: Reva Alcantara MD DS Diagnoses Hospital Diagnoses (1) Encephalopathy: (2) Cardiogenic shock: (3) CHF (congestive heart failure): (4) NSTEMI (non-ST elevated myocardial infarction): (5) ANGELLA (acute kidney injury): Reason for Visit Reason for Visit Chest Pain Summary Date and Time of Date of : 08/14/22 Time of : 09:04 Summary Summary: Donny Marshall is a 87 year old male with a past medical history of CAD status post CABG and stents, bioprosthetic aortic valve replacement, and history of abdominal aortic aneurysm who presented to outside hospital with chest pain, found to have NSTEMI, heart failure exacerbation with cardiogenic shock requiring vasopressor support, acute kidney injury progressing to renal failure requiring CRRT and respiratory failure requiring non-invasive mechanical ventilation. Cardiology and nephrology followed. Cardiac cath showed disease not amendable to PCI. Patient treated medically. Patient also treated for suspected septic shock with broad spectrum antibiotics and eventually antifungal treatment as well. He failed to significantly improve. Goals of care conversations were held with family. Patient transitioned to comfort care per family wishes. He passed at 0904 on 08/14/2022 from cardiogenic shock. Additional Data Advance directives?: No Discharge Plan Discharge Patient Disposition: Condition: Stable Prescriptions: No Action atorvastatin 80 mg tablet 80 mg PO QPM carvedilol 6.25 mg tablet 12.5 mg PO BID prednisone 20 mg tablet 20 mg PO BID hydralazine 25 mg tablet 25 mg PO Q8H tramadol 50 mg tablet 50 mg PO Q8H PRN (Reason: Pain) levothyroxine 88 mcg tablet 88 mcg PO QAM tamsulosin 0.4 mg capsule 0.4 mg PO QPM amlodipine 10 mg tablet 10 mg PO QPM allopurinol 300 mg tablet 300 mg PO DAILY furosemide 20 mg tablet 40 mg PO DAILY Xarelto 15 mg tablet 15 mg PO QPM potassium chloride 20 mEq tablet extended release 20 meq PO QAM vitamin L73-uebpr acid 2,500-400 mcg Tablet,Disintegrating 1 tab PO DAILY DS Attestations Time Spent in /Discharge Care*: greater than 30 min Quality - AMI: AMI present?: No Quality - Stroke: CVA present?: No Quality - VTE: VTE present?: No Deep Vein Thrombosis/Pulmonary Embolism Present on Admission: No Coding Level of Care Code Acute Code for Chg Fwd Diagnoses Encephalopathy G93.40 Cardiogenic shock R57.0 CHF (congestive heart failure) I50.9 NSTEMI (non-ST elevated myocardial infarction) I21.4 ANGELLA (acute kidney injury) N17.9
[2022-08-15 17:40] LABS: Fungitell 1-3-B Glucan Assay <31 pg/mL; Interpretation NEGATIVE
[2022-08-15 18:14] LABS: Aspergillus AG,EIA,Serum NOT DETECTED; Aspergillus Galactomannan Inde <0.50
[2022-08-20 21:45] LABS: Histoplasma Galactomannan Ag <0.2 ng/mL
== END 2022-08-14 12:00 | disposition expired ==
PROVIDERS: Hospitalist; Internal Medicine; Student in an Organized Health Care Education/Training Program; Admitting Provider Student in an Organized Health Care Education/Training Program; PCP Internal Medicine; Visit Provider Internal Medicine
PROC: B2131ZZ Fluoroscopy of Multiple Coronary Artery Bypass Grafts using Low Osmolar Contrast (ICD-10-PCS; principal; 2022-08-05 11:00)
DX: I21.4 Non-ST elevation (NSTEMI) myocardial infarction (principal); G93.41 Metabolic encephalopathy; I50.23 Acute on chronic systolic (congestive) heart failure; N17.9 Acute kidney failure, unspecified; E87.1 Hypo-osmolality and hyponatremia; I25.10 Atherosclerotic heart disease of native coronary artery without angina pectoris; Z95.1 Presence of aortocoronary bypass graft; Z95.5 Presence of coronary angioplasty implant and graft; Z95.3 Presence of xenogenic heart valve; I71.40 Abdominal aortic aneurysm, without rupture, unspecified; I11.0 Hypertensive heart disease with heart failure; R57.0 Cardiogenic shock; Z51.5 Encounter for palliative care; I95.9 Hypotension, unspecified; M47.812 Spondylosis without myelopathy or radiculopathy, cervical region; I49.3 Ventricular premature depolarization; D64.9 Anemia, unspecified
CPT/HCPCS: 12345; 36415; 36416; 36569; 36592; 36600; 51702; 71045; 71250; 74176; 76770; 76857; 80048; 80051; 80053; 80069; 80202; 80503; 81001; 82330; 82533; 82550; 82803; 82805; 82962; 83735; 84100; 84436; 84443; 84484; 85025; 85347; 85730; 86403; 87040; 87070; 87205; 87305; 87385; 87449; 87486; 87581; 87633; 93005; 93455; 93970; 94660; 94664; 96376; 99152; 99153; C1751; C1769; C1887; C1894; C8924; C8929; J0282; J0692; J1170; J1642; J1644; J1940; J2060; J2185; J2250; J2270; J2405; J2543; J2997; J3010; J3370; J3465; J3475; J3490; J7030; J7050; J7060; P9046; Q3014; Q9956; Q9967